=== PATIENT | female | born 1995 | race Caucasian/White ===

== ENCOUNTER 2021-12-19 15:47 | Emergency (ER) | payer OTHER, SELFPAY ==
[2021-12-19 15:59] VITALS: BP 140/85; PULSE 65; RESP 16; TEMP 36.9; O2SAT 99; BMI 21.0
--- NOTE | 2021-12-19 18:51 | ED.WOUNDLAC ---
HPI - Wound/Laceration General Chief Complaint: Laceration/Wound Stated Complaint: Lac right index finger Time Seen by Provider: 12/19/21 16:10 History of Present Illness HPI narrative: 26-year-old young woman sustained laceration from a glass of leave at work to her right index finger. Presents here around 8 hours later as she does has been able to get it stop bleeding. 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 Is not complaining of significant pain. It is not noting lightheadedness. Was bleeding through Band-Aids. She notes how it seems to stop bleeding finally as she has been sitting here in the exam room applying significant pressure for a period of time. No bleeding problems otherwise noted. Related Data Allergies Allergy/AdvReac Type Severity Reaction Status Date / Time No Known Drug Allergies Allergy Verified 12/19/21 15:58 Review of Systems Status of ROS: Reports: 6 or more systems reviewed and unremarkable except as noted in History and below PFSH PFS Social History Smoking Status: Smoker, status unknown Do you use any of these nicotine containing products: Vaping Products Second hand tobacco smoke exposure: No How often do you have a drink containing alcohol: monthly or less How many standard drinks containing alcohol do you have on a typical day: 1 or 2 How often do you have six or more drinks on one occasion: Never AUDIT-C Alcohol total score: 1 Non-prescribed substance use: denies use and marijuana (any form) service: No Exam Narrative: Exam Narrative: Pleasant. NAD. Otherwise mildly anxious. Dressed in work attire. Breathing easily. Favoring the right hand. Has a 2 x 2 gauze has some some dried blood on it. Examination of right index finger in question shows approximately 1 cm partial dermal laceration semi horizontally on the radial side of the distal phalanx. There is dried blood in the area. It is not bleeding though with manipulation. Sensation intact. Well-perfused. Const: Vital Signs, click to edit/add: Vital Signs - 24 hr 12/19/21 15:59 Temperature 98.4 F Pulse Rate [Pulse Oximeter] 65 Respiratory Rate 16 Blood Pressure [Ri ght Upper Arm] 140/85 H Pulse Oximetry 99 Oxygen Delivery Me thod Room Air Documenting provider has reviewed patient's vital signs: yes Course Course Hospital Course: Discussed options for care. She would like her finger back to his close as possible weight was and is frustrated with how long it has been bleeding. Would like definitive care and least trouble going forward. And again worried about potential infection Vital Signs Vital signs: Initial Vital Signs Temperature 98.4 F 12/19/21 15:59 Temperature Source Temporal Artery Scan 12/19/21 15:59 Pulse Rate 65 12/19/21 15:59 Pulse Rhythm 12/19/21 15:59 Respiratory Rate 16 12/19/21 15:59 Blood Pressure 140/85 H 12/19/21 15:59 Blood Pressure Mean 103 12/19/21 15:59 Blood Pressure Position Supine 12/19/21 15:59 Pulse Oximetry 99 12/19/21 15:59 Oxygen Delivery Method 12/19/21 15:59 Vital Signs Temperature 98.4 F 12/19/21 15:59 Pulse Rate 65 12/19/21 15:59 Respiratory Rate 16 12/19/21 15:59 Blood Pressure 140/85 H 12/19/21 15:59 Pulse Oximetry 99 12/19/21 15:59 Oxygen Delivery Method 12/19/21 15:59 Temperature 98.4 F 12/19/21 15:59 Pulse Rate 65 12/19/21 15:59 Respiratory Rate 16 12/19/21 15:59 Blood Pressure 140/85 H 12/19/21 15:59 Pulse Oximetry 99 12/19/21 15:59 Oxygen Delivery Method 12/19/21 15:59 MDM - Wound/Laceration MDM Narrative Medical decision making narrative: Therefore proceed with suturing. Injected the radial side a digital block. This did achieve anesthesia to the more palmar surface suture that was placed. Cleansed with Shur-Clens type liquid. Sutured with total of 2 6-0 Ethilon interrupted sutures. good wound approximation is achieved. Control of bleeding. Antibiotic ointment and Band-Aid placed. Discharge Plan Discharge Clinical Impression: Finger laceration Patient Disposition: Home, Self-Care Condition: Improved Additional Instructions: Can clean up initially as needed. Sutures out in?6 days. Okay to get wet but avoid soaking while sutures are in. Antibiotic ointment for 3 days and then to a dry bandage. Report redness passing the first knuckle, marked increase in pain, purulent drainage. Elevation and ibuprofen for discomfort. Stand Alone Forms: [facility] Info Instructions
== END 2021-12-19 16:57 | disposition home or self-care (01) ==
LOC: ED 16:49
PROVIDERS: Emergency Provider Family Medicine; PCP Physician Assistant Medical
DX: S61.210A Laceration without foreign body of right index finger without damage to nail, initial encounter (principal); W25.XXXA Contact with sharp glass, initial encounter; Y93.89 Activity, other specified; Y92.89 Other specified places as the place of occurrence of the external cause; Y99.0 Civilian activity done for income or pay
CPT/HCPCS: 12001; 99282; 99283

== ENCOUNTER 2023-03-03 10:40 | Emergency (ER) | payer OTHER, SELFPAY ==
[2023-03-03 10:47] VITALS: BP 117/81; PULSE 96; RESP 16; TEMP 36.8; O2SAT 100; BMI 23.8
[2023-03-03 11:02] LABS: Appearance Urine Clear (Clear); Bilirubin Urine Negative (Negative); Blood Urine Trace-intact (Negative); Color Urine Yellow (Yellow); Glucose Urine Negative (Negative); Ketones Urine Negative (Negative); Leukocyte Esterase Urine Negative (Negative); Nitrite Urine Negative (Negative); Protein Urine Negative (Negative); Urobilinogen Urine 0.2 (0.2-1.0)
[2023-03-03 11:10] LABS: RBC Urine 0-2 (0-2); WBC Urine 0-2 (0-5)
[2023-03-03 11:11] LABS: Bacteria Urine Few; Squamous Epithelial Cell Urine Few (None-Few)
--- NOTE | 2023-03-03 11:46 | ED_ITS ---
HPI - General Adult General Time Seen by Provider: 11:46 Date Seen: 03/03/23 Chief complaint: Abdominal Pain Stated complaint: Abdominal/lower back pain, fever Time Seen by Provider: 03/03/23 11:46 Source: patient and RN notes reviewed Mode of arrival: ambulatory Limitations: no limitations History of Present Illness HPI narrative: Patient is a very pleasant 27-year-old female who comes to the emergency room with concerns regarding fever as well as abdominal and flank pain. Patient states that she woke yesterday with fever up to 102.1 with associated burning wi th urination. She notes that today the she still feels very cold and has been experiencing pain she shows me the epigastric area radiating to the pelvis along both lower quadrants and in the left flank of the kidney. She states that this is unusual for her and she know she sick because she should not feel this bad. She considered being seen last night for the kidney pain but decided to wait unt il today. She has had nausea with this but she has not had any diarrhea. She denies any respiratory symptoms. She does note unprotected sexual activity within the last 2 weeks. She usually has Partners use a condom but she did not this time. Jayde also asked me to look at an area on her right upper chest where she remove some jewelry. She notes that she had moved this she thought it was in fected and it still remains somewhat red. She is not having significant pain in this area. Related Data Home Medications Medication Instructions Recorded Confirmed gabapentin 300 mg capsule 300 mg PO 3XD 03/03/23 03/03/23 meloxicam 15 mg tablet 15 mg PO DAILY 03/03/23 03/03/23 Previous Rx's Medication Instructions Recorded tramadol 50 mg tablet 50 mg PO Q6H PRN pain #12 tabs 07/19/22 amoxicillin 875 mg-potassium 1 tab PO BID #7 tabs 03/03/23 clavulanate 125 mg tablet doxycycline monohydrate 100 mg 100 mg PO BID #14 tabs 03/03/23 tablet Allergies Allergy/AdvReac Type Severity Reaction Status Date / Time No Known Drug Allergies Allergy Verified 12/19/21 15:58 Review of Systems Status of ROS: Reports: 10 or more systems reviewed and unremarkable except as noted in History and below Const: Reports: fever, chills and fatigue Eyes: Denies: change in vision ENMT: Denies: throat pain, neck pain, throat swelling, ear pain, nasal discharge or nasal congestion Cardio: Denies: chest pain, swelling of feet/ankles, lightheadedness or shortness of breath with exertion Resp: Denies: shortness of breath or cough GI: Reports: abdominal pain and nausea; Denies: vomiting, diarrhea, constipation or blood in stool : Reports: painful urination Musculo: Reports: back pain; Denies: neck pain or extremity pain Integ/Breast: Reports: skin tenderness Neuro: Denies: headache Endo: Reports: fatigue Allergy/Immuno: Denies: throat swelling PFSH [facility] Social History Smoking Status: Smoker, status unknown Do you use any of these nicotine containing products: Vaping Products Second hand tobacco smoke exposure: No How often do you have a drink containing alcohol: monthly or less How many standard drinks containing alcohol do you have on a typical day: 1 or 2 How often do you have six or more drinks on one occasion: Never AUDIT-C Alcohol total score: 1 Non-prescribed substance use: marijuana (any form) service: No Exam Narrative: Exam Narrative: Alert and oriented. Talkative and nontoxic in appearance with a GCS of 15 External ears eyes nose clear. Heart with regular rate and rhythm and lungs are clear bilaterally. Abdomen is soft. She has tenderness of throughout especially epigastrium left upper quadrant left lower quadrant. No CVA tenderness with percussion. However palpation over the left flank does increase her discomfort. She does have pain in her abdomen when I hit the bottom of her heels. She is moving all extremities. There is no guarding with abdominal exam at this time. Normal external female genitalia. No evidence of discharge or odor. Const: Vital Signs, click to edit/add: Vital Signs - 24 hr 03/03/23 10:47 03/03/23 14:50 Temperature 98.3 F Pulse Rate [Pulse Oximeter] 96 77 Respiratory Rate 16 18 Blood Pressure [Le ft Upper Arm] 117/81 123/86 Pulse Oximetry 100 100 Oxygen Delivery Me thod Room Air Room Air Documenting provider has reviewed patient's vital signs: yes Course Course ED Course: Alert and oriented. Talkative and nontoxic in appearance with a GCS of 15 External ears eyes nose clear. Heart with regular rate and rhythm and lungs are clear bilaterally. Abdomen is soft. She has tenderness of throughout especially epigastrium left upper quadrant left lower quadrant. No CVA tenderness with percussion. However palpation over the left flank does increase her discomfort. She does have pain in her abdomen when I hit the bottom of her heels. She is moving all extremities. There is no guarding with abdominal exam at this time. Pelvic exam shows normal external genitalia. No obvious discharge and there is no foul odor. Wet prep accomplished. Cervical X without normality visually. Cervical swab done. No cervical motion tenderness on bimanual exam. Patient does note some discomfort with lower pelvic palpation during bimanual exam. No masses are palpated. Reevaluation(s) Reevaluation #1: Patient notes feeling improved after saline and Toradol. Reevaluation #2: Patient notes that she is feeling much better after antibiotics fluids and Toradol. Consultations Consultation #1: I had the pleasure of speaking to Dr. Jesus Alberto JOHNSTON. At this time Jayde presents with symptoms consistent with pyelonephritis but a reassuring urinalysis. Given recent unprotected sexual activity we do discuss use of antibiotics for potential PID treatment. PRESTON suggests initiation of Rocephin with outpatient doxycycline plus or minus Flagyl. Vital Signs Vital signs: Initial Vital Signs Temperature 98.3 F 03/03/23 10:47 Temperature Source Temporal Artery Scan 03/03/23 10:47 Pulse Rate 96 03/03/23 10:47 Respiratory Rate 16 03/03/23 10:47 Blood Pressure 117/81 03/03/23 10:47 Blood Pressure Mean 93 03/03/23 10:47 Blood Pressure Position Sitting 03/03/23 10:47 Pulse Oximetry 100 03/03/23 10:47 Oxygen Delivery Method Room Air 03/03/23 10:47 Vital Signs Temperature 98.3 F 03/03/23 10:47 Pulse Rate 96 03/03/23 10:47 Respiratory Rate 16 03/03/23 10:47 Blood Pressure 117/81 03/03/23 10:47 Pulse Oximetry 100 03/03/23 10:47 Oxygen Delivery Method Room Air 03/03/23 10:47 Temperature 98.3 F 03/03/23 10:47 Pulse Rate 77 03/03/23 14:50 Respiratory Rate 18 03/03/23 14:50 Blood Pressure 123/86 03/03/23 14:50 Pulse Oximetry 100 03/03/23 14:50 Oxygen Delivery Method Room Air 03/03/23 14:50 Medications Administered Medications: Discontinued Medications Generic Name Dose Route Start Last Admin Trade Name Symone PRN Reason Stop Dose Admin Sodium Chloride 1,000 mls @ 1,000 mls/hr 03/03/23 11:58 03/03/23 13:35 0.9 % Sodium Chloride 1000 Ml IV 03/03/23 12:57 Infused .Q1H [facility] Infusion Ceftriaxone Sodium 1 gm/ 100 mls @ 200 mls/hr 03/03/23 15:36 03/03/23 15:51 Sodium Chloride IVPB 03/03/23 15:37 200 mls/hr ONCE ONE Administration Ketorolac Tromethamine 15 mg 03/03/23 11:55 03/03/23 12:32 Ketorolac 15 Mg/Ml Inj IVP 03/03/23 11:56 15 mg ONCE ONE Administration Medical Decision Making MDM Narrative Medical decision making narrative: 1. Abdominal pain-patient has symptoms consistent with pyelonephritis but a reassuring urinalysis and CT. In combination with recent unprotected sexual activity will treat patient with antibiotics that would cover pyelonephritis and PID. Patient is given 1 g Rocephin IV in the ED. She will continue on Augmentin 875 mg p.o. b.i.d. x7 days as well as doxycycline 100 mg p.o. b.i.d. x7 days. She has a follow-up with her OBGYN at [facility] and less than a week for a right sided complex cyst. If this is not noted on today's CT. Patient is to push fluids and return to the emergency room for fever, worsening symptoms. 2. Unprotected sexual activity-. Hepatitis RPR, chlamydia, gonorrhea checked today. Gonorrhea is negative as is HIV. RPR and hepatitis panel as well as chlamydia currently pending. A wet prep is negative for yeast Trichomonas and clue cells. HCG is negative. 3. Healing Jewel re wound-no evidence of infection noted on right upper chest were patient had removed a Juul. 4. Disposition-home at this time. Sleep. Return for worsening symptoms and as needed. Follow-up as scheduled with OBGYN next week March 10. Medical Records Medical records reviewed: Yes I reviewed the patient's medical records Lab Data Lab results reviewed: Yes I reviewed the patient's lab results Labs: Lab Results 03/03/23 03/03/23 03/03/23 Range/Units 10:55 12:25 13:26 WBC 3.96 L (4.50-11.00) K/uL RBC 4.09 (4.00-5.20) m/uL Hgb 12.6 (12.0-16.0) gm/dL Hct 37.5 (33.0-51.0) % MCV 92 (80-100) fL MCH 31 (26-34) pg MCHC 34 (32-36) gm/dL RDW Coeff of Kasey 11.8 (11.5-15.5) % Plt Count 144 (140-440) K/uL Neut % (Auto) 73.1 H (42.0-72.0) % Lymph % (Auto) 17.9 L (20-44) % [place] % (Auto) 8.1 (0.0-11.0) % Eos % (Auto) 0.3 (0.0-7.0) % Baso % (Auto) 0.3 (0.0-3.0) % Neut # (Auto) 2.90 (1.7-7.0) K/uL Lymph # (Auto) 0.70 L (0.90-2.90) K/uL [place] # (Auto) 0.30 (0.00-0.90) K/UL Eos # (Auto) 0.00 (0.00-0.50) K/uL Baso # (Auto) 0.00 (0.00-0.30) K/uL Abs Immat Gran (auto) 0.00 (0.00-0.30) K/uL Imm/Tot Granulo (auto) 0.3 % Sodium 135 (135-149) mmol/L Potassium 3.7 (3.6-5.1) mmol/L Chloride 104 (96-114) mmol/L Carbon Dioxide 26 (20-32) mmol/L Anion Gap 5 L (7-15) mEq/L BUN 11 (5-24) mg/dL Creatinine 0.7 (0.5-1.5) mg/dL Estimated Creat Clear 93.79 Estimated GFR 120 ml/min Glucose 82 (60-115) mg/dL Calcium 8.6 (8.4-10.6) mg/dL Total Bilirubin 1.9 H (0.1-1.5) mg/dL Direct Bilirubin 0.3 (0.0-0.5) mg/dL AST 19 (12-35) U/L ALT 13 (4-35) U/L Alkaline Phosphatase 46 (40-150) U/L C-Reactive Protein 1.7 H (0.5-1.0) mg/dL Total Protein 6.6 (6.0-8.3) g/dL Albumin 4.0 (3.3-5.0) g/dL HCG, Qual Negative (Negative) Urine Color Yellow (Yellow) Urine Appearance Clear (Clear) Urine pH 6.0 (5.0-8.5) Ur Specific [place] 1.010 (1.000-1.030) Urine Protein Negative (Negative) Urine Glucose (UA) Negative (Negative) Urine Ketones Negative (Negative) Urine Blood Trace-intact A (Negative) Urine Nitrite Negative (Negative) Urine Bilirubin Negative (Negative) Urine Urobilinogen 0.2 (0.2-1.0) Ur Leukocyte Esterase Negative (Negative) Urine RBC 0-2 (0-2) Urine WBC 0-2 (0-5) Ur Squamous Epith Cells Few (None-Few) Urine Bacteria Few A (None) Vaginal Trichomonas (None Seen) Vaginal Yeast (None Seen) Vaginal Clue Cells (None Seen) C.trachomatis Ampl DNA (No Detected) SARS-CoV-2 (PCR) Negative SARS-CoV-2 (Negative) HIV 1&2 Ab/P24 Ag 4thGn Negative (Negative) Influenza Type A (PCR) Negative PCR FLU A (Negative) Influenza Type B (PCR) Negative PCR FLU B (Negative) N.gonorrhoeae Ampl DNA (No Detected) RSV (PCR) Negative PCR RSV (Negative) Lab Acknowledgement 03/03/23 03/03/23 Range/Units 14:18 14:25 WBC (4.50-11.00) K/uL RBC (4.00-5.20) m/uL Hgb (12.0-16.0) gm/dL Hct (33.0-51.0) % MCV (80-100) fL MCH (26-34) pg MCHC (32-36) gm/dL RDW Coeff of Kasey (11.5-15.5) % Plt Count (140-440) K/uL Neut % (Auto) (42.0-72.0) % Lymph % (Auto) (20-44) % [place] % (Auto) (0.0-11.0) % Eos % (Auto) (0.0-7.0) % Baso % (Auto) (0.0-3.0) % Neut # (Auto) (1.7-7.0) K/uL Lymph # (Auto) (0.90-2.90) K/uL [place] # (Auto) (0.00-0.90) K/UL Eos # (Auto) (0.00-0.50) K/uL Baso # (Auto) (0.00-0.30) K/uL Abs Immat Gran (auto) (0.00-0.30) K/uL Imm/Tot Granulo (auto) % Sodium (135-149) mmol/L Potassium (3.6-5.1) mmol/L Chloride (96-114) mmol/L Carbon Dioxide (20-32) mmol/L Anion Gap (7-15) mEq/L BUN (5-24) mg/dL Creatinine (0.5-1.5) mg/dL Estimated Creat Clear Estimated GFR ml/min Glucose (60-115) mg/dL Calcium (8.4-10.6) mg/dL Total Bilirubin (0.1-1.5) mg/dL Direct Bilirubin (0.0-0.5) mg/dL AST (12-35) U/L ALT (4-35) U/L Alkaline Phosphatase (40-150) U/L C-Reactive Protein (0.5-1.0) mg/dL Total Protein (6.0-8.3) g/dL Albumin (3.3-5.0) g/dL HCG, Qual (Negative) Urine Color (Yellow) Urine Appearance (Clear) Urine pH (5.0-8.5) Ur Specific [place] (1.000-1.030) Urine Protein (Negative) Urine Glucose (UA) (Negative) Urine Ketones (Negative) Urine Blood (Negative) Urine Nitrite (Negative) Urine Bilirubin (Negative) Urine Urobilinogen (0.2-1.0) Ur Leukocyte Esterase (Negative) Urine RBC (0-2) Urine WBC (0-5) Ur Squamous Epith Cells (None-Few) Urine Bacteria (None) Vaginal Trichomonas No Trichomonas Seen (None Seen) Vaginal Yeast No Yeast Seen (None Seen) Vaginal Clue Cells No Clue Cells Seen (None Seen) C.trachomatis Ampl DNA NOT DETECTED (No Detected) SARS-CoV-2 (PCR) (Negative) HIV 1&2 Ab/P24 Ag 4thGn (Negative) Influenza Type A (PCR) (Negative) Influenza Type B (PCR) (Negative) N.gonorrhoeae Ampl DNA NOT DETECTED (No Detected) RSV (PCR) (Negative) Lab Acknowledgement Test Added Imaging Data CT scan - abdomen: Attestation: I have reviewed the pertinent imaging results. Radiologist's impression: The lung bases are clear. The liver is normal in attenuation without intrahepatic biliary ductal dilatation. The portal vein is patent. The gallbladder is unremarkable without evidence of radiopaque calculus. There is no significant common biliary ductal dilatation or abrupt cut off. The spleen is normal in enhancement and size. The stomach and duodenum are grossly unremarkable. The pancreas is normal in enhancement without significant atrophy. The adrenal glands are unremarkable. The kidneys demonstrate preserved corticomedullary differentiation without evidence of obstructive uropathy. There is moderate stool seen throughout the colon with minimal distal colonic diverticulosis without evidence of diverticulitis. The appendix is unremarkable. There is no significant mesenteric, retroperitoneal, or pelvic sidewall lymph nodes. The aorta is nonaneurysmal. There is no significant atherosclerotic disease appreciated. There is an involuting left ovarian follicle. There is no free fluid or free air. The anterior abdominal wall is intact without significant hernias. The lumbar vertebral body heights are grossly maintained in satisfactory alignment without evidence of displaced fracture, lytic or blastic lesion. Impression: No acute intraabdominal abnormality is appreciated. The kidneys demonstrate preserved corticomedullary differentiation without obvious hydronephrosis or pyelonephritis. Incidental note made of an involuting left-sided ovarian follicle. Discharge Plan Discharge Clinical Impression: Acute flank pain Abdominal pain Qualifiers: Abdominal location: unspecified location Qualified Code(s): R10.9 - Unspecified abdominal pain Patient Disposition: Home, Self-Care Condition: Improved Additional Instructions: Start doxycycline and Augmentin before bedtime tonight. These medications will be twice a day or morning and night. Stay well hydrated and push fluids. If needed you may alternate ibuprofen and Tylenol every 4 hours. Return to the emergency room if you experience high fever, vomiting, increasing pain and as needed. Prescriptions: New doxycycline monohydrate 100 mg tablet 100 mg PO BID Qty: 14 0RF amoxicillin-pot clavulanate 875-125 mg tablet 1 tab PO BID Qty: 7 0RF No Action tramadol 50 mg tablet 50 mg PO Q6H PRN (Reason: pain) Qty: 12 0RF meloxicam 15 mg tablet 15 mg PO DAILY gabapentin 300 mg capsule 300 mg PO 3XD Follow Up/Referrals: Mahsa Abbott PA-C [Primary Care Provider] - Stand Alone Forms: [facility] Info Instructions
[2023-03-03] MEDS: KETOROLAC 15 MG/ML inj IVP (12:32)
[2023-03-03] MEDS: 0.9 % SODIUM CHLORIDE 1000 ml 1,000 ML IV (12:32)
[2023-03-03 12:37] LABS: Basophils Percent Auto 0.3 % (0.0-3.0); Eosinophils Percent Auto 0.3 % (0.0-7.0); Hematocrit 37.5 % (33.0-51.0); Hemoglobin* 12.6 gm/dL (12.0-16.0); Immature Granulocytes Pct Auto 0.3 %; Lymphocytes Percent Auto 17.9 % (20-44); Mean Corpuscular HGB Conc 34 gm/dL (32-36); Mean Corpuscular Hemoglobin 31 pg (26-34); Mean Corpuscular Volume 92 fL (80-100); Monocytes Percent Auto 8.1 % (0.0-11.0); Neutrophils Percent Auto 73.1 % (42.0-72.0); Platelet Count* 144 K/uL (140-440); RDW Coefficient of Variation % 11.8 % (11.5-15.5); Red Blood Count 4.09 m/uL (4.00-5.20); White Blood Count* 3.96 K/uL (4.50-11.00)
[2023-03-03 12:48] LABS: Slide Review Reflex No
[2023-03-03 12:57] LABS: Chloride* 104 mmol/L (96-114)
[2023-03-03 12:58] LABS: Potassium* 3.7 mmol/L (3.6-5.1); Sodium* 135 mmol/L (135-149)
[2023-03-03 13:00] LABS: Creatinine* 0.7 mg/dL (0.5-1.5); Est. Creatinine Clearance* 93.79; Estimated Glomerular Filt Rate 120 ml/min
[2023-03-03 13:01] LABS: Alanine Aminotransferase* 13 U/L (4-35); Alkaline Phosphatase* 46 U/L (40-150); Anion Gap 5 mEq/L (7-15); Aspartate Amino Transferase* 19 U/L (12-35); Blood Urea Nitrogen* 11 mg/dL (5-24); Calcium* 8.6 mg/dL (8.4-10.6); Carbon Dioxide* 26 mmol/L (20-32); Glucose* 82 mg/dL (60-115); Total Protein* 6.6 g/dL (6.0-8.3)
[2023-03-03 13:04] LABS: C Reactive Protein* 1.7 mg/dL (0.5-1.0)
[2023-03-03 13:06] LABS: HCG Qualitative Serum* Negative (Negative)
--- NOTE | 2023-03-03 13:17 | CRLHL7_ITS ---
For Patients: As a result of the Century Cures Act, medical imaging exams and procedure reports are released immediately into your electronic medical record. You may view this report before your referring provider. If you have questions, please contact your health care provider. Indication: Fever with abdominal and left flank pain Technique: Volumetric multidetector CT images of the abdomen and pelvis were obtained after the administration of intravenous contrast. 60 cc Isovue 370 low osmolar intravenous contrast Comparison: None available. Findings: The lung bases are clear. The liver is normal in attenuation without intrahepatic biliary ductal dilatation. The portal vein is patent. The gallbladder is unremarkable without evidence of radiopaque calculus. There is no significant common biliary ductal dilatation or abrupt cut off. The spleen is normal in enhancement and size. The stomach and duodenum are grossly unremarkable. The pancreas is normal in enhancement without significant atrophy. The adrenal glands are unremarkable. The kidneys demonstrate preserved corticomedullary differentiation without evidence of obstructive uropathy. There is moderate stool seen throughout the colon with minimal distal colonic diverticulosis without evidence of diverticulitis. The appendix is unremarkable. There is no significant mesenteric, retroperitoneal, or pelvic sidewall lymph nodes. The aorta is nonaneurysmal. There is no significant atherosclerotic disease appreciated. There is an involuting left ovarian follicle. There is no free fluid or free air. The anterior abdominal wall is intact without significant hernias. The lumbar vertebral body heights are grossly maintained in satisfactory alignment without evidence of displaced fracture, lytic or blastic lesion. Impression: No acute intraabdominal abnormality is appreciated. The kidneys demonstrate preserved corticomedullary differentiation without obvious hydronephrosis or pyelonephritis. Incidental note made of an involuting left-sided ovarian follicle. Please note that all CT scans at this facility use dose modulation, iterative reconstruction, and/or weight-based dosing when appropriate to reduce radiation dose to as low as reasonably achievable. Dictated by Kavin Hylton MD @ 03/03/2023 2:34:37 PM (Electronically Signed)
[2023-03-03 13:41] LABS: HIV 1/2/P24 Combo Screen* Negative (Negative)
[2023-03-03 14:10] LABS: PCR FLU A Negative PCR FLU A (Negative); PCR FLU B Negative PCR FLU B (Negative); PCR RSV Negative PCR RSV (Negative)
[2023-03-03 14:42] LABS: Bilirubin Direct* 0.3 mg/dL (0.0-0.5)
[2023-03-03 14:44] LABS: Bilirubin Total* 1.9 mg/dL (0.1-1.5)
[2023-03-03 14:47] LABS: SARS PCR* Negative SARS-CoV-2 (Negative)
[2023-03-03 14:50] VITALS: BP 123/86; PULSE 77; RESP 18; O2SAT 100
[2023-03-03 14:53] LABS: Clue Cells No Clue Cells Seen (None Seen); Trichomonas No Trichomonas Seen (None Seen); Yeast No Yeast Seen (None Seen)
[2023-03-03] MEDS: cefTRIAXone 1 GM in 0.9 % SODIUM CHLORIDE Mini-bag 100 ML IVPB (15:51)
[2023-03-03 16:06] LABS: Chlamydia DNA Amplified* NOT DETECTED (No Detected); GC DNA Amplified* NOT DETECTED (No Detected)
[2023-03-04 19:36] LABS: Hep A Ab, IgM Negative (Negative); Hep B Core Ab, IgM Negative (Negative); Hep B Surface Antigen Negative (Negative); Hep C Ab by CIA Index 0.06 IV; Hep C Ab by CIA Interp Negative (Negative)
[2023-03-04 19:57] LABS: Rapid Plasma Reagin (RPR) Non Reactive (Non Reactive)
== END 2023-03-03 16:49 | disposition home or self-care (01) ==
PROVIDERS: Emergency Provider Family Medicine; PCP Physician Assistant Medical
DX: R10.9 Unspecified abdominal pain (principal); Z72.51 High risk heterosexual behavior
CPT/HCPCS: 36415; 74177; 80053; 80074; 81001; 82248; 84703; 85025; 86140; 86592; 86703; 87086; 87210; 87491; 87591; 87631; 96365; 96375; 99284; 99285; J0696; J1885; J7030; Q9967

== ENCOUNTER 2024-02-01 14:44 | Emergency (ER) | payer OTHER, SELFPAY ==
[2024-02-01 15:02] VITALS: BP 113/64; PULSE 85; RESP 16; TEMP 36.7; O2SAT 98; BMI 21.6
--- NOTE | 2024-02-01 15:49 | ED.GENADULT ---
HPI - General Adult General Date Seen: 02/01/24 Chief complaint: Ear/Nose/Throat Problem Stated complaint: Eyes/ears burning post bug bite 5 days ago Time Seen by Provider: 02/01/24 15:48 History of Present Illness HPI narrative: This is a pleasant 28-year-old female presenting to the ER today for evaluation a painful burning rash affecting her left cheek and both of her eyes. She says she had a bug bite that occurred about fiber 6 days ago (she thinks it was an Beetle) that bit her on the left cheek. She took the Beetle off. The following morning she had had a swollen erythematous slightly purple hued area on her left cheek from the left cheek over the zygoma over the bug bite occurred up to her left eye. She also had a whitish pustule. She does have acne but does not think that this was an acne lesion. She she felt some fluid underneath a pustule on was able to express pus out. Ever since then she has had ongoing irritation of the skin on her left cheek as well as she has now developed redness and irritation of her upper and lower eyelids of both her left eye and right eye. The bus stop draining that day, last . A day or 2 later she also started to feel an indurated firm area of tissue just medial to where the pus had been draining on her left cheek. That is still there. She has had ongoing itchiness and burning affecting both her eyes and her left cheek since then. No other rashes. Today at work she was noting some blurriness of her vision. She has had some subjective feelings of warmth and possible feet either but has not measured a fever. No nasal congestion. No earache. Perhaps mild cough. No shortness of breath. No known sick exposures. She does not wear glasses or contacts. No known injury to her eyes or any chemical exposures. Related Data Home Medications ?Medication ?Instructions ?Recorded ?Confirmed gabapentin 300 mg capsule 300 mg PO 3XD 03/03/23 03/03/23 meloxicam 15 mg tablet 15 mg PO DAILY 03/03/23 03/03/23 Previous Rx's ?Medication ?Instructions ?Recorded tramadol 50 mg tablet 50 mg PO Q6H PRN pain #12 tabs 07/19/22 amoxicillin 875 mg-potassium 1 tab PO BID #7 tabs 03/03/23 clavulanate 125 mg tablet doxycycline monohydrate 100 mg 100 mg PO BID #14 tabs 03/03/23 tablet cephalexin 500 mg capsule 500 mg PO TID #21 caps 02/01/24 hydroxyzine HCl 25 mg tablet 25 mg PO TID PRN #14 tabs 02/01/24 prednisone 20 mg tablet 60 mg (3 x 20 mg) PO DAILY #15 tabs 02/01/24 Allergies Allergy/AdvReac Type Severity Reaction Status Date / Time No Known Drug Allergies Allergy Verified 12/19/21 15:58 PFSH [facility] Social History Smoking Status: Smoker, status unknown Do you use any of these nicotine containing products: Vaping Products Second hand tobacco smoke exposure: No How often do you have a drink containing alcohol: monthly or less How many standard drinks containing alcohol do you have on a typical day: 1 or 2 How often do you have six or more drinks on one occasion: Never AUDIT-C Alcohol total score: 1 Non-prescribed substance use: marijuana (any form) service: No Exam Narrative: Exam Narrative: Constitutional: Appears well-developed and well-nourished. Alert. Conversant. Non toxic. HENT: Head: Atraumatic. No depressed skull fracture, Raccoon Eyes, Perez's sign, or hemotympanum. Face normal. TMs normal Nose: Nose normal. Mucosa normal Mouth/Throat: Oral mucosa is clear and moist. no trismus. Pharynx normal. Tonsils symmetric. No tonsillar enlargement, erythema, or exudate. Eyes: Vulvar Conjunctivae normal. EOM normal. No exophthalmos or enophthalmos. Pupils equal, round, and reactive to light. No scleral icterus. She does have mild erythema affecting the skin her upper and lower eyelids bilaterally. No purulent drainage. Visual acuity 20/40 in the right eye, 20/70 left eye. No fluorescein uptake in either eye. No visual corneal foreign bodies. Neck: Normal range of motion. Neck supple. No tracheal deviation present. Cardiovascular: Normal rate, regular rhythm. No gallop. No friction rub. No murmur heard. Symmetric radial artery pulses Pulmonary/Chest: Effort normal. No stridor. No respiratory distress. No wheezes. No rales. No rhonchi Musculoskeletal: RUE: Normal range of motion. No tenderness. No deformity LUE: Normal range of motion. No tenderness. No deformity RLE: Normal range of motion. No edema. No tenderness. No deformity LLE: Normal range of motion. No edema. No tenderness. No deformity Lymph: No cervical adenopathy. Neurological: Alert and oriented to person, place, and time. Normal strength. CN II-VII intact. No sensory deficit. GCS eye subscore is 4. GCS verbal subscore is 5. GCS motor subscore is 6. Normal coordination Skin: No definite erythema of the skin of her cheek. There is roughly a 1 cm palpable area of firm indurated tissue on the left cheek over the zygoma without any palpable fluctuance. Possible small area of facial cellulitis. I do not think it represents a persistent abscess. Skin is otherwise warm and dry. No rash noted. No pallor. Normal capillary refill. Psychiatric: Normal mood. Normal affect. Const: Vital Signs, click to edit/add: Vital Signs - 24 hr 02/01/24 15:02 Temperature 98.1 F Pulse Rate [Pulse Oximeter] 85 Respiratory Rate 16 Blood Pressure [Ri ght Upper Arm] 113/64 Pulse Oximetry 98 Oxygen Delivery Me thod Room Air Course Vital Signs Vital signs: Initial Vital Signs Temperature 98.1 F 02/01/24 15:02 Temperature Source Temporal Artery Scan 02/01/24 15:02 Pulse Rate 85 02/01/24 15:02 Respiratory Rate 16 02/01/24 15:02 Blood Pressure 113/64 02/01/24 15:02 Blood Pressure Mean 80 02/01/24 15:02 Pulse Oximetry 98 02/01/24 15:02 Oxygen Delivery Method Room Air 02/01/24 15:02 Vital Signs Temperature 98.1 F 02/01/24 15:02 Pulse Rate 85 02/01/24 15:02 Respiratory Rate 16 02/01/24 15:02 Blood Pressure 113/64 02/01/24 15:02 Pulse Oximetry 98 02/01/24 15:02 Oxygen Delivery Method Room Air 02/01/24 15:02 Temperature 98.1 F 02/01/24 15:02 Pulse Rate 85 02/01/24 15:02 Respiratory Rate 16 02/01/24 15:02 Blood Pressure 113/64 02/01/24 15:02 Pulse Oximetry 98 02/01/24 15:02 Oxygen Delivery Method Room Air 02/01/24 15:02 Medical Decision Making MDM Narrative Medical decision making narrative: This patient presents for evaluation of skin redness upper left cheek and itchy red skin of both of her eyes affecting the upper and lower lids. She had a bug bite on her left cheek several days ago prior to onset of these other symptoms. The history, physical exam is consistent could be consistent with a mild left cheek cellulitis. She had a small area that was draining some purulent fluid several days ago but is no longer draining. I think there may be a small residual abscess capsule there but no residual abscess fluid require incision and drainage. There do not appear at this time to be any complication of cellulitis including abscess, necrotizing fascitis, lymphangitis, lymphadenitis, osteomyelitis, sepsis, or shock. The patient is not immunosuppressed or diabetic. Supportive outpatient management is indicated with antibiotics. Will start her on cephalexin 500 t.i.d.. The patient is instructed to follow-up with primary care physician to ensure no progression and rapid resolution and given precautions to return if high fever, spread greater than 2 cm outside the current area of induration, worsening pain, vomiting or any other worsening. Questions answered and return precautions reviewed. With the itchy eyes consider possible allergic phenomena. She does not have any conjunctivitis affecting the bulbar conjunctiva. She may have some blepharitis of her upper and lower lids. She is reporting some blurry vision for the past couple of days but I think that is probably related to tear film. Fluorescein exam is normal. No evidence for foreign bodies in the cornea or under the lids. Consider possible allergic phenomena or viral itching. Will try her on a course of prednisone. Hydroxyzine for itching. Discharge Plan Discharge Clinical Impression: Bug bite, Blepharitis, Cellulitis, face Instructions: Cellulitis (ED), Blepharitis (ED) Additional Instructions: As we discussed, please return to the ER if you have worsening symptoms as especially worsening swelling of her eyelids, worsening vision, high fever, or increasing swelling of her cheek. If you are not substantially improved within 48 hours, please return to the ER or recheck with your doctor. Prescriptions: New cephalexin 500 mg capsule 500 mg PO TID Qty: 21 0RF hydroxyzine HCl 25 mg tablet 25 mg PO TID PRNQty: 14 0RF prednisone 20 mg tablet 60 mg PO DAILY Qty: 15 0RF No Action tramadol 50 mg tablet 50 mg PO Q6H PRN (Reason: pain) Qty: 12 0RF meloxicam 15 mg tablet 15 mg PO DAILY gabapentin 300 mg capsule 300 mg PO 3XD doxycycline monohydrate 100 mg tablet 100 mg PO BID Qty: 14 0RF amoxicillin-pot clavulanate 875-125 mg tablet 1 tab PO BID Qty: 7 0RF Follow Up/Referrals: Mahsa Abbott PA-C [Primary Care Provider] - Stand Alone Forms: MyHealth Info Instructions
[2024-02-01] MEDS: FLUORESCEIN SODIUM TOPICAL STRIP 1 STRIP EYE-BOTH (17:10)
== END 2024-02-01 17:20 | disposition home or self-care (01) ==
LOC: ED 16:31
PROVIDERS: Emergency Provider Emergency Medicine; PCP Physician Assistant Medical
DX: L03.211 Cellulitis of face (principal); H01.00B Unspecified blepharitis left eye, upper and lower eyelids; H01.00A Unspecified blepharitis right eye, upper and lower eyelids; W57.XXXA Bitten or stung by nonvenomous insect and other nonvenomous arthropods, initial encounter
CPT/HCPCS: 99283; 99284; A9270

== ENCOUNTER 2024-04-16 14:50 | Emergency (ER) | payer OTHER, SELFPAY ==
--- OUTSIDE RECORDS SUMMARY | 2024-04-16 14:53 | XMS_ITS | Clinical Summary ---
Author Organization [facility] Address [place], [place] [address] Care Team Providers Care Staffing Rn Name Role Phone Mahsa Abbott Primary Care Provider Allergies Active Allergy Reactions Criticality Noted Date Comments Blood-Group Specific Substance *Unknown 09/24/2013 Patient has a probable passive anti-D antibody. Orders for blood products may be delayed. Medications albuterol HFA (Ventolin HFA) 90 mcg/actuation inhalerIndications :Cough Inhale 1-2 Puffs by mouth every 6 hours if needed for Shortness Of Breath. 1 Each 2 Active naloxone (NARCAN) 4 mg/actuation nasal sprayIndications:A ccidental overdose, initial encounter,Opioid abuse (HC) Inhale 1 [place] into affected nostril(s) each time if needed for Patient Diff To Arouse or Resp Rate < 8 / min. Additional doses may be given every 2 to 3 minutes until emergency medical assistance arrives. 2 Each 01/21/2022 3:41 PM BOAT DRIVER 2 Active LORazepam (ATIVAN) 0.5 mg tabIndications:Anx iety Take 1 Tablet (0.5 mg) by mouth 2 times daily if needed for Anxiety. 60 Tablet 3 Active triamcinolone 0.5% (ARISTOCORT) 0.5 % creamIndications:B ug bite, initial encounter Apply topically to affected area(s) three times daily. Apply to wrist 30 g 3 Active ipratropium (ATROVENT NASAL) 21 mcg (0.03 %) nasal sprayIndications:E ustachian tube dysfunction, right Inhale 2 Sprays into affected nostril(s) three times daily. [place] dose in each nostril. 30 mL 3 Active gabapentin (NEURONTIN) 300 mg capsuleIndications :Tension headache,Pelvic pain Take 1 Capsule (300 mg) by mouth three times daily. 90 Capsule 3 3 Active ondansetron (ZOFRAN ODT) 4 mg disintegrating tabletIndications: Nausea Place 1 Tablet (4 mg) on the tongue every 8 hours if needed for Nausea/Vomitin g. 30 Tablet 3 Active meloxicam 15 mg tabletIndications: Tension headache TAKE 1 TABLET(15 MG) BY MOUTH EVERY DAY 90 Tablet 4 Active SUMAtriptan (IMITREX) 100 mg tabletIndications: Headache syndrome GIVE AT MINIMUM OF 2 HOURS APART. MAX DOSE 200MG PER 24 HOURS. TAKE 1 TABLET BY MOUTH ONE TIME NEEDED FOR MIGRAINE 10 Tablet 4 Active Active Problems Problem Noted Date Diagnosed Date Pap smear for cervical cancer screening 04/13/19 23 Overview (04/13/2022): 03/2022: NIL/HPV neg. Plan: Pap and HPV in 5 years. Posttraumatic stress disorder 10/18/2018 Severe episode of recurrent major depressive disorder, without psychotic features 10/18/2018 Asthma 07/17/2009 Resolved Problems Problem Noted Date Diagnosed Date Resolved Date Encounter for insertion of i ntrauterine contraceptive device (IUD) 07/08/2016 01/16/2021 Overview (07/08/2016): gurmeet 07/07/2016 Post depression 12/27/201305/25 Threatened labor 09/24/2013 08/18/2014 Vaginal delivery 09/24/2013 08/18/2014 Thrush 09/20/2013 07/08/2016 History of substance abuse 09/20/2013 0 05/25/2022 History of suicide attempt 09/20/2013 0 05/25/2022 High-risk supervision 09/20/2013 08/18/2014 Very young maternal age 0709/20/201308/06 UTI in 09/20/2013 08/18/2014 SGA (small for gestational age) 09/20/2013 08/18/2014 Rh negative status during 09/13/2013 08/18/2014 UTI (urinary tract infection ) in in second trimester 09/13/2013 09/20/2013 Premature rupture of membran es in , antepartum 09/11/2013 08/18/2014 Supervision of normal first 05/11/2013 09/20/2013 Overview (08/03/2013): Technique: Transabdominal scanning is obtained through a gravid uterus. Findings: There is a single gestational sac seen within the uterus. Yolk sac is identified. [place]-rump length measures 1.35 cm consistent with a gestational age of 7 weeks 4 days. heart rate is 154 beats per minute. The left ovary measured 2.4 x 1.4 x 1.7 cm. The right ovary measured 2.5 x 1.8 x 1.4 cm. Impression: 1. Single living intrauterine of 7 weeks 4 days with estimated date of confinement of 12/08/2013. FOB Jose C O Negative 2. heart rate 154 beats per minute Indication: survey. Technique: Sonographic images were obtained through a gravid uterus. Findings: There is a single fetus in a cephalic presentation with a heart rate of 146 beats per minute. Placenta is located anteriorly. MARC is normal at 12.9 cm. Cervix measures 3.5 cm. No anomalies are seen on the survey. Gestational age by composite measurements is 20 weeks 4 days for an estimated date of confinement of 12/10/2013. Estimated weight is 386 g which is in the 46th percentile. Impressions.: 1. Single fetus in a cephalic presentation with a heart rate of 146 beats per minute. 2. No anomalies seen on the survey. 3. Gestational age by composite measurements 20 weeks 4 days for an estimated date of confinement of 12/10/2013. Suicide attempt by inadequate means 12/13/2012 09/20/2013 Heroin withdrawal 12/13/2012 09/20/2013 Attention deficit disorder w ith hyperactivity(314.01) 01/25/2008 05/25/2022 Anxiety state, unspecified 01/25/2008 0 10/18/2018 Major depressive disorder, s deepika episode, unspecified 11/22/2007 10/18/2018 Encounters Date Type Department Care Team Description 02/22/2024 7:00 AM BOAT DRIVER Orders Only [facility] [address] [place] [address] Lab, [place] Lab 02/21/2024 1:40 PM BOAT DRIVER Office Visit [facility] [address] [place] [address] Mahsa Abbott PA Gi Problem (Stomach burning, a lot nausea, not eating or drinking much, anal itching, on and off L sided back pain. Treated her self for parasites and wants to discuss. Eye issues, feels like something is moving inside her eyes.) 02/21/2024 Travel 02/01/2024 Nurse Triage [facility] [address] [place] [address] Mahsa Abbott PA face swelling 01/24/2024 Travel from Last 3 Months Immunizations Name Administration Dates Next Due DTP 09/24/1999, 6,06/17/1994,05/05,02/17/1994 HIB PRP-T (ActHIB,Hiberix) 12/28/1994,06/18/1994 ,02/17/1994 Hepatitis A (Peds) 11/26/2010,12/05/2008 Hepatitis B (Adult) 08/31/2018 Hepatitis B (Peds) 05/30/2012 Human Papilloma Virus Vaccine 03/26/2010, 010,12/05/2008 Influenza Virus, Unspecified 10/27/2018,12/21/19 17,12/21/2015 Influenza, IIV3 (Age 6-35 mos) 01/21/2011 Influenza, IIV3 (Age >=3 years) 01/21/2011,03/26 Influenza, IIV4 03/04/2020,01/17/2015 MENINGOCOCCAL VACCINE 2 VIAL 2MO-55YO (MENVEO) 05/30/2012 MMR 09/24/1999,03/19/1995 Meningococcal Vaccine (Menactra) 12/05/2008 Oral Polio Vaccine 03/19/1995, 5,05/05/1994,02/17 Td (Age >=7 Years) 04/15/2016 Tdap 11/04/2020,12/24/2005 Varicella Vaccine 11/26/2010,12/05/2008 Family History Medical History Relation Name Comments Unknown Father Cancer-colon Maternal Grandfather d, Heart Disease Maternal Grandmother open h eart surgery Good Health Mother ? cervical canc er Cancer-breast Other 1 aunt Cancer Other 2 aunt Cancer Paternal Grandfather d, lung and bladder cancer Other Paternal Grandmother d, alcoholism, fell and hit head Other Sister 2 tumor on arm Relation Name Status Comments Father Alive no contact Maternal Grandfather Maternal Grandmother Alive Mother Alive Other 1 Other 2 Paternal Grandfather Paternal Grandmother Sister 1 Alive Sister 2 Social History Tobacco Use Types Packs/Day Years Used Date Smoking Tobacco: Former Cigarettes 0.5 17.8 S tarted: 06/17/2006 Smokeless Tobacco: Never Tobacco Cessation:Counseling Given: No Alcohol Use Standard Drinks/Week Comments Yes 0 (1 standard drink = 0.6 oz pur e alcohol) rare PHQ-2 Answer Date Recorded PHQ-2 TOTAL SCORE 2 06/17/2020 Social Connections Answer Date Recorded Do you often feel lonely or isolated from those around you? 0 02/21/2024 Financial Resource Strain Answer Date R ecorded Difficulty of Paying Living Expenses Not on file 02/21/2024 Difficulty of Paying Living Expenses 3 02/21/2024 Food Insecurity Answer Date Recorded Do you worry your food will run out before you are able to buy more? 2 02/21/2024 Transportation Needs Answer Date Record ed Does lack of transportation keep you from medica l appointments? 1 02/21/2024 Does lack of transportation keep you from work, meetings or getting things that you need? 1 02/21/2024 Housing Stability Answer Date Recorded What is your housing situation today? 1 02/21/2024 Utilities Answer Date Recorded Do you have trouble paying f or utilities (for example, heat, electricity, water, phone)? 2 02/21/2024 Comments No Sex and Gender Information Value Date Recorded Sex Assigned at Not on file Legal Sex Female 5:21 AM BOAT DRIVER Gender Identity Not on file Sexual Orientation Not on file Occupation Industry Job Start Date Job End Date student Not on file Not on file Not on file Obstetrics History Para Term AB IAB SAB Ectopic Multiple Livin g Live Births 1 1 0 1 0 0 0 0 0 0 Date Outcome GA Total Labor Labor/2nd/3rd Weight Sex Type Anes PTL Joanne A1 A5 Name Clin 4 29w 2d 1.27 kg (2 lb 12.8 oz) F 9 9 BLAED E,BG Delivery Location:[facility] Last Filed Vital Signs Vital Sign Reading Time Taken Comments Blood Pressure 121/84 02/21/2024 1:50 PM BOAT DRIVER Pulse 80 02/21/2024 1:50 PM BOAT DRIVER Temperature 36.8 C (98.2 F) 12/03/2022 1:23 PM CDT Respiratory Rate 20 12/03/2022 1:23 PM CDT Oxygen Saturation 98% 12/03/2022 1:23 PM CDT Inhaled Oxygen Concentration - - Weight 54.4 kg (120 lb) 02/21/2024 1:50 PM BOAT DRIVER Height 157.5 cm (5' 2) 03/23/2022 11:14 AM BOAT DRIVER Body Mass Index 21.95 03/23/2022 11:14 AM BOAT DRIVER Plan of Treatment Upcoming Encounters Date Type Department Care Team (Late st Contact Info) Description 04/19/2024 2:20 PM BOAT DRIVER Office Visit [facility] [address] [place] [address] Mahsa Abbott PA [address] [place] [address] Health Maintenance Due Date Last Done Comments Depression screening for age 12+ 06/18/2021 06/18/2020, 06/17/2020, 02/14/2020, Additional history exists BMI (ht and wt on same day) for age 18+ 03/23/2023 03/23/2022, 02/14/2021, 02/13/2019, Additional history exists COVID-19 vaccine series ( season) 2023 Influenza for age 9-49 11/07/2023 0, 10/27/2018, 12/20/2016, Additional history exists Pap test for age 21-65 03/23/2027 3, 03/23/2022, 07/12/2018, Additional history exists Tetanus booster 11/04/2030 11/04/2020, 02/0 10/2016, 12/24/2005 Tdap Completed 11/04/2020, 12/24/2005 Hepatitis C screening for age 18-79 Completed 03/23/2022, 05/13/2021, 03/04/2020, Additional history exists HIV for age 15-65 Completed 02/21/2024, , 05/13/2021, Additional history exists Pneumococcal series for age 6-49 Aged Out No longer eligible based on patient's age to complete this topic Procedures Procedure Name Priority Date/Time Associated Diagnosis Comments RESULT (REFLEX ONLY) Routine 02/22/2024 6:45 AM BOAT DRIVER Abdominal pain, generalized Arthralgia, unspecified joint Morning joint stiffness Weight loss Fatigue, unspecified type STOOL PATHOGEN MULTIPLEX PCR PANEL Routine 02/22/2024 6:45 AM BOAT DRIVER Abdominal pain, generalized Arthralgia, unspecified joint Morning joint stiffness Weight loss Fatigue, unspecified type OVA + PARASITE EXAM Routine 02/22/2024 6 :45 AM BOAT DRIVER Abdominal pain, generalized Arthralgia, unspecified joint Morning joint stiffness Weight loss Fatigue, unspecified type CBC WITH AUTO DIFFERENTIAL Routine 02/21/2024 2:40 PM BOAT DRIVER Abdominal pain, generalized Arthralgia, unspecified joint Morning joint stiffness Weight loss Fatigue, unspecified type COMP METABOLIC PANEL Routine 02/21/2024 2:40 PM BOAT DRIVER Abdominal pain, generalized Arthralgia, unspecified joint Morning joint stiffness Weight loss Fatigue, unspecified type ANTINUCLEAR ANTIBODY BY IFA Routine 02/21/2024 2:40 PM BOAT DRIVER Abdominal pain, generalized Arthralgia, unspecified joint Morning joint stiffness Weight loss Fatigue, unspecified type CYCLIC CITRULLINE PEPTIDE Routine 02/21/2024 2:40 PM BOAT DRIVER Abdominal pain, generalized Arthralgia, unspecified joint Morning joint stiffness Weight loss Fatigue, unspecified type LYME SCREEN W/REFLEX Routine 02/21/2024 2:40 PM BOAT DRIVER Abdominal pain, generalized Arthralgia, unspecified joint Morning joint stiffness Weight loss Fatigue, unspecified type RA QUANTITATIVE Routine 02/21/2024 2:40 PM BOAT DRIVER Abdominal pain, generalized Arthralgia, unspecified joint Morning joint stiffness Weight loss Fatigue, unspecified type SEDIMENTATION RATE Routine 02/21/2024 2: 40 PM BOAT DRIVER Abdominal pain, generalized Arthralgia, unspecified joint Morning joint stiffness Weight loss Fatigue, unspecified type C-REACTIVE PROTEIN Routine 02/21/2024 2: 40 PM BOAT DRIVER Abdominal pain, generalized Arthralgia, unspecified joint Morning joint stiffness Weight loss Fatigue, unspecified type TSH Routine 02/21/2024 2:40 PM BOAT DRIVER Abdominal pain, generalized Arthralgia, unspecified joint Morning joint stiffness Weight loss Fatigue, unspecified type FERRITIN Routine 02/21/2024 2:40 PM BOAT DRIVER Abdominal pain, generalized Arthralgia, unspecified joint Morning joint stiffness Weight loss Fatigue, unspecified type IRON PLUS IRON BINDING CAP Routine 02/21/2024 2:40 PM BOAT DRIVER Abdominal pain, generalized Arthralgia, unspecified joint Morning joint stiffness Weight loss Fatigue, unspecified type T4,FREE Routine 02/21/2024 2:40 PM BOAT DRIVER Abdominal pain, generalized Arthralgia, unspecified joint Morning joint stiffness Weight loss Fatigue, unspecified type ANTI HIV 1/2 Routine 02/21/2024 2:40 PM BOAT DRIVER Abdominal pain, generalized Arthralgia, unspecified joint Morning joint stiffness Weight loss Fatigue, unspecified type TREPONEMA PALLIDUM Routine 02/21/2024 2: 36 PM BOAT DRIVER Abdominal pain, generalized Arthralgia, unspecified joint Morning joint stiffness Weight loss Fatigue, unspecified type LC HCV ANTIBODY RFX TO QUANT PCR Routine 03/23/2022 12:03 PM BOAT DRIVER Screen for STD (sexually transmitted disease) HPV HIGH RISK Routine 03/23/2022 11:36 AM BOAT DRIVER Cervical cancer screening Screening for cervical cancer from Last 3 Months or Most Recently Relevant to Health Maintenance Results * RESULT (REFLEX ONLY) (02/22/2024 6:45 AM BOAT DRIVER) Result 1 Comment 03/03/2024 2:07 PM BOAT DRIVER [facility] (CET) Comment: No ova, cysts, or parasites seen. One negative specimen does not rule out the possibility of a parasitic infection. Stool STOOL SPECIMEN / Unknown Non-Blood / Unknown 02/22/2024 6:45 AM BOAT DRIVER 02/22/2024 9:[address] [facility] ESOTERIC TESTING (CET) - 03/03/2024 2:07 PM BOAT DRIVER Performed at: [address] [place] [address] [address], [place] [id number] Aircraft Motor Mechanic: GEETHA Rocha MD, Phone: [phone] us Mahsa MENON LABORATORY Final R esult [facility] ([facility]) [address] [place] [address] * OVA + PARASITE EXAM (02/22/2024 6:45 AM BOAT DRIVER) Ova + Parasite Exam Final report 03/03/2024 2:[address] [facility]ERIC TESTING (CET) Comment: These results were obtained using wet preparation(s) and trichrome stained smear. This test does not include testing for Cryptosporidium parvum, Cyclospora, or Microsporidia. Stool STOOL SPECIMEN / Unknown Non-Blood / Unknown 02/22/2024 6:45 AM BOAT DRIVER 02/22/2024 9:[address] [facility] ESOTERIC TESTING (CET) - 03/03/2024 2:07 PM BOAT DRIVER Performed at: [address] [place] [address] [address], [place], [place] [id number] Aircraft Motor Mechanic: GEETHA Rocha MD, Phone: [phone] Mahsa MENON SEND OUTS Final R esult [facility] ([facility]) [facility] [place] [address], [place] * STOOL PATHOGEN MULTIPLEX PCR PANEL (02/22/2024 6:45 AM BOAT DRIVER) Campylobacter NOT Detected NOT Detected 02/22/2024 10:44 PM BOAT DRIVER [facility] Salmonella NOT Detected NOT Detected 02/22/2024 10:44 PM BOAT DRIVER [facility] Shigella NOT Detected NOT Detected 02/22/2024 10:44 PM BOAT DRIVER [facility] Vibrio NOT Detected NOT Detected 02/22/2024 10:44 PM BOAT DRIVER [facility] Yersinia Enterocolitica NOT Detected NOT Detected 02/22/2024 10:44 PM BOAT DRIVER [facility] Shiga Toxin 1 NOT Detected NOT Detected 02/22/2024 10:44 PM BOAT DRIVER [facility] Shiga Toxin 2 NOT Detected NOT Detected 02/22/2024 10:44 PM BOAT DRIVER [facility] Norovirus NOT Detected NOT Detected 02/22/2024 10:44 PM BOAT DRIVER [facility] Rotavirus NOT Detected NOT Detected 02/22/2024 10:44 PM BOAT DRIVER [facility] Stool STOOL SPECIMEN / Unknown Non-Blood / Unknown 02/22/2024 6:45 AM BOAT DRIVER 02/22/2024 9:35 AM BOAT DRIVER [facility]OR[facility] - 02/22/2024 10:44 PM BOAT DRIVER This test is a Culture Independent Diagnostic Test (CIDT) therefore isolates are not available for susceptibility testing. Antibiotic treatment is often contraindicated and may be detrimental in cases of enteric infections, thus routine susceptibility testing is not recommended. Mahsa MENON MICROBIOLOGY Final R esult [facility] [address] [place] [address], [place] * SEDIMENTATION RATE (02/21/2024 2:40 PM BOAT DRIVER) Pathologist [facility] SED RATE BY MODIFIED WESTERGREN 6 < OR = 20 mm/h [facility] [place] Blood BLOOD SPECIMEN / Unknown 02/21/2024 2:40 PM BOAT DRIVER 02/21/2024 2:41 PM BOAT DRIVER Mahsa MENON HEMATOLOGY Final R esult Performing Organization Address [facility]/ZIP Co de Phone Number [facility] [address] [place] [address], [place] [phone] [employer] [place] [address] [place] [address] * ANTINUCLEAR ANTIBODY BY IFA (02/21/2024 2:40 PM BOAT DRIVER) Pathologist [facility] CHANCE SCREEN, IFA NEGATIVE NEGATIVE [facility] [place] Comment: CHANCE IFA is a first line screen for detecting the presence of up to approximately 150 autoantibodies in various autoimmune diseases. A negative CHANCE IFA result suggests an CHANCE-associated autoimmune disease is not present at this time, but is not definitive. If there is high clinical suspicion for Sjogren's syndrome, testing for anti-SS-A/Ro antibody should be considered. Anti-Yani-1 antibody should be considered for clinically suspected inflammatory myopathies. AC-0: Negative International Consensus on CHANCE Patterns (https://doi.org/10.1515/qmqm-1777-6614) For additional information, please refer to http://education.Polyplus-transfection/faq/HPK791 (This link is being provided for informational/ educational purposes only.) Blood BLOOD SPECIMEN / Unknown 02/21/2024 2:40 PM BOAT DRIVER 02/21/2024 2:41 PM BOAT DRIVER Mahsa MENON CHEMISTRY Final R esult [facility] [address] [facility] [place] [address], [place] [phone] [facility] [address] [facility] [place] [address] * CYCLIC CITRULLINE PEPTIDE (02/21/2024 2:40 PM BOAT DRIVER) [facility] CYCLIC CITRULLINATED PEPTIDE (CCP) AB (IGG) <16 UNITS [facility] Comment: Reference Range Negative: <20 Weak Positive: 20-39 Moderate Positive: 40-59 Strong Positive: >59 Blood BLOOD SPECIMEN / Unknown 02/21/2024 2:40 PM BOAT DRIVER 02/21/2024 2:41 PM BOAT DRIVER us Mahsa MENON SEND OUTS Final R esult Performing Organization Address City/[facility]/ZIP Co de Phone Number [facility] [address] [place] [address], [facility] [address] [place] [address] * TSH (02/21/2024 2:40 PM BOAT DRIVER) [facility] TSH 0.41 mIU/L [facility] Comment: Reference Range > or = 20 Years 0.40-4.50 Ranges First trimester 0.26-2.66 Second trimester 0.55-2.73 Third trimester 0.43-2.91 Blood BLOOD SPECIMEN / Unknown 02/21/2024 2:40 PM BOAT DRIVER 02/21/2024 2:41 PM BOAT DRIVER us Mahsa MENON CHEMISTRY Final R esult [facility] [address] [place] [address], [place] [phone] [facility] [address] [facility] [place] [address] * IRON PLUS IRON BINDING CAP (02/21/2024 2:40 PM BOAT DRIVER) [facility] IRON, TOTAL 77 40 - 190 mcg/dL [facility] IRON BINDING CAPACITY 295 250 - 450 mcg/dL (calc) [facility] % SATURATION 26 16 - 45 % (calc) [facility] Blood BLOOD SPECIMEN / Unknown 02/21/2024 2:40 PM BOAT DRIVER 02/21/2024 2:41 PM BOAT DRIVER Mahsa MENON CHEMISTRY Final R esult Performing Organization Address City/State/[facility] Co de Phone Number [facility] [address] [place] [address], [facility] [address] [place] [address] * LYME SCREEN W/REFLEX (02/21/2024 2:40 PM BOAT DRIVER) [facility] LYME AB, SCREEN < or = 0.90 index [facility], Comment: REFERENCE RANGE: < OR = 0.90 Index Index Interpretation < OR = 0.90 NEGATIVE 0.91 - 1.09 EQUIVOCAL > OR = 1.10 POSITIVE This assay measures Lyme Disease (Borrelia burgdorferi) IgG plus IgM antibodies; it does not distinguish results that are both IgG and IgM positive from results that are either IgG or IgM positive. As recommended by the Centers for Disease Control and Prevention (CDC), all samples with positive or equivocal results in this screening assay will be tested using separate supplemental Lyme IgG and IgM immunoassays. Positive or equivocal screening assay results should not be interpreted as truly positive until verified as such using the supplemental assays. Screening and/or supplemental tests for Lyme disease antibodies may be falsely negative in early stages of Lyme disease, including the period when erythema migrans is apparent. These assays may be falsely positive in patients with other spirochetal diseases (e.g., syphilis) or infectious mononucleosis. Blood BLOOD SPECIMEN / Unknown 02/21/2024 2:40 PM BOAT DRIVER 02/21/2024 2:41 PM BOAT DRIVER Mahsa MENON SEND OUTS Final R esult [facility] [address] [place] [address], [facility], [address] [place] [address] * RA QUANTITATIVE (02/21/2024 2:40 PM BOAT DRIVER) Pathologist [facility] RHEUMATOID FACTOR <10 <14 IU/mL [facility] [place] Blood BLOOD SPECIMEN / Unknown 02/21/2024 2:40 PM BOAT DRIVER 02/21/2024 2:41 PM BOAT DRIVER Mahsa MENON SEND OUTS Final R esult [facility] [address] [place] [address], [facility] [address] [place] [address] * ANTI HIV 1/2 (02/21/2024 2:40 PM BOAT DRIVER) Pathologist [facility] HIV AG/AB, 4TH GEN NON-REACT YA NON-REACT YA [facility] Comment: HIV-1 antigen and HIV-1/HIV-2 antibodies were not detected. There is no laboratory evidence of HIV infection. PLEASE NOTE: This information has been disclosed to you from records whose confidentiality may be protected by state law. If your state requires such protection, then the state law prohibits you from making any further disclosure of the information without the specific written consent of the person to whom it pertains, or as otherwise permitted by law. A general authorization for the release of medical or other information is NOT sufficient for this purpose. For additional information please refer to http://education.PerfectSearch.NativeEnergy/faq/TKK670 (This link is being provided for informational/ educational purposes only.) The performance of this assay has not been clinically validated in patients less than 2 years old. Blood BLOOD SPECIMEN / Unknown 02/21/2024 2:40 PM BOAT DRIVER 02/21/2024 2:41 PM BOAT DRIVER Mahsa MENON SEND OUTS Final R esult Performing Organization Address City/[facility]/ZIP Co de Phone Number Abine [id number] [place] [address], [place] [phone] [employer] [address] [place] [address] * C-REACTIVE PROTEIN (02/21/2024 2:40 PM BOAT DRIVER) [facility] C-REACTIVE PROTEIN <3.0 <8.0 mg/L [employer] Blood BLOOD SPECIMEN / Unknown 02/21/2024 2:40 PM BOAT DRIVER 02/21/2024 2:41 PM BOAT DRIVER Mahsa MENON CHEMISTRY Final R esult Performing Organization Address City/[facility] Co de Phone Number Abine [address] [phone], [employer] [address] [place] [address] * CBC AND DIFFERENTIAL (02/21/2024 2:40 PM BOAT DRIVER) [facility] WHITE BLOOD CELL COUNT 7.0 3.8 - 10.8 Thousand/u L [facility] RED BLOOD CELL COUNT 4.20 3.80 - 5.10 Million/uL [facility] HEMOGLOBIN 13.1 11.7 - 15.5 g/dL [facility] HEMATOCRIT 39.5 35.0 - 45.0 % [facility] MCV 94.0 80.0 - 100.0 fL [facility] MCH 31.2 27.0 - 33.0 pg [facility] MCHC 33.2 32.0 - 36.0 g/dL [facility] Comment: For adults, a slight decrease in the calculated MCHC value (in the range of 30 to 32 g/dL) is most likely not clinically significant; however, it should be interpreted with caution in correlation with other red cell parameters and the patient's clinical condition. RDW 11.8 11.0 - 15.0 % [facility] PLATELET COUNT 245 140 - 400 Thousand/u L [facility] MPV 11.0 7.5 - 12.5 fL [facility] ABSOLUTE NEUTROPHILS 4,109 1,500 - 7,800 cells/uL [facility] ABSOLUTE LYMPHOCYTES 2,373 850 - 3,900 cells/uL [facility] ABSOLUTE MONOCYTES 469 200 - 950 cells/uL [facility] ABSOLUTE EOSINOPHILS 21 15 - 500 cells/uL [facility] ABSOLUTE BASOPHILS 28 0 - 200 cells/uL [facility] NEUTROPHILS 58.7 % [facility] LYMPHOCYTES 33.9 % [facility] MONOCYTES 6.7 % [facility] EOSINOPHILS 0.3 % [facility] BASOPHILS 0.4 % [facility] Blood BLOOD SPECIMEN / Unknown 02/21/2024 2:40 PM BOAT DRIVER 02/21/2024 2:41 PM BOAT DRIVER Mahsa MENON HEMATOLOGY Final R esult Performing Organization Address City/[facility] Co de Phone Number [facility] [employer] [facility] [address] [place] [address], [facility] [address] [place] [address] * T4,FREE (02/21/2024 2:40 PM BOAT DRIVER) [facility] T4, FREE 1.3 0.8 - 1.8 ng/dL [facility] Blood BLOOD SPECIMEN / Unknown 02/21/2024 2:40 PM BOAT DRIVER 02/21/2024 2:41 PM BOAT DRIVER Mahsa MENON CHEMISTRY Final R esult [facility] [address] [place] [address], [facility] [address] [place] [address] * FERRITIN (02/21/2024 2:40 PM BOAT DRIVER) Pathologist [facility] FERRITIN 62 16 - 154 ng/mL [employer] [place] Blood BLOOD SPECIMEN / Unknown 02/21/2024 2:40 PM BOAT DRIVER 02/21/2024 2:41 PM BOAT DRIVER Mahsa MENON CHEMISTRY Final R esult Performing Organization Address [facility] Co de Phone Number Abine [facility] [address] [place] [address], [facility] [address] [place] [address] * COMP METABOLIC PANEL (02/21/2024 2:40 PM BOAT DRIVER) Pathologist [facility] GLUCOSE 79 65 - 99 mg/dL [facility] Comment: Fasting reference interval UREA NITROGEN (BUN) 8 7 - 25 mg/dL [facility] CREATININE 0.76 0.50 - 0.97 mg/dL [facility] EGFR 108 > OR = 60 mL/min/1. 73m2 [facility] BUN/CREATININE RATIO SEE NOTE: 6 - 22 (calc) [facility] Comment: Not Reported: BUN and Creatinine are within reference range. SODIUM 141 135 - 146 mmol/L [facility] POTASSIUM 4.4 3.5 - 5.3 mmol/L [facility] CHLORIDE 108 98 - 110 mmol/L [facility] CARBON DIOXIDE 27 20 - 32 mmol/L [facility] CALCIUM 9.6 8.6 - 10.2 mg/dL [facility] PROTEIN, TOTAL 6.9 6.1 - 8.1 g/dL [facility] ALBUMIN 4.4 3.6 - 5.1 g/dL [facility] GLOBULIN 2.5 1.9 - 3.7 g/dL (calc) [facility] ALBUMIN/GLOBULIN RATIO 1.8 1.0 - 2.5 (calc) [facility] BILIRUBIN, TOTAL 0.9 0.2 - 1.2 mg/dL [facility] ALKALINE PHOSPHATASE 58 31 - 125 U/L [facility] AST 15 10 - 30 U/L [facility] ALT 11 6 - 29 U/L [facility] Blood BLOOD SPECIMEN / Unknown 02/21/2024 2:40 PM BOAT DRIVER 02/21/2024 2:41 PM BOAT DRIVER Mahsa MENON CHEMISTRY Final R esult Performing Organization Address [facility]/ZIP Co de Phone Number [facility] [id number] [place] [address], [facility] [address] * TREPONEMA PALLIDUM (02/21/2024 2:36 PM BOAT DRIVER) Pathologist [facility] TREPONEMA PALLIDUM Non-Reacti ve Non-Reacti ve 02/21/2024 11:07 PM BOAT DRIVER [facility] Blood BLOOD SPECIMEN / Unknown [facility] / Unknown 02/21/2024 2:36 PM BOAT DRIVER 02/21/2024 2:36 PM BOAT DRIVER Mahsa MENON SEND OUTS Final R esult [facility] [address] [place] [address], [place] * LC HCV ANTIBODY RFX TO QUANT PCR (03/23/2022 12:03 PM BOAT DRIVER) Pathologist [facility] HCV Ab <0.1 0.0 - 0.9 s/co ratio 03/25/2022 9:06 PM BOAT DRIVER [facility] ([facility]) Blood BLOOD SPECIMEN / Unknown Venipuncture / Unknown 03/23/2022 12:03 PM BOAT DRIVER 03/23/2022 12:05 PM BOAT DRIVER Narrative [facility] ([facility]) - 03/25/2022 9:06 PM BOAT DRIVER Performed at: [address] [place] [id number] Aircraft Motor Mechanic: Pedro Fields MD, Phone: [phone] Mahsa MENON LABORATORY Final R esult Performing Organization Address City/[facility]/ZIP Co de Phone Number [facility] ([facility]) [address] [place] [address], * HPV HIGH RISK (03/23/2022 11:36 AM BOAT DRIVER) [facility] TYPE 16 Negative Negative 03/26/2022 2:05 PM BOAT DRIVER [facility] TYPE 18 Negative Negative 03/26/2022 2:05 PM BOAT DRIVER [facility] OTHER HIGH RISK TYPES Negative Negative 03/26/2022 2:05 PM BOAT DRIVER [facility] Other (Cervical) Non-Blood / Unknown 03/23/2022 11:36 AM BOAT DRIVER 03/24/2022 9:57 AM BOAT DRIVER Narrative [facility] - 03/26/2022 2:05 PM BOAT DRIVER HPV types 16, 18, 31, 33, 35, 39, 45, 51, 52, 56, 58, 59, 66 and 68 DNA were undetectable or below the pre-set threshold. Methodology: Jackie Porsha 4800 HPV Test Mahsa MENON MICROBIOLOGY Final R esult [facility] [address] [place] [address], [place] from Last 3 Months or Most Recently Relevant to Health Maintenance Insurance [facility] [employer] [facility] Member Subscriber Plan / Payer (Ef fective 2017-Present) Name:Jayde Bee Relation to Subscriber:Employee Name:[employer] Date of :2002 (Home) Address: [address] [place] [address] Payer ID:Not on file Group ID:Not on file Type:Not on file Address: [address] [facility] [address] [place] [address] [employer] Member Subscriber Plan / Payer (Ef fective 2017-Present) Name:Jayde Bee Relation to Subscriber:Employee Name:[employer] Date of :2002 (Home) Address: [address] [place] [address] Payer ID:Not on file Group ID:Not on file Type:Not on file Address: [address] [facility] [address] [place] [phone] [place] [id number] [facility] [employer] [address] [place] [id number] * Guarantor: [facility] [employer] Account Type Relation to Patient Date of Phone Billing Address [facility] Health/[facility] Other FAMILY [employer] - [place] [address] [place] [address] [address] [place] [id number] Advance Directives * Full Code (Latest Code Status on File) Date Activated Date Inactivated Comments 09/24/2013 3:47 PM 09/25/2013 12:39 AM * Full Code Date Activated Date Inactivated Comments 09/11/2013 6:31 PM 09/24/2013 3:47 PM * Full Code Date Activated Date Inactivated Comments 12/13/2012 2:17 AM 12/15/2012 9:12 PM Care Teams Staffing Rn Relationship Specialty Start Date End Date Mah[place] [address] [address] PCP - General Family Practice 03/23/12
[2024-04-16 14:58] VITALS: BP 125/77; PULSE 83; RESP 16; TEMP 36.9; O2SAT 100
--- NOTE | 2024-04-16 15:24 | ED.GENADULT ---
HPI - General Adult General Date Seen: 04/16/24 Chief complaint: Unspecified Complaint, Adult Stated complaint: possible STI Time Seen by Provider: 04/16/24 14:52 History of Present Illness HPI narrative: 28 yo F presenting to the ER today with concern for rectal discharge and rectal odor, associated with abdominal discomfort and burning. The symptoms have been ongoing for the past 18 months or 2 years or so. She says that they 1st started after she had receptive anal intercourse with a man. She does not know if that person had an STI or not. Since then she has had multiple checkups with her doctor without any clear explanation for her abdominal pain. However, she notes, that she has never been checked with a rectal swab for STDs. She says that sometimes the or odor from rectum smells like bad feces and sometimes it smells like fish. She has had some whitish rectal discharge. She also notes that from time to time she feels like her ? rectum is falling out?. She describes feeling a sensation of a foreign body there. She says she thinks she has hemorrhoids. She has never been formally diagnosed with hemorrhoids or had any surgery, . Urination has been normal. she is not having any vaginal problems. She says she has had checkup through her doctor and had blood work that showed normal blood counts, normal workup for autoimmune diseases , negative Lyme test. She has never been seen by GI. Her never had a colonoscopy. No for previous diagnosis of Crohn's or ulcerative colitis. Seen in the ER for abdominal pain 03/03/2023 . Presentation for possible pyelonephritis. Also had recent unprotected sexual activity so labs were sent for hepatitis, chlamydia, gonorrhea and, HIV. White count was 3.9, hemoglobin 12.6, platelet count 144. Sodium 135, potassium 3.7, chloride 104, bicarb 26, BUN 11, cotton and 0.9, glucose 82, bilirubin 1.9, AST 19, ALT 13, alk phos 46. negative. This is UA negative CRP 1.7. Wet prep was negative for yeast, trich and clue cells. RPR was nonreactive. Chlamydia negative. COVID negative. Hepatitis a, B, her see labs were negative. HIV 1 and 2 and P 24 were negative. Influenza negative. RSV negative. Gonorrhea negative. In review of her records through [facility] looks like she was seen in the primary care office on 02/21/2024. At that point she had abdominal concerns, anal itching, other concerns. Related Data Home Medications ?Medication ?Instructions ?Recorded ?Confirmed gabapentin 300 mg capsule 300 mg PO 3XD 03/03/23 03/03/23 meloxicam 15 mg tablet 15 mg PO DAILY 03/03/23 03/03/23 ibuprofen 04/16/24 Previous Rx's ?Medication ?Instructions ?Recorded tramadol 50 mg tablet 50 mg PO Q6H PRN pain #12 tabs 07/19/22 amoxicillin 875 mg-potassium 1 tab PO BID #7 tabs 03/03/23 clavulanate 125 mg tablet doxycycline monohydrate 100 mg 100 mg PO BID #14 tabs 03/03/23 tablet cephalexin 500 mg capsule 500 mg PO TID #21 caps 02/01/24 hydroxyzine HCl 25 mg tablet 25 mg PO TID PRN #14 tabs 02/01/24 prednisone 20 mg tablet 60 mg (3 x 20 mg) PO DAILY #15 tabs 02/01/24 Allergies Allergy/AdvReac Type Severity Reaction Status Date / Time No Known Drug Allergies Allergy Verified 04/16/24 15:05 [facility] Social History Smoking Status: Current every day smoker Do you use any of these nicotine containing products: E-Cigarettes and Vaping Products Second hand tobacco smoke exposure: No How often do you have a drink containing alcohol: never AUDIT-C Alcohol total score: 0 Non-prescribed substance use: marijuana (any form) service: No Exam Narrative: Exam Narrative: Constitutional: Appears well-developed and well-nourished. Alert. Conversant. Non toxic. HENT: Head: Atraumatic. Nose: Nose normal. Mouth/Throat: Oral mucosa is clear and moist. no trismus. Pharynx normal. Tonsils symmetric. No tonsillar enlargement, erythema, or exudate. Eyes: Conjunctivae normal. EOM normal. Pupils equal, round, and reactive to light. No scleral icterus. Neck: Normal range of motion. Neck supple. No tracheal deviation present. Cardiovascular: Normal rate, regular rhythm. No gallop. No friction rub. No murmur heard. Symmetric radial artery pulses Pulmonary/Chest: Effort normal. No stridor. No respiratory distress. No wheezes. No rales. No rhonchi . No tenderness. Abdominal: Soft. Bowel sounds normal. No distension. No mass. No tenderness. No rebound. No guarding. Rectal: Performed with female hospice art therapist. Normal perineum and gluteal cleft. She does have 1 small external skin tag but no other signs of thrombosed hemorrhoids. There was no bleeding. No evidence for any perirectal inflammation to suggest perirectal abscess, pilonidal cyst, fistula. Because of anticipated discomfort we were not able to perform digital rectal exam. Patient did self rectal swab for STIs. Musculoskeletal: RUE: Normal range of motion. No tenderness. No deformity LUE: Normal range of motion. No tenderness. No deformity RLE: Normal range of motion. No edema. No tenderness. No deformity LLE: Normal range of motion. No edema. No tenderness. No deformity Neurological: Alert and oriented to person, place, and time. Normal strength. CN II-VII intact. No sensory deficit. GCS eye subscore is 4. GCS verbal subscore is 5. GCS motor subscore is 6. Normal coordination Skin: Skin is warm and dry. No rash noted. No pallor. Normal capillary refill. Psychiatric: Normal mood. Normal affect. Const: Vital Signs, click to edit/add: Vital Signs - 24 hr 04/16/24 14:58 04/16/24 16:33 Temperature 98.4 F Pulse Rate [Left P ulse Oximeter] 83 Respiratory Rate 16 Respiratory Rate [ Rectum] 18 Blood Pressure [Ri ght Upper Arm] 125/77 Pulse Oximetry 100 Oxygen Delivery Me thod Room Air Course Vital Signs Vital signs: Initial Vital Signs Temperature 98.4 F 04/16/24 14:58 Temperature Source Temporal Artery Scan 04/16/24 14:58 Pulse Rate 83 04/16/24 14:58 Respiratory Rate 16 04/16/24 14:58 Blood Pressure 125/77 04/16/24 14:58 Blood Pressure Mean 93 04/16/24 14:58 Blood Pressure Position Sitting 04/16/24 14:58 Pulse Oximetry 100 04/16/24 14:58 Oxygen Delivery Method Room Air 04/16/24 14:58 Vital Signs Temperature 98.4 F 04/16/24 14:58 Pulse Rate 83 04/16/24 14:58 Respiratory Rate 16 04/16/24 14:58 Blood Pressure 125/77 04/16/24 14:58 Pulse Oximetry 100 04/16/24 14:58 Oxygen Delivery Method Room Air 04/16/24 14:58 Temperature 98.4 F 04/16/24 14:58 Pulse Rate 83 04/16/24 14:58 Respiratory Rate 18 04/16/24 16:33 Blood Pressure 125/77 04/16/24 14:58 Pulse Oximetry 100 04/16/24 14:58 Oxygen Delivery Method Room Air 04/16/24 14:58 Medical Decision Making MDM Narrative Medical decision making narrative: 28-year-old female presenting to the ER today with concern for abdominal pain, rectal discharge, rectal irritation, ongoing for the past year or 2 but more bothersome lately. She is concerned that she may have a sexually transmitted infection and says she has never been checked with rectal swabs. PCR based swabs for gonorrhea and chlamydia are negative. Also swab is negative for Trichomonas. At this point no clear evidence for STI causing her chronic rectal pain. Exam does not show any evidence for perirectal abscess, pilonidal abscess, anal fistula, or thrombosed external hemorrhoid. Laboratory workup was otherwise reassuring. Abdominal exam is nontender. This point I do not think she needs CT imaging link to look for surgical emergency. However I do think she needs further workup. Would recommend outpatient follow-up PCP to arrange outpatient colonoscopy. She also reports that she has intermittent sensation of a foreign body at the rectum. Consider possible internal hemorrhoid or possible intermittent rectal prolapse. Encouraged to return to the ER if she has recurrence of that foreign body sensation for repeat evaluation. Patient updated by phone the results of her swabs. She verbalizes understanding and her intention to follow up for further testing Lab Data Labs: Lab Results 04/16/24 04/16/24 Range/Units 16:10 16:21 WBC 6.83 (4.50-11.00) K/uL RBC 4.01 (4.00-5.20) m/uL Hgb 12.4 (12.0-16.0) gm/dL Hct 37.4 (33.0-51.0) % MCV 93 (80-100) fL MCH 31 (26-34) pg MCHC 33 (32-36) gm/dL RDW Coeff of Kasey 12.4 (11.5-15.5) % Plt Count 195 (140-440) K/uL Neut % (Auto) 68.0 (42.0-72.0) % Lymph % (Auto) 26.4 (20-44) % [place] % (Auto) 5.1 (0.0-11.0) % Eos % (Auto) 0.1 (0.0-7.0) % Baso % (Auto) 0.3 (0.0-3.0) % Neut # (Auto) 4.64 (1.7-7.0) K/uL Lymph # (Auto) 1.80 (0.90-2.90) K/uL [place] # (Auto) 0.30 (0.00-0.90) K/UL Eos # (Auto) 0.01 (0.00-0.50) K/uL Baso # (Auto) 0.02 (0.00-0.30) K/uL Abs Immat Gran (auto) 0.01 (0.00-0.30) K/uL Imm/Tot Granulo (auto) 0.1 % Urine Color Yellow (Yellow) Urine Appearance Clear (Clear) Urine pH 6.0 (5.0-8.5) Ur Specific [place] <= 1.005 (1.000-1.030) Urine Protein Negative (Negative) Urine Glucose (UA) Negative (Negative) Urine Ketones Negative (Negative) Urine Blood Trace-intact A (Negative) Urine Nitrite Negative (Negative) Urine Bilirubin Negative (Negative) Urine Urobilinogen 0.2 (0.2-1.0) Ur Leukocyte Esterase Negative (Negative) Urine RBC 0-2 (0-2) Urine WBC 0-2 (0-5) Ur Squamous Epith Cells None (None-Few) Urine Bacteria None (None) Urine HCG, Qual Negative (Negative) Vaginal Bacterial Vaginosis Negative (Negative) Vaginal Myrna species NOT DETECTED (No Detected) Vag C. glabrata/krusei NOT DETECTED (No Detected) Vag T. vaginalis NOT DETECTED (No Detected) C.trachomatis Ampl DNA NOT DETECTED (No Detected) N.gonorrhoeae Ampl DNA NOT DETECTED (No Detected) Discharge Plan Discharge Clinical Impression: Anal or rectal pain Patient Disposition: Home, Self-Care Condition: Stable Instructions: Rectal Pain (ED) Additional Instructions: As we discussed, the swabs have not resulted yet. We will contact you by phone if they come back positive Please follow-up with your regular doctor for recheck within the next 1-3 days. Talk to your doctor about your ongoing symptoms. Ask your doctor to help arrange an outpatient colonoscopy for further workup. If you have worsening symptoms, please come back to the ER right away to be rechecked. Prescriptions: No Action tramadol 50 mg tablet 50 mg PO Q6H PRN (Reason: pain) Qty: 12 0RF meloxicam 15 mg tablet 15 mg PO DAILY gabapentin 300 mg capsule 300 mg PO 3XD doxycycline monohydrate 100 mg tablet 100 mg PO BID Qty: 14 0RF amoxicillin-pot clavulanate 875-125 mg tablet 1 tab PO BID Qty: 7 0RF cephalexin 500 mg capsule 500 mg PO TID Qty: 21 0RF hydroxyzine HCl 25 mg tablet 25 mg PO TID PRNQty: 14 0RF prednisone 20 mg tablet 60 mg PO DAILY Qty: 15 0RF ibuprofen Follow Up/Referrals: Mahsa Abbott PA-C [Primary Care Provider] - Stand Alone Forms: [facility] Info Instructions
--- OUTSIDE RECORDS SUMMARY | 2024-04-16 16:03 | XMS_ITS | Clinical Summary ---
Author Organization [facility] Address [place], [place] [address] Care Team Providers Care Supervisor Wool Shearing Name Role Phone Mahsa Abbott Primary Care [...] overdose, initial encounter,Opioid abuse (HC) Inhale 1 Sycamore into affected nostril(s) each time if needed for Patient Diff To Arouse or Resp Rate < 8 / min. Additional doses may be given every 2 to 3 minutes until emergency medical assistance arrives. 2 Each 01/21/2022 3:41 PM UNIVERSAL WINDING MACHINE OPERATOR 2 Active LORazepam (ATIVAN) 0.5 mg tabIndications:Anx [...] Sprays into affected nostril(s) three times daily. Sycamore dose in each nostril. 30 mL 3 [...] within the uterus. Yolk sac is identified. [place]-rump length measures 1.35 cm consistent with a [...] Department Care Team Description 02/22/2024 7:00 AM UNIVERSAL WINDING MACHINE OPERATOR Orders Only [facility] [address] [place] [address] Lab, [place] Lab 02/21/2024 1:40 PM UNIVERSAL WINDING MACHINE OPERATOR Office Visit [facility] [address] [place] [address] Mahsa Abbott PA Gi Problem (Stomach burning, a lot nausea, not eating or drinking much, anal itching, on and off L sided back pain. Treated her self for parasites and wants to discuss. Eye issues, feels like something is moving inside her eyes.) 02/21/2024 Travel 02/01/2024 Nurse Triage [facility] [address] [place] [address] Mahsa Abbott PA face swelling 01/24/2024 Travel [...] on file Legal Sex Female 5:21 AM UNIVERSAL WINDING MACHINE OPERATOR Gender Identity Not on file Sexual Orientation [...] oz) F 9 9 BLAED E,BG Delivery Location:[facility] Last Filed Vital Signs Vital Sign Reading Time Taken Comments Blood Pressure 121/84 02/21/2024 1:50 PM UNIVERSAL WINDING MACHINE OPERATOR Pulse 80 02/21/2024 1:50 PM UNIVERSAL WINDING MACHINE OPERATOR Temperature 36.8 C (98.2 F) 12/03/2022 1:23 PM CDT Respiratory Rate 20 12/03/2022 1:23 PM CDT Oxygen Saturation 98% 12/03/2022 1:23 PM CDT Inhaled Oxygen Concentration - - Weight 54.4 kg (120 lb) 02/21/2024 1:50 PM UNIVERSAL WINDING MACHINE OPERATOR Height 157.5 cm (5' 2) 03/23/2022 11:14 AM UNIVERSAL WINDING MACHINE OPERATOR Body Mass Index 21.95 03/23/2022 11:14 AM UNIVERSAL WINDING MACHINE OPERATOR Plan of Treatment Upcoming Encounters Date Type Department Care Team (Late st Contact Info) Description 04/19/2024 2:20 PM UNIVERSAL WINDING MACHINE OPERATOR Office Visit [facility] [address] [place] [address] Mahsa Abbott PA [address] [place] [address] Health Maintenance Due Date Last Done Comments [...] RESULT (REFLEX ONLY) Routine 02/22/2024 6:45 AM UNIVERSAL WINDING MACHINE OPERATOR Abdominal pain, generalized Arthralgia, unspecified joint Morning joint stiffness Weight loss Fatigue, unspecified type STOOL PATHOGEN MULTIPLEX PCR PANEL Routine 02/22/2024 6:45 AM UNIVERSAL WINDING MACHINE OPERATOR Abdominal pain, generalized Arthralgia, unspecified joint Morning joint stiffness Weight loss Fatigue, unspecified type OVA + PARASITE EXAM Routine 02/22/2024 6 :45 AM UNIVERSAL WINDING MACHINE OPERATOR Abdominal pain, generalized Arthralgia, unspecified joint Morning joint stiffness Weight loss Fatigue, unspecified type CBC WITH AUTO DIFFERENTIAL Routine 02/21/2024 2:40 PM UNIVERSAL WINDING MACHINE OPERATOR Abdominal pain, generalized Arthralgia, unspecified joint Morning joint stiffness Weight loss Fatigue, unspecified type COMP METABOLIC PANEL Routine 02/21/2024 2:40 PM UNIVERSAL WINDING MACHINE OPERATOR Abdominal pain, generalized Arthralgia, unspecified joint Morning joint stiffness Weight loss Fatigue, unspecified type ANTINUCLEAR ANTIBODY BY IFA Routine 02/21/2024 2:40 PM UNIVERSAL WINDING MACHINE OPERATOR Abdominal pain, generalized Arthralgia, unspecified joint Morning joint stiffness Weight loss Fatigue, unspecified type CYCLIC CITRULLINE PEPTIDE Routine 02/21/2024 2:40 PM UNIVERSAL WINDING MACHINE OPERATOR Abdominal pain, generalized Arthralgia, unspecified joint Morning joint stiffness Weight loss Fatigue, unspecified type LYME SCREEN W/REFLEX Routine 02/21/2024 2:40 PM UNIVERSAL WINDING MACHINE OPERATOR Abdominal pain, generalized Arthralgia, unspecified joint Morning joint stiffness Weight loss Fatigue, unspecified type RA QUANTITATIVE Routine 02/21/2024 2:40 PM UNIVERSAL WINDING MACHINE OPERATOR Abdominal pain, generalized Arthralgia, unspecified joint Morning joint stiffness Weight loss Fatigue, unspecified type SEDIMENTATION RATE Routine 02/21/2024 2: 40 PM UNIVERSAL WINDING MACHINE OPERATOR Abdominal pain, generalized Arthralgia, unspecified joint Morning joint stiffness Weight loss Fatigue, unspecified type C-REACTIVE PROTEIN Routine 02/21/2024 2: 40 PM UNIVERSAL WINDING MACHINE OPERATOR Abdominal pain, generalized Arthralgia, unspecified joint Morning joint stiffness Weight loss Fatigue, unspecified type TSH Routine 02/21/2024 2:40 PM UNIVERSAL WINDING MACHINE OPERATOR Abdominal pain, generalized Arthralgia, unspecified joint Morning joint stiffness Weight loss Fatigue, unspecified type FERRITIN Routine 02/21/2024 2:40 PM UNIVERSAL WINDING MACHINE OPERATOR Abdominal pain, generalized Arthralgia, unspecified joint Morning joint stiffness Weight loss Fatigue, unspecified type IRON PLUS IRON BINDING CAP Routine 02/21/2024 2:40 PM UNIVERSAL WINDING MACHINE OPERATOR Abdominal pain, generalized Arthralgia, unspecified joint Morning joint stiffness Weight loss Fatigue, unspecified type T4,FREE Routine 02/21/2024 2:40 PM UNIVERSAL WINDING MACHINE OPERATOR Abdominal pain, generalized Arthralgia, unspecified joint Morning joint stiffness Weight loss Fatigue, unspecified type ANTI HIV 1/2 Routine 02/21/2024 2:40 PM UNIVERSAL WINDING MACHINE OPERATOR Abdominal pain, generalized Arthralgia, unspecified joint Morning joint stiffness Weight loss Fatigue, unspecified type TREPONEMA PALLIDUM Routine 02/21/2024 2: 36 PM UNIVERSAL WINDING MACHINE OPERATOR Abdominal pain, generalized Arthralgia, unspecified joint Morning joint stiffness Weight loss Fatigue, unspecified type LC HCV ANTIBODY RFX TO QUANT PCR Routine 03/23/2022 12:03 PM UNIVERSAL WINDING MACHINE OPERATOR Screen for STD (sexually transmitted disease) HPV HIGH RISK Routine 03/23/2022 11:36 AM UNIVERSAL WINDING MACHINE OPERATOR Cervical cancer screening Screening for cervical cancer from Last 3 Months or Most Recently Relevant to Health Maintenance Results * RESULT (REFLEX ONLY) (02/22/2024 6:45 AM UNIVERSAL WINDING MACHINE OPERATOR) Result 1 Comment 03/03/2024 2:07 PM UNIVERSAL WINDING MACHINE OPERATOR [facility] ESOTERIC TESTING (CET) Comment: No ova, cysts, or parasites seen. One negative specimen does not rule out the possibility of a parasitic infection. Stool STOOL SPECIMEN / Unknown Non-Blood / Unknown 02/22/2024 6:45 AM UNIVERSAL WINDING MACHINE OPERATOR 02/22/2024 9:34 AM UNIVERSAL WINDING MACHINE OPERATOR [facility] ESOTERIC TESTING (CET) - 03/03/2024 2:07 PM UNIVERSAL WINDING MACHINE OPERATOR Performed at: [address] [place] [address] [address], [place] [id number] Certified Ophthalmic Technician: GEETHA Rocha MD, Phone: [phone] us Mahsa MENON LABORATORY Final R esult [facility] ESOTERIC TESTING ([facility]) [address] [place] [address] * OVA + PARASITE EXAM (02/22/2024 6:45 AM UNIVERSAL WINDING MACHINE OPERATOR) Ova + Parasite Exam Final report 03/03/2024 2:[address] [facility] ESOTERIC TESTING (CET) Comment: These results were obtained using wet preparation(s) and trichrome stained smear. This test does not include testing for Cryptosporidium parvum, Cyclospora, or Microsporidia. Stool STOOL SPECIMEN / Unknown Non-Blood / Unknown 02/22/2024 6:45 AM UNIVERSAL WINDING MACHINE OPERATOR 02/22/2024 9:34 AM UNIVERSAL WINDING MACHINE OPERATOR [facility] ESOTERIC TESTING (CET) - 03/03/2024 2:07 PM UNIVERSAL WINDING MACHINE OPERATOR Performed at: [address] [place] [address] [address], [place], [place] [id number] Certified Ophthalmic Technician: GEETHA Rocha MD, Phone: [phone] Mahsa MENON SEND OUTS Final R esult [facility] ([facility]) [facility] [place] [address], [place] * STOOL PATHOGEN MULTIPLEX PCR PANEL (02/22/2024 6:45 AM UNIVERSAL WINDING MACHINE OPERATOR) Campylobacter NOT Detected NOT Detected 02/22/2024 10:44 PM UNIVERSAL WINDING MACHINE OPERATOR [facility] Salmonella NOT Detected NOT Detected 02/22/2024 10:44 PM UNIVERSAL WINDING MACHINE OPERATOR [facility] Shigella NOT Detected NOT Detected 02/22/2024 10:44 PM UNIVERSAL WINDING MACHINE OPERATOR [facility] Vibrio NOT Detected NOT Detected 02/22/2024 10:44 PM UNIVERSAL WINDING MACHINE OPERATOR [facility] Yersinia Enterocolitica NOT Detected NOT Detected 02/22/2024 10:44 PM UNIVERSAL WINDING MACHINE OPERATOR [facility] Shiga Toxin 1 NOT Detected NOT Detected 02/22/2024 10:44 PM UNIVERSAL WINDING MACHINE OPERATOR [facility] Shiga Toxin 2 NOT Detected NOT Detected 02/22/2024 10:44 PM UNIVERSAL WINDING MACHINE OPERATOR [facility] Norovirus NOT Detected NOT Detected 02/22/2024 10:44 PM UNIVERSAL WINDING MACHINE OPERATOR [facility] Rotavirus NOT Detected NOT Detected 02/22/2024 10:44 PM UNIVERSAL WINDING MACHINE OPERATOR [facility] Stool STOOL SPECIMEN / Unknown Non-Blood / Unknown 02/22/2024 6:45 AM UNIVERSAL WINDING MACHINE OPERATOR 02/22/2024 9:35 AM UNIVERSAL WINDING MACHINE OPERATOR [facility] LABORATORY - 02/22/2024 10:44 PM UNIVERSAL WINDING MACHINE OPERATOR This test is a Culture Independent Diagnostic Test (CIDT) therefore isolates are not available for susceptibility testing. Antibiotic treatment is often contraindicated and may be detrimental in cases of enteric infections, thus routine susceptibility testing is not recommended. Mahsa MENON MICROBIOLOGY Final R esult [facility] [address] [place] [address], [place] * SEDIMENTATION RATE (02/21/2024 2:40 PM UNIVERSAL WINDING MACHINE OPERATOR) Pathologist [facility] SED RATE BY MODIFIED WESTERGREN 6 < OR = 20 mm/h [facility] gil [place] Blood BLOOD SPECIMEN / Unknown 02/21/2024 2:40 PM UNIVERSAL WINDING MACHINE OPERATOR 02/21/2024 2:41 PM UNIVERSAL WINDING MACHINE OPERATOR Mahsa MENON HEMATOLOGY Final R esult Performing Organization Address [facility]/ZIP Co de Phone Number [employer] [facility] [address] [place] [address], [place] [phone] [employer] SoftwareArnol [place] [address] [place] [address] * ANTINUCLEAR ANTIBODY BY IFA (02/21/2024 2:40 PM UNIVERSAL WINDING MACHINE OPERATOR) Pathologist [facility] CHANCE SCREEN, IFA NEGATIVE NEGATIVE Ques [employer] Arnol [place] Comment: CHANCE IFA is a [...] AC-0: Negative International Consensus on CHANCE Patterns (https://doi.org/10.1515/pzic-4620-5700) For additional information, please refer to http://education.[employer]/faq/WXW483 (This link is being provided for informational/ educational purposes only.) Blood BLOOD SPECIMEN / Unknown 02/21/2024 2:40 PM UNIVERSAL WINDING MACHINE OPERATOR 02/21/2024 2:41 PM UNIVERSAL WINDING MACHINE OPERATOR Mahsa MENON CHEMISTRY Final R esult [employer] [facility] [address] [facility] [address], [place] [phone] [facility] [address] [facility] [address] * CYCLIC CITRULLINE PEPTIDE (02/21/2024 2:40 PM UNIVERSAL WINDING MACHINE OPERATOR) [facility] CYCLIC CITRULLINATED PEPTIDE (CCP) AB (IGG) <16 UNITS [facility] [place] Comment: Reference Range Negative: <20 Weak Positive: 20-39 Moderate Positive: 40-59 Strong Positive: >59 Blood BLOOD SPECIMEN / Unknown 02/21/2024 2:40 PM UNIVERSAL WINDING MACHINE OPERATOR 02/21/2024 2:41 PM UNIVERSAL WINDING MACHINE OPERATOR us Mahsa MENON SEND OUTS Final R esult Performing Organization Address City/[facility]/ZIP Co de Phone Number [employer] [facility] [address] [place] [address], [facility] [address] [place] [address] * TSH (02/21/2024 2:40 PM UNIVERSAL WINDING MACHINE OPERATOR) [facility] TSH 0.41 mIU/L [facility] Comment: Reference Range > or = 20 Years 0.40-4.50 Ranges First trimester 0.26-2.66 Second trimester 0.55-2.73 Third trimester 0.43-2.91 Blood BLOOD SPECIMEN / Unknown 02/21/2024 2:40 PM UNIVERSAL WINDING MACHINE OPERATOR 02/21/2024 2:41 PM UNIVERSAL WINDING MACHINE OPERATOR us Mahsa MENON CHEMISTRY Final R esult [employer] [facility] [address] [facility] [address], [place] [phone] [facility] [address] [facility] [place] [address] * IRON PLUS IRON BINDING CAP (02/21/2024 2:40 PM UNIVERSAL WINDING MACHINE OPERATOR) [facility] IRON, TOTAL 77 40 - 190 mcg/dL [facility] IRON BINDING CAPACITY 295 250 - 450 mcg/dL (calc) [facility] % SATURATION 26 16 - 45 % (calc) [facility] [place] Blood BLOOD SPECIMEN / Unknown 02/21/2024 2:40 PM UNIVERSAL WINDING MACHINE OPERATOR 02/21/2024 2:41 PM UNIVERSAL WINDING MACHINE OPERATOR Mahsa MENON CHEMISTRY Final R esult Performing Organization Address City/State/[facility] Co de Phone Number [employer] [facility] [address] [place] [address], [facility] [address] [place] [address] * LYME SCREEN W/REFLEX (02/21/2024 2:40 PM UNIVERSAL WINDING MACHINE OPERATOR) [facility] LYME AB, SCREEN < or = 0.90 index [facility] bibi [facility], Comment: REFERENCE RANGE: < OR = 0.90 [...] BLOOD SPECIMEN / Unknown 02/21/2024 2:40 PM UNIVERSAL WINDING MACHINE OPERATOR 02/21/2024 2:41 PM UNIVERSAL WINDING MACHINE OPERATOR Mahsa MENON SEND OUTS Final R esult [facility] [address] [place] [address], [facility], [address] [place] [address] * RA QUANTITATIVE (02/21/2024 2:40 PM UNIVERSAL WINDING MACHINE OPERATOR) Pathologist [facility] RHEUMATOID FACTOR <10 <14 IU/mL [facility] gil [place] Blood BLOOD SPECIMEN / Unknown 02/21/2024 2:40 PM UNIVERSAL WINDING MACHINE OPERATOR 02/21/2024 2:41 PM UNIVERSAL WINDING MACHINE OPERATOR Mahsa MENON SEND OUTS Final R esult [employer] [facility] [address] [place] [address], [facility] [address] [place] [address] * ANTI HIV 1/2 (02/21/2024 2:40 PM UNIVERSAL WINDING MACHINE OPERATOR) Pathologist [facility] HIV AG/AB, 4TH GEN NON-REACT YA NON-REACT YA [facility] Comment: HIV-1 antigen and HIV-1/HIV-2 antibodies were [...] purpose. For additional information please refer to http://education.[employer]ET Technologies.51credit.com/faq/HQD590 (This link is being provided for informational/ educational purposes only.) The performance of this assay has not been clinically validated in patients less than 2 years old. Blood BLOOD SPECIMEN / Unknown 02/21/2024 2:40 PM UNIVERSAL WINDING MACHINE OPERATOR 02/21/2024 2:41 PM UNIVERSAL WINDING MACHINE OPERATOR Mahsa MENON SEND OUTS Final R esult Performing Organization Address City/[facility]/ZIP Co de Phone Number [employer] [place] [address] [place] [address], [place] [phone] [facility] [address] [place] [address] * C-REACTIVE PROTEIN (02/21/2024 2:40 PM UNIVERSAL WINDING MACHINE OPERATOR) [facility] C-REACTIVE PROTEIN <3.0 <8.0 mg/L [facility]il [place] Blood BLOOD SPECIMEN / Unknown 02/21/2024 2:40 PM UNIVERSAL WINDING MACHINE OPERATOR 02/21/2024 2:41 PM UNIVERSAL WINDING MACHINE OPERATOR Mahsa MENON CHEMISTRY Final R esult Performing Organization Address City/[facility] Co de Phone Number [employer] [address] [address], [facility] [address] [place] [address] * CBC AND DIFFERENTIAL (02/21/2024 2:40 PM UNIVERSAL WINDING MACHINE OPERATOR) [facility] WHITE BLOOD CELL COUNT 7.0 3.8 - [...] BLOOD SPECIMEN / Unknown 02/21/2024 2:40 PM UNIVERSAL WINDING MACHINE OPERATOR 02/21/2024 2:41 PM UNIVERSAL WINDING MACHINE OPERATOR Mahsa MENON HEMATOLOGY Final R esult Performing Organization Address City/[facility] Co de Phone Number [facility] [place] [facility] [address] [place] [address], [facility] [address] [place] [address] * T4,FREE (02/21/2024 2:40 PM UNIVERSAL WINDING MACHINE OPERATOR) [facility] T4, FREE 1.3 0.8 - 1.8 ng/dL [facility] [place] Blood BLOOD SPECIMEN / Unknown 02/21/2024 2:40 PM UNIVERSAL WINDING MACHINE OPERATOR 02/21/2024 2:41 PM UNIVERSAL WINDING MACHINE OPERATOR Mahsa MENON CHEMISTRY Final R esult [employer] [facility] [address] [place] [address], [facility] [address] [place] [address] * FERRITIN (02/21/2024 2:40 PM UNIVERSAL WINDING MACHINE OPERATOR) Pathologist [facility] FERRITIN 62 16 - 154 ng/mL [employer] SoftwareRichard [place] Blood BLOOD SPECIMEN / Unknown 02/21/2024 2:40 PM UNIVERSAL WINDING MACHINE OPERATOR 02/21/2024 2:41 PM UNIVERSAL WINDING MACHINE OPERATOR Mahsa MENON CHEMISTRY Final R esult Performing Organization Address [facility] Co de Phone Number [employer] [facility] [address] [place] [address], [facility] [address] [place] [address] * COMP METABOLIC PANEL (02/21/2024 2:40 PM UNIVERSAL WINDING MACHINE OPERATOR) Pathologist [facility] GLUCOSE 79 65 - 99 mg/dL [facility] [...] BLOOD SPECIMEN / Unknown 02/21/2024 2:40 PM UNIVERSAL WINDING MACHINE OPERATOR 02/21/2024 2:41 PM UNIVERSAL WINDING MACHINE OPERATOR Mahsa MENON CHEMISTRY Final R esult Performing Organization Address [facility]/ZIP Co de Phone Number [facility] [place] [address] [place] [address], [facility] [address] * TREPONEMA PALLIDUM (02/21/2024 2:36 PM UNIVERSAL WINDING MACHINE OPERATOR) Pathologist [facility] TREPONEMA PALLIDUM Non-Reacti ve Non-Reacti ve 02/21/2024 11:07 PM UNIVERSAL WINDING MACHINE OPERATOR [facility] TRAL LABORATORY Blood BLOOD SPECIMEN / Unknown [facility] / Unknown 02/21/2024 2:36 PM UNIVERSAL WINDING MACHINE OPERATOR 02/21/2024 2:36 PM UNIVERSAL WINDING MACHINE OPERATOR Mahsa MENON SEND OUTS Final R esult [facility] [address] [place] [address], [place] * LC HCV ANTIBODY RFX TO QUANT PCR (03/23/2022 12:03 PM UNIVERSAL WINDING MACHINE OPERATOR) Pathologist [facility] HCV Ab <0.1 0.0 - 0.9 s/co ratio 03/25/2022 9:06 PM UNIVERSAL WINDING MACHINE OPERATOR [facility] ESOTERIC TESTING ([facility]) Blood BLOOD SPECIMEN / Unknown Venipuncture / Unknown 03/23/2022 12:03 PM UNIVERSAL WINDING MACHINE OPERATOR 03/23/2022 12:05 PM UNIVERSAL WINDING MACHINE OPERATOR Narrative [facility] ESOTERIC TESTING (CET) - 03/25/2022 9:06 PM UNIVERSAL WINDING MACHINE OPERATOR Performed at: [address] [place] [id number] Certified Ophthalmic Technician: Pedro Fields MD, Phone: [phone] Mahsa MENON LABORATORY Final R esult Performing Organization Address City/[facility]/ZIP Co de Phone Number [facility] ESOTERIC TESTING ([facility]) [address] [place] [address], * HPV HIGH RISK (03/23/2022 11:36 AM UNIVERSAL WINDING MACHINE OPERATOR) [facility] TYPE 16 Negative Negative 03/26/2022 2:05 PM UNIVERSAL WINDING MACHINE OPERATOR [facility] TRAL LABORATORY TYPE 18 Negative Negative 03/26/2022 2:05 PM UNIVERSAL WINDING MACHINE OPERATOR [facility] TRAL LABORATORY OTHER HIGH RISK TYPES Negative Negative 03/26/2022 2:05 PM UNIVERSAL WINDING MACHINE OPERATOR [facility] TRAL LABORATORY Other (Cervical) Non-Blood / Unknown 03/23/2022 11:36 AM UNIVERSAL WINDING MACHINE OPERATOR 03/24/2022 9:57 AM UNIVERSAL WINDING MACHINE OPERATOR Narrative [facility] LABORATORY-CENTRAL LABORATORY - 03/26/2022 2:05 PM UNIVERSAL WINDING MACHINE OPERATOR HPV types 16, 18, 31, 33, 35, 39, 45, 51, 52, 56, 58, 59, 66 and 68 DNA were undetectable or below the pre-set threshold. Methodology: Jackie Porsha 4800 HPV Test Mahsa MENON MICROBIOLOGY Final R esult [facility] LABORATORY-CENTRAL LABORATORY [address] [place] [address], [place] from Last 3 Months or Most Recently Relevant to Health Maintenance Insurance [employer] Member Subscriber Plan / Payer (Ef fective 2017-Present) Name:Jayde Bee Relation to Subscriber:Employee Name:[employer] Date of :2002 (Home) Address: [address] [place] [address] Payer ID:Not on file Group ID:Not on file Type:Not on file Address: [address] [facility] [address] [place] [address] [employer] Member Subscriber Plan / Payer (Ef fective 2017-Present) Name:Jayde Bee Relation to Subscriber:Employee Name:[employer] Date of :2002 (Home) Address: [address] [place] [address] Payer ID:Not on file Group ID:Not on file Type:Not on file Address: [address] [facility] [address] [place] [address] [place] [id number] [facility] [employer] [address] [place] [id number] * Guarantor: [facility] [employer] Account Type Relation to Patient Date of Phone Billing Address [facility] Other FAMILY PLAN - [place] [address] [place] [address] [address] [place] [id number] Advance Directives * Full Code (Latest Code Status on File) Date Activated Date Inactivated Comments 09/24/2013 3:47 PM 09/25/2013 12:39 AM * Full Code Date Activated Date Inactivated Comments 09/11/2013 6:31 PM 09/24/2013 3:47 PM * Full Code Date Activated Date Inactivated Comments 12/13/2012 2:17 AM 12/15/2012 9:12 PM Care Teams Supervisor Wool Shearing Relationship Specialty Start Date End Date [place] [address] PCP - General Family Practice 03/23/12
[2024-04-16 16:28] LABS: Appearance Urine Clear (Clear); Bilirubin Urine Negative (Negative); Blood Urine Trace-intact (Negative); Color Urine Yellow (Yellow); Glucose Urine Negative (Negative); Ketones Urine Negative (Negative); Leukocyte Esterase Urine Negative (Negative); Nitrite Urine Negative (Negative); Protein Urine Negative (Negative); Specific Gravity Urine <= 1.005 (1.000-1.030); Urobilinogen Urine 0.2 (0.2-1.0)
[2024-04-16 16:29] LABS: Ur HCG Qualitative* Negative (Negative)
[2024-04-16 16:33] VITALS: RESP 18
[2024-04-16 16:34] LABS: Basophils Absolute Auto 0.02 K/uL (0.00-0.30); Basophils Percent Auto 0.3 % (0.0-3.0); Eosinophils Absolute Auto 0.01 K/uL (0.00-0.50); Eosinophils Percent Auto 0.1 % (0.0-7.0); Hematocrit 37.4 % (33.0-51.0); Hemoglobin* 12.4 gm/dL (12.0-16.0); Immature Granulocytes Abs Auto 0.01 K/uL (0.00-0.30); Immature Granulocytes Pct Auto 0.1 %; Lymphocytes Percent Auto 26.4 % (20-44); Mean Corpuscular HGB Conc 33 gm/dL (32-36); Mean Corpuscular Hemoglobin 31 pg (26-34); Mean Corpuscular Volume 93 fL (80-100); Monocytes Percent Auto 5.1 % (0.0-11.0); Neutrophils Absolute Auto 4.64 K/uL (1.7-7.0); Platelet Count* 195 K/uL (140-440); RDW Coefficient of Variation % 12.4 % (11.5-15.5); Red Blood Count 4.01 m/uL (4.00-5.20); White Blood Count* 6.83 K/uL (4.50-11.00)
[2024-04-16 16:37] LABS: Slide Review Reflex No
[2024-04-16 16:51] LABS: RBC Urine 0-2 (0-2); WBC Urine 0-2 (0-5)
[2024-04-16 17:40] LABS: Bacterial Vaginosis* Negative (Negative); Candida glab/krus NOT DETECTED (No Detected); Candida species NOT DETECTED (No Detected); Trichomonas vaginalis NOT DETECTED (No Detected)
[2024-04-16 18:11] LABS: Chlamydia DNA Amplified* NOT DETECTED (No Detected); GC DNA Amplified* NOT DETECTED (No Detected)
== END 2024-04-16 17:20 | disposition home or self-care (01) ==
PROVIDERS: Emergency Provider Emergency Medicine; PCP Physician Assistant Medical
DX: K62.89 Other specified diseases of anus and rectum (principal)
CPT/HCPCS: 36415; 81001; 81025; 81513; 85025; 87481; 87491; 87591; 87661; 99283

== ENCOUNTER 2024-05-19 14:42 | Emergency (ER) | payer OTHER, SELFPAY ==
--- OUTSIDE RECORDS SUMMARY | 2024-05-19 14:45 | XMS_ITS | Clinical Summary ---
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 Orders for blood products may be delayed. Medications albuterol HFA (Ventolin HFA) 90 mcg/actuation inhalerIndications :Cough Inhale 1-2 Puffs by mouth every 6 hours if needed for Shortness Of Breath. 1 Each 09/16/19 22 Active naloxone (NARCAN) 4 mg/actuation nasal sprayIndications:A ccidental overdose, initial encounter,Opioid abuse (HC) Inhale 1 Sandstone into affected nostril(s) each time if needed for Patient Diff To Arouse or Resp Rate < 8 / min. Additional doses may be given every 2 to 3 minutes until emergency medical assistance arrives. 2 Each 2 3:41 PM MANAGER HOUSE 01/22/20 22 Active LORazepam (ATIVAN) 0.5 mg tabIndications:Anx iety Take 1 Tablet (0.5 mg) by mouth 2 times daily if needed for Anxiety. 60 Tablet 10/13/19 23 Active triamcinolone 0.5% (ARISTOCORT) 0.5 % creamIndications:B ug bite, initial encounter Apply topically to affected area(s) three times daily. Apply to wrist 30 g 10/13/19 23 Active ondansetron (ZOFRAN ODT) 4 mg disintegrating tabletIndications: Nausea Place 1 Tablet (4 mg) on the tongue every 8 hours if needed for Nausea/Vomitin g. 30 Tablet 12/31/19 23 Active SUMAtriptan (IMITREX) 100 mg tabletIndications: Headache syndrome GIVE AT MINIMUM OF 2 HOURS APART. MAX DOSE 200MG PER 24 HOURS. TAKE 1 TABLET BY MOUTH ONE TIME NEEDED FOR MIGRAINE 10 Tablet 08/28/19 24 Active valACYclovir (VALTREX) 1 gram tabletIndications: Herpes simplex Take 1 Tablet (1 g) by mouth two times daily. 60 Tablet 1 04/19/19 25 Active cephalexin 500 mg capsuleIndications :Cellulitis of skin Take 1 Capsule (500 mg) by mouth three times daily for 7 days. 21 Capsule 05/18/19 25 025 Active fluconazole (DIFLUCAN) 150 mg tabletIndications: Yeast vaginitis Take 1 Tablet (150 mg) by mouth one time for 1 dose. 1 Tablet 05/20/19 25 025 Active ipratropium (ATROVENT NASAL) 21 mcg (0.03 %) nasal sprayIndications:E ustachian tube dysfunction, right Inhale 2 Sprays into affected nostril(s) three times daily. Sandstone dose in each nostril. 30 mL 12/04/19 23 025 Discontinu ed(*Patien t states no longer taking) gabapentin (NEURONTIN) 300 mg capsuleIndications :Tension headache,Pelvic pain Take 1 Capsule (300 mg) by mouth three times daily. 90 Capsule 3 12/31/19 23 025 Discontinu ed(*Patien t states no longer taking) meloxicam 15 mg tabletIndications: Tension headache TAKE 1 TABLET(15 MG) BY MOUTH EVERY DAY 90 Tablet 07/12/19 24 025 Discontinu ed(*Patien t states no longer taking) fluconazole (DIFLUCAN) 150 mg tabletIndications: Yeast vaginitis Take 1 Tablet (150 mg) by mouth one time for 1 dose. Repeat 2nd dose after course of antibiotics. 1 Tablet 05/18/19 25 025 Active Problems Problem Noted Date Diagnosed Date [...] contraceptive device (IUD) 07/08/2016 01/16/2021 Overview (07/08/2016): kyleena 07/07/2016 Post depression 12/27/201305/25 Threatened labor 09/24/2013 [...] within the uterus. Yolk sac is identified. Lindy-rump length measures 1.35 cm consistent with a [...] Encounters Date Type Department Care Team Description 05/19/[address] [address] Mahsa Abbott PA Refill Request (Diflucan) 05/19/2024 Nurse Triage [address] [address] Mahsa Abbott PA Questions (Right leg. ) 05/17/2024 4:00 PM CDT Ancillary Procedure [address] [address] Arrived 05/17/2024 3:45 PM CDT Ancillary Procedure [address] [address] Arrived 05/17/2024 2:40 PM CDT Office Visit [address] [address] Mahsa Abbott PA Concerns ([place] a lump on R side of face, opened jaw and felt a pop and a gush, hasn't felt good since / face swelling ); Derm Problem (Blister on R hip that popped / redness on back of legs and around anus / weird rashes all over her bosy); Vaginal Problem (Took a Plan B 9 days ago and is still bleeding and not feeling well. (Condom felt off)); Abdominal Pain (Feels like their is yeast in her stomach from the antibiotics) 05/17/2024 Travel 04/26/2024 2:10 PM MANAGER HOUSE Office Visit [facility] [address] [place] [address] Nallely Swartz PA Rectal Problem (foul smelling odor from rectum, has had gi issues since oral sex, fatigue, jaw issues feels like it is infected, states she smells like fish from her rectum, now having stomach pain, vaginal discharge, and odor and burning/ongoing for 2 years ) 04/26/2024 Travel 04/19/2024 2:20 PM MANAGER HOUSE Office Visit [facility] [address] [place] [address] Mahsa Abbott PA Derm Problem (herpes) 04/19/2024 Travel 02/22/2024 7:00 AM MANAGER HOUSE Orders Only [facility] [address] [facility] [place] [address] Lab, [place] [facility] 02/21/2024 1:40 PM MANAGER HOUSE Office Visit [facility] [address] [facility] [place] [address] Mahsa Abbott PA Gi Problem (Stomach burning, a lot nausea, not eating or drinking much, anal itching, on and off L sided back pain. Treated her self for parasites and wants to discuss. Eye issues, feels like something is moving inside her eyes.) 02/21/2024 Travel from Last 3 Months Immunizations Immunization Administration Dates Next Due DTP 09/24/1999, 6,06/17/1994,05/05,02/17/1994 [...] Used Date Smoking Tobacco: Former Cigarettes 0.5 17.9 S tarted: 06/17/2006 Smokeless Tobacco: Never Tobacco [...] on file Legal Sex Female 5:21 AM MANAGER HOUSE Gender Identity Not on file Sexual Orientation [...] oz) F 9 9 BLAED E,BG Delivery Location:[facility] Last Filed Vital Signs Vital Sign Reading Time Taken Comments Blood Pressure 125/85 05/17/2024 2:57 PM CDT Pulse 94 05/17/2024 2:57 PM CDT Temperature 36.9 C (98.4 F) 05/17/2024 2:57 PM CDT Respiratory Rate 18 04/26/2024 2:30 PM MANAGER HOUSE Oxygen Saturation 100% 04/26/2024 2:30 PM MANAGER HOUSE Inhaled Oxygen Concentration - - Weight 51.7 kg (114 lb) 05/17/2024 2:57 PM CDT Height 157.5 cm (5' 2) 03/23/2022 11:14 AM MANAGER HOUSE Body Mass Index 20.85 03/23/2022 11:14 AM MANAGER HOUSE Plan of Treatment Upcoming Encounters Date Type Department Care Team (Late st Contact Info) Description 06/19/2024 9:00 AM CDT Office Visit [facility] [address] [place] [place] [address] Bill Lion MD [address] [place] [address] 06/30/2024 3:20 PM CDT Office Visit [facility] [address] [place] [address] Mahsa Abbott PA [address] [facility] [address] 07/13/2024 9:30 AM CDT Office Visit [facility] [address] [place] [address] Mitul Solitario MD [address] [place] [address] Health Maintenance Due Date Last Done Comments Depression screening for age 12+ 06/18/2021 06/18/2020, 06/17/2020, 02/14/2020, Additional history exists BMI (ht and wt on same day) for age 18+ 03/23/2023 03/23/2022, 02/14/2021, 02/13/2019, Additional history exists COVID-19 vaccine series ( season) 2023 Influenza Vaccine (#1) 2023 0, 10/27/2018, 12/20/2016, Additional history exists Pap test for age 21-65 03/23/2027 3, 03/23/2022, 07/12/2018, Additional history exists Tetanus booster 11/04/2030 11/04/2020, 02/0 10/2016, 12/24/2005 Tdap Completed 11/04/2020, 12/24/2005 Hepatitis C screening for age 18-79 Completed 03/23/2022, 05/13/2021, 03/04/2020, Additional history exists HIV for age 15-65 Completed 04/19/2024, , 03/23/2022, Additional history exists Pneumococcal series for age 6-49 Aged Out No longer eligible based on patient's age to complete this topic Procedures Procedure Name Priority Date/Time Associated Diagnosis Comments CT SINUS WO STAT 05/17/2024 3:53 PM CDT Sinus pain XR CHEST 2 VIEWS PA AND LATERAL Routine 05/17/2024 3:43 PM CDT SOB (shortness of breath) TRICHOMONAS, FRANKLIN, AND BACTERIAL VAGINOSIS BY JUDI Routine 04/26/2024 3:24 PM MANAGER HOUSE Vaginal odor 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) Routine 04/19/2024 3:46 PM MANAGER HOUSE Skin lesion 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) Routine 04/19/2024 3:46 PM MANAGER HOUSE Skin lesion TREPONEMA PALLIDUM Routine 04/19/2024 3: 30 PM MANAGER HOUSE Screen for STD (sexually transmitted disease) ANTI HIV 1/2 Routine 04/19/2024 3:30 PM MANAGER HOUSE Screen for STD (sexually transmitted disease) HSV TYPE 1/2 DNA QL PCR (BLOOD AND NON BLOOD) (TixAlert) Routine 04/19/2024 3:30 PM MANAGER HOUSE Screen for STD (sexually transmitted disease) RESULT (REFLEX ONLY) Routine 02/22/2024 6:45 AM MANAGER HOUSE Abdominal pain, generalized Arthralgia, unspecified joint Morning joint stiffness Weight loss Fatigue, unspecified type STOOL PATHOGEN MULTIPLEX PCR PANEL Routine 02/22/2024 6:45 AM MANAGER HOUSE Abdominal pain, generalized Arthralgia, unspecified joint Morning joint stiffness Weight loss Fatigue, unspecified type OVA + PARASITE EXAM Routine 02/22/2024 6 :45 AM MANAGER HOUSE Abdominal pain, generalized Arthralgia, unspecified joint Morning joint stiffness Weight loss Fatigue, unspecified type CBC WITH AUTO DIFFERENTIAL Routine 02/21/2024 2:40 PM MANAGER HOUSE Abdominal pain, generalized Arthralgia, unspecified joint Morning joint stiffness Weight loss Fatigue, unspecified type COMP METABOLIC PANEL Routine 02/21/2024 2:40 PM MANAGER HOUSE Abdominal pain, generalized Arthralgia, unspecified joint Morning joint stiffness Weight loss Fatigue, unspecified type ANTINUCLEAR ANTIBODY BY IFA Routine 02/21/2024 2:40 PM MANAGER HOUSE Abdominal pain, generalized Arthralgia, unspecified joint Morning joint stiffness Weight loss Fatigue, unspecified type CYCLIC CITRULLINE PEPTIDE Routine 02/21/2024 2:40 PM MANAGER HOUSE Abdominal pain, generalized Arthralgia, unspecified joint Morning joint stiffness Weight loss Fatigue, unspecified type LYME SCREEN W/REFLEX Routine 02/21/2024 2:40 PM MANAGER HOUSE Abdominal pain, generalized Arthralgia, unspecified joint Morning joint stiffness Weight loss Fatigue, unspecified type RA QUANTITATIVE Routine 02/21/2024 2:40 PM MANAGER HOUSE Abdominal pain, generalized Arthralgia, unspecified joint Morning joint stiffness Weight loss Fatigue, unspecified type SEDIMENTATION RATE Routine 02/21/2024 2: 40 PM MANAGER HOUSE Abdominal pain, generalized Arthralgia, unspecified joint Morning joint stiffness Weight loss Fatigue, unspecified type C-REACTIVE PROTEIN Routine 02/21/2024 2: 40 PM MANAGER HOUSE Abdominal pain, generalized Arthralgia, unspecified joint Morning joint stiffness Weight loss Fatigue, unspecified type TSH Routine 02/21/2024 2:40 PM MANAGER HOUSE Abdominal pain, generalized Arthralgia, unspecified joint Morning joint stiffness Weight loss Fatigue, unspecified type FERRITIN Routine 02/21/2024 2:40 PM MANAGER HOUSE Abdominal pain, generalized Arthralgia, unspecified joint Morning joint stiffness Weight loss Fatigue, unspecified type IRON PLUS IRON BINDING CAP Routine 02/21/2024 2:40 PM MANAGER HOUSE Abdominal pain, generalized Arthralgia, unspecified joint Morning joint stiffness Weight loss Fatigue, unspecified type T4,FREE Routine 02/21/2024 2:40 PM MANAGER HOUSE Abdominal pain, generalized Arthralgia, unspecified joint Morning joint stiffness Weight loss Fatigue, unspecified type ANTI HIV 1/2 Routine 02/21/2024 2:40 PM MANAGER HOUSE Abdominal pain, generalized Arthralgia, unspecified joint Morning joint stiffness Weight loss Fatigue, unspecified type TREPONEMA PALLIDUM Routine 02/21/2024 2: 36 PM MANAGER HOUSE Abdominal pain, generalized Arthralgia, unspecified joint Morning joint stiffness Weight loss Fatigue, unspecified type LC HCV ANTIBODY RFX TO QUANT PCR Routine 03/23/2022 12:03 PM MANAGER HOUSE Screen for STD (sexually transmitted disease) HPV HIGH RISK Routine 03/23/2022 11:36 AM MANAGER HOUSE Cervical cancer screening Screening for cervical cancer from Last 3 Months or Most Recently Relevant to Health Maintenance Results * CT SINUS WO (05/17/2024 3:53 PM CDT) Anatomical Region Laterality Modality SINUS Computed Tomogra phy 05/17/2024 4:03 PM CDT Impressions 05/17/2024 4:03 PM CDT Clear paranasal sinuses with patent drainage pathways. Please note that all CT scans at this facility use dose modulation, iterative reconstruction, and/or weight-based dosing when appropriate to reduce radiation dose to as low as reasonably achievable. Dictated by Lj Jha MD @ 05/17/2024 4:03:53 PM (Electronically Signed) Narrative 05/17/2024 4:03 PM CDT For Patients: As a result of the Century Cures Act, medical imaging exams and procedure reports are released immediately into your electronic medical record. You may view this report before your referring provider. If you have questions, please contact your health care provider. INDICATION: Sinus pain COMPARISON: None. TECHNIQUE: CT of the paranasal sinuses without intravenous contrast. FINDINGS: Clear frontal sinuses with patent drainage pathways. Clear ethmoid air cells. Clear sphenoid sinuses with patent drainage pathways. Clear maxillary sinuses with patent drainage pathways. Minimal rightward deviation of the nasal septum. Clear mastoid air cells. Normal alignment of the temporomandibular joints. Procedure Note Lj Jha MD - 05/17/2024 For Patients: As a result of the Cures Act, medical imagingexams and procedure reports are released immediately into your electronicmedical record. You may view this report before your referring provider.If you have questions, please contact your health care provider. INDICATION: Sinus pain COMPARISON: None. TECHNIQUE: CT of the paranasal sinuses without intravenous contrast. FINDINGS: Clear frontal sinuses with patent drainage pathways. Clear ethmoid aircells. Clear sphenoid sinuses with patent drainage pathways. Clearmaxillary sinuses with patent drainage pathways. Minimal rightwarddeviation of the nasal septum. Clear mastoid air cells. Normal alignmentof the temporomandibular joints. IMPRESSION: Clear paranasal sinuses with patent drainage pathways. Please note that all CT scans at this facility use dose modulation,iterative reconstruction, and/or weight-based dosing when appropriate toreduce radiation dose to as low as reasonably achievable. Dictated by Lj Jha MD @ 05/17/2024 4:03:53 PM (Electronically Signed) Mahsa MENON CT Final R esult * XR CHEST 2 VIEWS PA AND LATERAL (05/17/2024 3:43 PM CDT) Anatomical Region Laterality Modality CHEST, THORAX, Lung, HEART Compu august Radiography 05/17/2024 4:11 PM CDT Narrative 05/17/2024 4:11 PM CDT For Patients: As a result of the Cures Act, medical imaging exams and procedure reports are released immediately into your electronic medical record. You may view this report before your referring provider. If you have questions, please contact your health care provider. Indication: Shortness of breath Technique: Chest 2 views Comparison: Chest x-ray 08/18/2014 Findings/Impression: Cardiovascular and mediastinum: Heart size and vasculature are normal in caliber and appearance. Mediastinum is within normal limits. Lungs and pleural spaces: Lungs are clear. No sign of infiltrate or mass. No sign of pleural effusion. No pneumothorax. Bones and soft tissues: Metal piercing within the anterior subcutaneous tissues. Dictated by Vern Barnes MD @ 05/17/2024 4:11:30 PM (Electronically Signed) Procedure Note Vern Barnes MD - 05/17/2024 For Patients: As a result of the Century Cures Act, medical imagingexams and procedure reports are released immediately into your electronicmedical record. You may view this report before your referring provider.If you have questions, please contact your health care provider. Indication: Shortness of breath Technique: Chest 2 views Comparison: Chest x-ray 08/18/2014 Findings/Impression: Cardiovascular and mediastinum: Heart size and vasculature are normal incaliber and appearance. Mediastinum is within normal limits. Lungs and pleural spaces: Lungs are clear. No sign of infiltrate ormass. No sign of pleural effusion. No pneumothorax. Bones and soft tissues: Metal piercing within the anterior subcutaneoustissues. Dictated by Vern Barnes MD @ 05/17/2024 4:11:30 PM (Electronically Signed) Mahsa MENON GENERAL IMAGING Final R esult * TRICHOMONAS, FRANKLIN, AND BACTERIAL VAGINOSIS BY JUDI (04/26/2024 3:24 PM MANAGER HOUSE) FRANKLIN SPECIES Negative Negative 3:48 AM MANAGER HOUSE [facility] FRANKLIN GLABRATA Negative Negative 04/27/2024 3:48 AM MANAGER HOUSE [facility] TRICHOMONAS VVA Negative Negative 3:48 AM MANAGER HOUSE [facility] BACTERIAL VAGINOSIS Negative Negative 04/27/2024 3:48 AM MANAGER HOUSE [facility] Other VAGINAL SWAB / Unknown Non-Blood / Unknown 04/26/2024 3:24 PM MANAGER HOUSE 04/26/2024 6:46 PM MANAGER HOUSE Nallely MENON MICROBIOLOGY Final R esult [facility] 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 HSV 1 Negative Negative 04/21/2024 11:40 AM MANAGER HOUSE [facility] HSV 2 Negative Negative 04/21/2024 11:40 AM MANAGER HOUSE [facility] Other LESION SPECIMEN / Unknown Non-Blood / Unknown 04/19/2024 3:46 PM MANAGER HOUSE 04/19/2024 3:46 PM MANAGER HOUSE Narrative [facility] - 04/21/2024 11:40 AM MANAGER HOUSE Results from the Aptima HSV 1 & 2 assay should be interpreted in conjunction with other clinical data available to the clinician. A negative Aptima HSV 1 & 2 assay result does not preclude a possible infection because results are dependent on adequate specimen collection. us Mahsa MENON MICROBIOLOGY Final R esult Performing Organization Address City/State/[facility] Co de Phone Number [facility] [address] [place] [address], * HSV TYPE 1/2 DNA QL PCR (BLOOD AND NON BLOOD) (TixAlert) (04/19/2024 3:30 PM MANAGER HOUSE) Pathologist [facility] SOURCE HSVPCR Blood [facility] ion[facility]Me dFusion HSV 1 DNA Not Detected Not Detected [facility] usion-Me dFusion HSV 2 DNA Not Detected Not Detected [facility] usion-Me dFusion Comment: (Note) This test was developed and its analytical performance characteristics have been determined by [employer]. It has not been cleared or approved by the U.S. Food and Drug Administration. This assay has been validated pursuant to the CLIA regulations and is used for clinical purposes. MDF med fusion [address] [address],[address] [facility] [address] Romero Barry MD, PhD BLOOD SPECIMEN / Unknown 04/19/2024 3:30 PM MANAGER HOUSE 04/19/2024 3:33 PM MANAGER HOUSE us Mahsa MENON SEND OUTS Final R esult [facility] [address] [facility] [address] [place] [address], [facility] [address] [facility] [address], [address] [place] [address] * TREPONEMA PALLIDUM (04/19/2024 3:30 PM MANAGER HOUSE) Only the most recent of2 resultswithin the time period is included. TREPONEMA PALLIDUM Non-Reacti ve Non-Reacti ve 04/19/2024 11:48 PM MANAGER HOUSE [facility] Blood BLOOD SPECIMEN / Unknown [facility] / Unknown 04/19/2024 3:30 PM MANAGER HOUSE 04/19/2024 3:30 PM MANAGER HOUSE Mahsa MENON SEND OUTS Final R esult [facility] [address] [place] [address], * ANTI HIV 1/2 (04/19/2024 3:30 PM MANAGER HOUSE) Only the most recent of2 resultswithin the time period is included. HIV AG/AB, 4TH GEN NON-REACT YA NON-REACT YA [facility] Comment: HIV-1 antigen and HIV-1/HIV-2 antibodies [...] purpose. For additional information please refer to http://education.GaBoom.[employer]/faq/UFS869 (This link is being provided for informational/ educational purposes only.) The performance of this assay has not been clinically validated in patients less than 2 years old. Blood BLOOD SPECIMEN / Unknown 04/19/2024 3:30 PM MANAGER HOUSE 04/19/2024 3:33 PM MANAGER HOUSE Mahsa MENON SEND OUTS Final R esult [facility] [address] [place] [address], [place] [phone] [facility] [address] [place] [address] * RESULT (REFLEX ONLY) (02/22/2024 6:45 AM MANAGER HOUSE) Result 1 Comment 03/03/2024 2:07 PM MANAGER HOUSE [facility] ([facility]) Comment: No ova, cysts, or parasites seen. One negative specimen does not rule out the possibility of a parasitic infection. Stool STOOL SPECIMEN / Unknown Non-Blood / Unknown 02/22/2024 6:45 AM MANAGER HOUSE 02/22/2024 9:34 AM MANAGER HOUSE Narrative [facility] ([facility]) - 03/03/2024 2:07 PM MANAGER HOUSE Performed at: [address] [place] [address] [address], [place], [place] [id number] Fur Blower: GEETHA Rocha MD, Phone: [phone] Mahsa MENON LABORATORY Final R esult [facility] ([facility]) [address] [place] [address], * OVA + PARASITE EXAM (02/22/2024 6:45 AM MANAGER HOUSE) Ova + Parasite Exam Final report 03/03/2024 2:07 PM MANAGER HOUSE [facility] ([facility]) Comment: These results were obtained using wet preparation(s) and trichrome stained smear. This test does not include testing for Cryptosporidium parvum, Cyclospora, or Microsporidia. Stool STOOL SPECIMEN / Unknown Non-Blood / Unknown 02/22/2024 6:45 AM MANAGER HOUSE 02/22/2024 9:34 AM MANAGER HOUSE Narrative [facility] ([facility]) - 03/03/2024 2:07 PM MANAGER HOUSE Performed at: 01 - [facility] [address] [facility] [address], [place], [place] [id number] Fur Blower: GEETHA Rocha MD, Phone: [phone] us Mahsa MENON SEND OUTS Final R esult [facility] (CET) [address] [place] [address] * STOOL PATHOGEN MULTIPLEX PCR PANEL (02/22/2024 6:45 AM MANAGER HOUSE) Campylobacter NOT Detected NOT Detected 02/22/2024 10:44 PM MANAGER HOUSE [facility] Salmonella NOT Detected NOT Detected 02/22/2024 10:44 PM MANAGER HOUSE [facility] Shigella NOT Detected NOT Detected 02/22/2024 10:44 PM MANAGER HOUSE [facility] Vibrio NOT Detected NOT Detected 02/22/2024 10:44 PM MANAGER HOUSE [facility] Yersinia Enterocolitica NOT Detected NOT Detected 02/22/2024 10:44 PM MANAGER HOUSE [facility] Shiga Toxin 1 NOT Detected NOT Detected 02/22/2024 10:44 PM MANAGER HOUSE [facility] Shiga Toxin 2 NOT Detected NOT Detected 02/22/2024 10:44 PM MANAGER HOUSE [facility] Norovirus NOT Detected NOT Detected 02/22/2024 10:44 PM MANAGER HOUSE [facility] Rotavirus NOT Detected NOT Detected 02/22/2024 10:44 PM MANAGER HOUSE [facility] Stool STOOL SPECIMEN / Unknown Non-Blood / Unknown 02/22/2024 6:45 AM MANAGER HOUSE 02/22/2024 9:[address] [facility] - 02/22/2024 10:44 PM MANAGER HOUSE This test is a Culture Independent Diagnostic Test (CIDT) therefore isolates are not available for susceptibility testing. Antibiotic treatment is often contraindicated and may be detrimental in cases of enteric infections, thus routine susceptibility testing is not recommended. Mahsa MENON MICROBIOLOGY Final R esult [facility] [address] [place] [address], [place] * SEDIMENTATION RATE (02/21/2024 2:40 PM MANAGER HOUSE) Pathologist [facility] [facility] [place] SED RATE BY MODIFIED WESTERGREN 6 < OR = 20 mm/h [facility] [place] Blood BLOOD SPECIMEN / Unknown 02/21/2024 2:40 PM MANAGER HOUSE 02/21/2024 2:41 PM MANAGER HOUSE Mahsa MENON HEMATOLOGY Final R esult Performing Organization Address City/[facility] Co de Phone Number [employer] [facility] [address] [place] [address], [facility] [address] [place] [address] * ANTINUCLEAR ANTIBODY BY IFA (02/21/2024 2:40 PM MANAGER HOUSE) Pathologist [facility] [place] CHANCE SCREEN, IFA NEGATIVE NEGATIVE Ques [facility] Comment: CHANCE IFA is a first line [...] AC-0: Negative International Consensus on CHANCE Patterns (https://doi.org/10.1515/rtwm-9867-2013) For additional information, please refer to http://education.uma information technology.O2 Secure Wireless/faq/XAS418 (This link is being provided for informational/ educational purposes only.) Blood BLOOD SPECIMEN / Unknown 02/21/2024 2:40 PM MANAGER HOUSE 02/21/2024 2:41 PM MANAGER HOUSE Mahsa MENON CHEMISTRY Final R esult Performing Organization Address City/[facility]/ZIP Co de Phone Number [employer] [facility] [address] [place] [address], [place] [phone] [facility] [address] [place] [address] * CYCLIC CITRULLINE PEPTIDE (02/21/2024 2:40 PM MANAGER HOUSE) Pathologist [facility] [place] CYCLIC CITRULLINATED PEPTIDE (CCP) AB (IGG) <16 UNITS [facility] Comment: Reference Range Negative: <20 Weak Positive: 20-39 Moderate Positive: 40-59 Strong Positive: >59 Blood BLOOD SPECIMEN / Unknown 02/21/2024 2:40 PM MANAGER HOUSE 02/21/2024 2:41 PM MANAGER HOUSE Mahsa MENON SEND OUTS Final R esult Performing Organization Address [facility] Co de Phone Number [employer] [facility] [address] [place] [address], [place] [phone] [facility] [address] [place] [address] * TSH (02/21/2024 2:40 PM MANAGER HOUSE) [facility] TSH 0.41 mIU/L [facility] Comment: Reference Range > or = 20 Years 0.40-4.50 Ranges First trimester 0.26-2.66 Second trimester 0.55-2.73 Third trimester 0.43-2.91 Blood BLOOD SPECIMEN / Unknown 02/21/2024 2:40 PM MANAGER HOUSE 02/21/2024 2:41 PM MANAGER HOUSE Mahsa MENON CHEMISTRY Final R esult Performing Organization Address City/[facility]/ZIP Co de Phone Number [employer] [facility] [address] [place] [address], [facility] [address] [place] [address] * IRON PLUS IRON BINDING CAP (02/21/2024 2:40 PM MANAGER HOUSE) [facility] IRON, TOTAL 77 40 - 190 mcg/dL [facility] IRON BINDING CAPACITY 295 250 - 450 mcg/dL (calc) [facility] % SATURATION 26 16 - 45 % (calc) [facility] Blood BLOOD SPECIMEN / Unknown 02/21/2024 2:40 PM MANAGER HOUSE 02/21/2024 2:41 PM MANAGER HOUSE Mahsa MENON CHEMISTRY Final R esult [employer] [facility] [address] [place] [address], [facility] [address] [place] [address] * LYME SCREEN W/REFLEX (02/21/2024 2:40 PM MANAGER HOUSE) [facility] LYME AB, SCREEN < or = 0.90 index [facility], Comment: REFERENCE RANGE: < OR = [...] BLOOD SPECIMEN / Unknown 02/21/2024 2:40 PM MANAGER HOUSE 02/21/2024 2:41 PM MANAGER HOUSE Mahsa MENON SEND OUTS Final R esult Performing Organization Address [facility]/ZIP Co de Phone Number [facility] [address] [place] [address], [facility]/C[facility], [address] [place] [address] * RA QUANTITATIVE (02/21/2024 2:40 PM MANAGER HOUSE) RHEUMATOID FACTOR <10 <14 IU/mL [facility] Blood BLOOD SPECIMEN / Unknown 02/21/2024 2:40 PM MANAGER HOUSE 02/21/2024 2:41 PM MANAGER HOUSE Mahsa MENON SEND OUTS Final R esult Performing Organization Address [facility] Co de Phone Number [facility] [address] [place] [address], [place] [phone] [facility] [address] [facility] [address] * C-REACTIVE PROTEIN (02/21/2024 2:40 PM MANAGER HOUSE) C-REACTIVE PROTEIN <3.0 <8.0 mg/L [facility] Blood BLOOD SPECIMEN / Unknown 02/21/2024 2:40 PM MANAGER HOUSE 02/21/2024 2:41 PM MANAGER HOUSE Mahsa MENON CHEMISTRY Final R esult Performing Organization Address City/[facility]/ZIP Co de Phone Number [facility] [address] [facility] [place] [address], [place] [phone] [facility] [address] [place] [address] * CBC AND DIFFERENTIAL (02/21/2024 2:40 PM MANAGER HOUSE) [facility] WHITE BLOOD CELL COUNT 7.0 3.8 - 10.8 Thousand/u L [facility] RED BLOOD CELL COUNT 4.20 3.80 - 5.10 Million/uL [facility] HEMOGLOBIN 13.1 11.7 - 15.5 g/dL [facility] [...] COUNT 245 140 - 400 Thousand/u L [facility] MPV 11.0 7.5 - [...] BLOOD SPECIMEN / Unknown 02/21/2024 2:40 PM MANAGER HOUSE 02/21/2024 2:41 PM MANAGER HOUSE Mahsa MENON HEMATOLOGY Final R esult [facility] [address] [place] [address], [place] [phone] [facility] [address] [place] [address] * T4,FREE (02/21/2024 2:40 PM MANAGER HOUSE) T4, FREE 1.3 0.8 - 1.8 ng/dL [facility] Blood BLOOD SPECIMEN / Unknown 02/21/2024 2:40 PM MANAGER HOUSE 02/21/2024 2:41 PM MANAGER HOUSE Mahsa MENON CHEMISTRY Final R esult Performing Organization Address City/[facility]/ZIP Co de Phone Number [facility] [address] [place] [address], [place] [phone] [facility] [address] [place] [address] * FERRITIN (02/21/2024 2:40 PM MANAGER HOUSE) Pathologist [facility] [place] FERRITIN 62 16 - 154 ng/mL [facility] Blood BLOOD SPECIMEN / Unknown 02/21/2024 2:40 PM MANAGER HOUSE 02/21/2024 2:41 PM MANAGER HOUSE Mahsa MENON CHEMISTRY Final R esult [facility] [address] [place] [address], [place] [phone] [facility] [address] [place] [address] * COMP METABOLIC PANEL (02/21/2024 2:40 PM MANAGER HOUSE) GLUCOSE 79 65 - 99 mg/dL [facility] [...] ALKALINE PHOSPHATASE 58 31 - 125 U/L [facility] AST 15 10 - 30 U/L [facility] ALT 11 6 - 29 U/L [facility] Blood BLOOD SPECIMEN / Unknown 02/21/2024 2:40 PM MANAGER HOUSE 02/21/2024 2:41 PM MANAGER HOUSE us Mahsa MENON CHEMISTRY Final R esult [employer] [facility] [address] [place] [address], [facility] [address] [place] [address] * LC HCV ANTIBODY RFX TO QUANT PCR (03/23/2022 12:03 PM MANAGER HOUSE) HCV Ab <0.1 0.0 - 0.9 s/co ratio 03/25/2022 9:06 PM MANAGER HOUSE [facility] ([facility]) Blood BLOOD SPECIMEN / Unknown Venipuncture / Unknown 03/23/2022 12:03 PM MANAGER HOUSE 03/23/2022 12:05 PM MANAGER HOUSE Narrative [facility] ([facility]) - 03/25/2022 9:06 PM MANAGER HOUSE Performed at: [address] [place] [id number] Fur Blower: Pedro Fields MD, Phone: [phone] Mahsa MENON LABORATORY Final R esult Performing Organization Address City/[facility] Co de Phone Number [facility] ([facility]) [address] [place] [address] * HPV HIGH RISK (03/23/2022 11:36 AM MANAGER HOUSE) Pathologist [facility] [place] TYPE 16 Negative Negative 03/26/2022 2:05 PM MANAGER HOUSE [facility] TYPE 18 Negative Negative 03/26/2022 2:05 PM MANAGER HOUSE [facility] OTHER HIGH RISK TYPES Negative Negative 03/26/2022 2:05 PM MANAGER HOUSE [facility] Other (Cervical) Non-Blood / Unknown 03/23/2022 11:36 AM MANAGER HOUSE 03/24/2022 9:57 AM MANAGER HOUSE Narrative [facility] - 03/26/2022 2:05 PM MANAGER HOUSE HPV types 16, 18, 31, 33, 35, 39, 45, 51, 52, 56, 58, 59, 66 and 68 DNA were undetectable or below the pre-set threshold. Methodology: Jackie Porsha 4800 HPV Test Mahsa MENON MICROBIOLOGY Final R esult [facility] [address] [place] [address], [place] from Last 3 Months or Most Recently Relevant to Health Maintenance Insurance [facility] [employer] Member Subscriber Plan / Payer (Ef fective 2017-Present) Name:Jayde Bee Relation to Subscriber:Employee Name:[employer] Date of :2002 (Home) Address: [address] [place] [address] Payer ID:Not on file Group ID:Not on file Type:Not on file Address: [address] [facility] [address] [place] [phone] [facility] Member Subscriber Plan / Payer (Ef fective 2017-Present) Name:Jayde Bee Relation to Subscriber:Employee Name:[employer] Date of :2002 (Home) Address: [address] [place] [address] Payer ID:Not on file Group ID:Not on file Type:Not on file Address: [address] [facility] [address] [place] [phone] [place] [id number] [facility] [employer] [address] [place] [id number] [address] [place] [id number] Advance Directives * Full Code (Latest Code Status on File) Date Activated Date Inactivated Comments 09/24/2013 3:47 PM 09/25/2013 12:39 AM * Full Code Date Activated Date Inactivated Comments 09/11/2013 6:31 PM 09/24/2013 3:47 PM * Full Code Date Activated Date Inactivated Comments 12/13/2012 2:17 AM 12/15/2012 9:12 PM Care Teams [employer] Relationship Specialty Start Date End Date Mahsa Abbott PA [address] [place] [address] PCP - General Family Practice 03/23/12
[2024-05-19 14:52] VITALS: BP 129/91; PULSE 91; RESP 18; TEMP 36.8; O2SAT 100; BMI 20.9
--- NOTE | 2024-05-19 16:01 | ED_ITS ---
HPI - General Adult General Chief complaint: Skin/Abscess/Foreign Body Stated complaint: Open sore on Rt leg Time Seen by Provider: 05/19/24 15:57 Source: patient Mode of arrival: ambulatory Limitations: no limitations History of Present Illness HPI narrative: 28-year-old female presenting today with a rash on the upper lateral right thigh. She noticed a small blister on Wednesday that popped and she went to see [facility] doctor and was put on cephalexin t.i.d. which she has been on for 3 days now. She states that despite antibiotic treatment the area is becoming more uncomfortable in the area of erythema is growing. She denies similar rash anywhere else in she denies any systemic symptoms. Past medical history significant for migraine headaches for which she takes Imitrex. Related Data Home Medications ?Medication ?Instructions ?Recorded ?Confirmed sumatriptan succinate 100 mg tablet 100 mg PO DAILY PRN migraine 05/19/24 05/19/24 Previous Rx's ?Medication ?Instructions ?Recorded cephalexin 500 mg capsule 500 mg PO TID #21 caps 02/01/24 sulfamethoxazole 800 1 tab PO BID 7 days #14 tabs 05/19/24 mg-trimethoprim 160 mg tablet (Bactrim DS) Allergies Allergy/AdvReac Type Severity Reaction Status Date / Time No Known Drug Allergies Allergy Verified 05/19/24 15:00 Review of Systems Status of ROS: Reports: 6 or more systems reviewed and unremarkable except as noted in History and below [facility] Social History Smoking Status: Current every day smoker Do you use any of these nicotine containing products: E-Cigarettes and Vaping Products Second hand tobacco smoke exposure: No How often do you have a drink containing alcohol: never AUDIT-C Alcohol total score: 0 Non-prescribed substance use: marijuana (any form) service: No Exam Narrative: Exam Narrative: On the upper lateral right thigh patient has an area of erythema that is approximately an inch in diameter. In the center there is a small ulceration from a blister that popped. Const: Vital Signs, click to edit/add: Vital Signs - 24 hr 05/19/24 14:52 Temperature 98.3 F Pulse Rate [Right Pulse Oximeter] 91 Respiratory Rate 18 Blood Pressure [Ri ght Upper Arm] 129/91 H Pulse Oximetry 100 Oxygen Delivery Me thod Room Air Course Vital Signs Vital signs: Initial Vital Signs Temperature 98.3 F 05/19/24 14:52 Temperature Source Temporal Artery Scan 05/19/24 14:52 Pulse Rate 91 05/19/24 14:52 Pulse Rhythm Regular 05/19/24 14:52 Pulse Strength 3+ Normal 05/19/24 14:52 Respiratory Rate 18 05/19/24 14:52 Blood Pressure 129/91 H 05/19/24 14:52 Blood Pressure Mean 103 05/19/24 14:52 Blood Pressure Position Sitting 05/19/24 14:52 Pulse Oximetry 100 05/19/24 14:52 Oxygen Delivery Method Room Air 05/19/24 14:52 Vital Signs Temperature 98.3 F 05/19/24 14:52 Pulse Rate 91 05/19/24 14:52 Respiratory Rate 18 05/19/24 14:52 Blood Pressure 129/91 H 05/19/24 14:52 Pulse Oximetry 100 05/19/24 14:52 Oxygen Delivery Method Room Air 05/19/24 14:52 Temperature 98.3 F 05/19/24 14:52 Pulse Rate 91 05/19/24 14:52 Respiratory Rate 18 05/19/24 14:52 Blood Pressure 129/91 H 05/19/24 14:52 Pulse Oximetry 100 05/19/24 14:52 Oxygen Delivery Method Room Air 05/19/24 14:52 Medical Decision Making MDM Narrative Medical decision making narrative: 28-year-old female small area of cellulitis. Will add Bactrim DS. Recheck in 48 hours if area continues to grow. Discharge Plan Discharge Clinical Impression: Cellulitis Patient Disposition: Home, Self-Care Condition: Stable Additional Instructions: Continue taking cephalexin as prescribed. Will add Bactrim DS twice daily. If after 2 doses of Bactrim the area has grown significantly you should return to the ER, or if after 48 hours it continues to grow then you should return to the ER. Prescriptions: New sulfamethoxazole-trimethoprim [Bactrim DS] 800-160 mg tablet 1 tab PO BID 7 Days Qty: 14 0RF No Action sumatriptan succinate 100 mg tablet 100 mg PO DAILY PRN (Reason: migraine) cephalexin 500 mg capsule 500 mg PO TID Qty: 21 0RF Follow Up/Referrals: Mahsa Abbott PA-C [Primary Care Provider] - Stand Alone Forms: [employer] [facility] Info Instructions
--- OUTSIDE RECORDS SUMMARY | 2024-05-19 16:14 | XMS_ITS | Clinical Summary ---
Author Organization [facility] Address [address] [place] [address] Care Team Providers Care Kiln Head House Operator Name Role Phone Mahsa Abbott Primary Care [...] overdose, initial encounter,Opioid abuse (HC) Inhale 1 Buffalo into affected nostril(s) each time if needed for Patient Diff To Arouse or Resp Rate < 8 / min. Additional doses may be given every 2 to 3 minutes until emergency medical assistance arrives. 2 Each 2 3:41 PM VACATION PLANNER 01/22/20 22 Active LORazepam (ATIVAN) 0.5 mg [...] Sprays into affected nostril(s) three times daily. Buffalo dose in each nostril. 30 mL 12/04/19 [...] within the uterus. Yolk sac is identified. [place]-rump length measures 1.35 cm consistent with a [...] Type Department Care Team Description 05/19/[address] [address] Mahsa Abbott PA Refill Request (Diflucan) 05/19/2024 Nurse Triage [address] [address] Mahsa Abbott PA Questions (Right leg. ) 05/17/2024 4:00 PM CDT Ancillary Procedure [address] [address] Arrived 05/17/2024 3:45 PM CDT Ancillary Procedure [address] [address] Arrived 05/17/2024 2:40 PM CDT Office Visit [address] [address] Mahsa Abbott PA Concerns ([place] a lump on R side of face, [...] the antibiotics) 05/17/2024 Travel 04/26/2024 2:10 PM VACATION PLANNER Office Visit [facility] [address] [place] [address] Nallely Swartz PA Rectal Problem (foul smelling odor from rectum, has had gi issues since oral sex, fatigue, jaw issues feels like it is infected, states she smells like fish from her rectum, now having stomach pain, vaginal discharge, and odor and burning/ongoing for 2 years ) 04/26/2024 Travel 04/19/2024 2:20 PM VACATION PLANNER Office Visit [facility] [address] [place] [address] Mahsa Abbott PA Derm Problem (herpes) 04/19/2024 Travel 02/22/2024 7:00 AM VACATION PLANNER Orders Only [facility] [address] [facility] [address] Lab, [place] [facility] 02/21/2024 1:40 PM VACATION PLANNER Office Visit [facility] [address] [facility] [address] Mahsa Abbott PA Gi Problem (Stomach burning, [...] on file Legal Sex Female 5:21 AM VACATION PLANNER Gender Identity Not on file Sexual Orientation [...] oz) F 9 9 BLAED E,BG Delivery Location:[facility] Last Filed Vital Signs Vital Sign Reading Time Taken Comments Blood Pressure 125/85 05/17/2024 2:57 PM CDT Pulse 94 05/17/2024 2:57 PM CDT Temperature 36.9 C (98.4 F) 05/17/2024 2:57 PM CDT Respiratory Rate 18 04/26/2024 2:30 PM VACATION PLANNER Oxygen Saturation 100% 04/26/2024 2:30 PM VACATION PLANNER Inhaled Oxygen Concentration - - Weight 51.7 kg (114 lb) 05/17/2024 2:57 PM CDT Height 157.5 cm (5' 2) 03/23/2022 11:14 AM VACATION PLANNER Body Mass Index 20.85 03/23/2022 11:14 AM VACATION PLANNER Plan of Treatment Upcoming Encounters Date Type Department Care Team (Late st Contact Info) Description 06/19/2024 9:00 AM CDT Office Visit [facility] [address] [place] [address] Bill Lion MD [address] [place] [address] 06/30/2024 3:20 PM CDT Office Visit [facility] [address] [place] [address] Mahsa Abbott PA [address] [facility] [address] 07/13/2024 9:30 AM CDT Office Visit [facility] [address] [place] [address] Mitul Solitario MD [address] [place] [address] Health Maintenance Due Date Last Done Comments [...] VAGINOSIS BY JUDI Routine 04/26/2024 3:24 PM VACATION PLANNER Vaginal odor 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) Routine 04/19/2024 3:46 PM VACATION PLANNER Skin lesion 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) Routine 04/19/2024 3:46 PM VACATION PLANNER Skin lesion TREPONEMA PALLIDUM Routine 04/19/2024 3: 30 PM VACATION PLANNER Screen for STD (sexually transmitted disease) ANTI HIV 1/2 Routine 04/19/2024 3:30 PM VACATION PLANNER Screen for STD (sexually transmitted disease) HSV TYPE 1/2 DNA QL PCR (BLOOD AND NON BLOOD) ([employer]) Routine 04/19/2024 3:30 PM VACATION PLANNER Screen for STD (sexually transmitted disease) RESULT (REFLEX ONLY) Routine 02/22/2024 6:45 AM VACATION PLANNER Abdominal pain, generalized Arthralgia, unspecified joint Morning joint stiffness Weight loss Fatigue, unspecified type STOOL PATHOGEN MULTIPLEX PCR PANEL Routine 02/22/2024 6:45 AM VACATION PLANNER Abdominal pain, generalized Arthralgia, unspecified joint Morning joint stiffness Weight loss Fatigue, unspecified type OVA + PARASITE EXAM Routine 02/22/2024 6 :45 AM VACATION PLANNER Abdominal pain, generalized Arthralgia, unspecified joint Morning joint stiffness Weight loss Fatigue, unspecified type CBC WITH AUTO DIFFERENTIAL Routine 02/21/2024 2:40 PM VACATION PLANNER Abdominal pain, generalized Arthralgia, unspecified joint Morning joint stiffness Weight loss Fatigue, unspecified type COMP METABOLIC PANEL Routine 02/21/2024 2:40 PM VACATION PLANNER Abdominal pain, generalized Arthralgia, unspecified joint Morning joint stiffness Weight loss Fatigue, unspecified type ANTINUCLEAR ANTIBODY BY IFA Routine 02/21/2024 2:40 PM VACATION PLANNER Abdominal pain, generalized Arthralgia, unspecified joint Morning joint stiffness Weight loss Fatigue, unspecified type CYCLIC CITRULLINE PEPTIDE Routine 02/21/2024 2:40 PM VACATION PLANNER Abdominal pain, generalized Arthralgia, unspecified joint Morning joint stiffness Weight loss Fatigue, unspecified type LYME SCREEN W/REFLEX Routine 02/21/2024 2:40 PM VACATION PLANNER Abdominal pain, generalized Arthralgia, unspecified joint Morning joint stiffness Weight loss Fatigue, unspecified type RA QUANTITATIVE Routine 02/21/2024 2:40 PM VACATION PLANNER Abdominal pain, generalized Arthralgia, unspecified joint Morning joint stiffness Weight loss Fatigue, unspecified type SEDIMENTATION RATE Routine 02/21/2024 2: 40 PM VACATION PLANNER Abdominal pain, generalized Arthralgia, unspecified joint Morning joint stiffness Weight loss Fatigue, unspecified type C-REACTIVE PROTEIN Routine 02/21/2024 2: 40 PM VACATION PLANNER Abdominal pain, generalized Arthralgia, unspecified joint Morning joint stiffness Weight loss Fatigue, unspecified type TSH Routine 02/21/2024 2:40 PM VACATION PLANNER Abdominal pain, generalized Arthralgia, unspecified joint Morning joint stiffness Weight loss Fatigue, unspecified type FERRITIN Routine 02/21/2024 2:40 PM VACATION PLANNER Abdominal pain, generalized Arthralgia, unspecified joint Morning joint stiffness Weight loss Fatigue, unspecified type IRON PLUS IRON BINDING CAP Routine 02/21/2024 2:40 PM VACATION PLANNER Abdominal pain, generalized Arthralgia, unspecified joint Morning joint stiffness Weight loss Fatigue, unspecified type T4,FREE Routine 02/21/2024 2:40 PM VACATION PLANNER Abdominal pain, generalized Arthralgia, unspecified joint Morning joint stiffness Weight loss Fatigue, unspecified type ANTI HIV 1/2 Routine 02/21/2024 2:40 PM VACATION PLANNER Abdominal pain, generalized Arthralgia, unspecified joint Morning joint stiffness Weight loss Fatigue, unspecified type TREPONEMA PALLIDUM Routine 02/21/2024 2: 36 PM VACATION PLANNER Abdominal pain, generalized Arthralgia, unspecified joint Morning joint stiffness Weight loss Fatigue, unspecified type LC HCV ANTIBODY RFX TO QUANT PCR Routine 03/23/2022 12:03 PM VACATION PLANNER Screen for STD (sexually transmitted disease) HPV HIGH RISK Routine 03/23/2022 11:36 AM VACATION PLANNER Cervical cancer screening Screening for cervical cancer [...] BACTERIAL VAGINOSIS BY JUDI (04/26/2024 3:24 PM VACATION PLANNER) FRANKLIN SPECIES Negative Negative 3:48 AM VACATION PLANNER [facility] FRANKLIN GLABRATA Negative Negative 04/27/2024 3:48 AM VACATION PLANNER [facility] TRICHOMONAS VVA Negative Negative 3:48 AM VACATION PLANNER [facility] BACTERIAL VAGINOSIS Negative Negative 04/27/2024 3:48 AM VACATION PLANNER [facility] TR[facility] LAB[facility]ORY Other VAGINAL SWAB / Unknown Non-Blood / Unknown 04/26/2024 3:24 PM VACATION PLANNER 04/26/2024 6:46 PM VACATION PLANNER Nallely MENON MICROBIOLOGY Final R esult [facility] 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 HSV 1 Negative Negative 04/21/2024 11:40 AM VACATION PLANNER [facility] HSV 2 Negative Negative 04/21/2024 11:40 AM VACATION PLANNER [facility] Other LESION SPECIMEN / Unknown Non-Blood / Unknown 04/19/2024 3:46 PM VACATION PLANNER 04/19/2024 3:46 PM VACATION PLANNER Narrative [facility] - 04/21/2024 11:40 AM VACATION PLANNER Results from the Aptima HSV 1 & 2 assay should be interpreted in conjunction with other clinical data available to the clinician. A negative Aptima HSV 1 & 2 assay result does not preclude a possible infection because results are dependent on adequate specimen collection. us Mahsa MENON MICROBIOLOGY Final R esult Performing Organization Address City/State/[facility] Co de Phone Number [facility] [address] [place] [address], * HSV TYPE 1/2 DNA QL PCR (BLOOD AND NON BLOOD) ([employer]) (04/19/2024 3:30 PM VACATION PLANNER) Pathologist [facility] SOURCE HSVPCR Blood [facility] ion-Me dFusion HSV 1 DNA Not Detected Not Detected Med[facility] usion-Me dFusion HSV 2 DNA Not Detected Not Detected [facility] usion-Me dFusion Comment: (Note) This test was developed and its analytical performance characteristics have been determined by [employer]. It has not been cleared or approved by the U.S. Food and Drug Administration. This assay has been validated pursuant to the CLIA regulations and is used for clinical purposes. MDF med fusion [address] [address],[address] [facility] [address] Romero Barry MD, PhD BLOOD SPECIMEN / Unknown 04/19/2024 3:30 PM VACATION PLANNER 04/19/2024 3:33 PM VACATION PLANNER us Mahsa MENON SEND OUTS Final R esult [facility] [address] [facility] [address] [place] [address], [facility] [address] [facility] [address], [address] [place] [address] * TREPONEMA PALLIDUM (04/19/2024 3:30 PM VACATION PLANNER) Only the most recent of2 resultswithin the time period is included. TREPONEMA PALLIDUM Non-Reacti ve Non-Reacti ve 04/19/2024 11:48 PM VACATION PLANNER [facility] TR[facility] LAB[facility]ATORY Blood BLOOD SPECIMEN / Unknown [facility] / Unknown 04/19/2024 3:30 PM VACATION PLANNER 04/19/2024 3:30 PM VACATION PLANNER Mahsa MENON SEND OUTS Final R esult [facility] [address] [place] [address], * ANTI HIV 1/2 (04/19/2024 3:30 PM VACATION PLANNER) Only the most recent of2 resultswithin the time period is included. HIV AG/AB, 4TH GEN NON-REACT YA NON-REACT YA [facility] Comment: HIV-1 antigen and HIV-1/HIV-2 antibodies [...] purpose. For additional information please refer to http://education.PadMatcher.Akvo/faq/BQM086 (This link is being provided for informational/ educational purposes only.) The performance of this assay has not been clinically validated in patients less than 2 years old. Blood BLOOD SPECIMEN / Unknown 04/19/2024 3:30 PM VACATION PLANNER 04/19/2024 3:33 PM VACATION PLANNER Mahsa MENON SEND OUTS Final R esult [facility] [address] [place] [address], [place] [phone] [facility] [address] [place] [address] * RESULT (REFLEX ONLY) (02/22/2024 6:45 AM VACATION PLANNER) Result 1 Comment 03/03/2024 2:07 PM VACATION PLANNER ESOTERIC TESTING ([facility]) Comment: No ova, cysts, or parasites seen. One negative specimen does not rule out the possibility of a parasitic infection. Stool STOOL SPECIMEN / Unknown Non-Blood / Unknown 02/22/2024 6:45 AM VACATION PLANNER 02/22/2024 9:34 AM VACATION PLANNER Narrative ESOTERIC TESTING (CET) - 03/03/2024 2:07 PM VACATION PLANNER Performed at: [address] [place] [address] [address], [place], [place] [id number] Hookman: GEETHA Rocha MD, Phone: [phone] Mahsa MENON LABORATORY Final R esult [facility] (CET) [address] [place] [address], * OVA + PARASITE EXAM (02/22/2024 6:45 AM VACATION PLANNER) Ova + Parasite Exam Final report 03/03/2024 2:07 PM VACATION PLANNER ESOTERIC TESTING ([facility]ET) Comment: These results were obtained using wet preparation(s) and trichrome stained smear. This test does not include testing for Cryptosporidium parvum, Cyclospora, or Microsporidia. Stool STOOL SPECIMEN / Unknown Non-Blood / Unknown 02/22/2024 6:45 AM VACATION PLANNER 02/22/2024 9:34 AM VACATION PLANNER Narrative [facility] (CET) - 03/03/2024 2:07 PM VACATION PLANNER Performed at: 01 - [facility] [address], [place], [place] [id number] Hookman: GEETHA Rocha MD, Phone: [phone] us Mahsa MENON SEND OUTS Final R esult [facility] (CET) [address] [place] [address] * STOOL PATHOGEN MULTIPLEX PCR PANEL (02/22/2024 6:45 AM VACATION PLANNER) Campylobacter NOT Detected NOT Detected 02/22/2024 10:44 PM VACATION PLANNER [facility] Salmonella NOT Detected NOT Detected 02/22/2024 10:44 PM VACATION PLANNER [facility] Shigella NOT Detected NOT Detected 02/22/2024 10:44 PM VACATION PLANNER [facility] Vibrio NOT Detected NOT Detected 02/22/2024 10:44 PM VACATION PLANNER [facility] Yersinia Enterocolitica NOT Detected NOT Detected 02/22/2024 10:44 PM VACATION PLANNER [facility] Shiga Toxin 1 NOT Detected NOT Detected 02/22/2024 10:44 PM VACATION PLANNER [facility] Shiga Toxin 2 NOT Detected NOT Detected 02/22/2024 10:44 PM VACATION PLANNER [facility] Norovirus NOT Detected NOT Detected 02/22/2024 10:44 PM VACATION PLANNER [facility] Rotavirus NOT Detected NOT Detected 02/22/2024 10:44 PM VACATION PLANNER [facility] Stool STOOL SPECIMEN / Unknown Non-Blood / Unknown 02/22/2024 6:45 AM VACATION PLANNER 02/22/2024 9:35 AM VACATION PLANNER [facility] - 02/22/2024 10:44 PM VACATION PLANNER This test is a Culture Independent Diagnostic Test (CIDT) therefore isolates are not available for susceptibility testing. Antibiotic treatment is often contraindicated and may be detrimental in cases of enteric infections, thus routine susceptibility testing is not recommended. Mahsa MENON MICROBIOLOGY Final R esult [facility] [address] [place] [address], [place] * SEDIMENTATION RATE (02/21/2024 2:40 PM VACATION PLANNER) Pathologist [facility] SED RATE BY MODIFIED WESTERGREN 6 < OR = 20 mm/h [facility] [place] Blood BLOOD SPECIMEN / Unknown 02/21/2024 2:40 PM VACATION PLANNER 02/21/2024 2:41 PM VACATION PLANNER Mahsa MENON HEMATOLOGY Final R esult Performing Organization Address City/[facility] Co de Phone Number [facility] [address] [place] [address], [facility] [address] [place] [address] * ANTINUCLEAR ANTIBODY BY IFA (02/21/2024 2:40 PM VACATION PLANNER) Pathologist [facility] CHANCE SCREEN, IFA NEGATIVE NEGATIVE [facility] Comment: CHANCE IFA is a first [...] AC-0: Negative International Consensus on CHANCE Patterns (https://doi.org/10.1515/kjye-3555-5875) For additional information, please refer to http://education.TaxiPixi.Akvo/faq/AJE031 (This link is being provided for informational/ educational purposes only.) Blood BLOOD SPECIMEN / Unknown 02/21/2024 2:40 PM VACATION PLANNER 02/21/2024 2:41 PM VACATION PLANNER Mahsa MENON CHEMISTRY Final R esult Performing Organization Address City/[facility]/ZIP Co de Phone Number [facility] [address] [place] [address], [place] [phone] [facility] [address] [place] [address] * CYCLIC CITRULLINE PEPTIDE (02/21/2024 2:40 PM VACATION PLANNER) Pathologist [facility] CYCLIC CITRULLINATED PEPTIDE (CCP) AB (IGG) <16 UNITS [facility] Comment: Reference Range Negative: <20 Weak Positive: 20-39 Moderate Positive: 40-59 Strong Positive: >59 Blood BLOOD SPECIMEN / Unknown 02/21/2024 2:40 PM VACATION PLANNER 02/21/2024 2:41 PM VACATION PLANNER Mahsa MENON SEND OUTS Final R esult Performing Organization Address [facility] Co de Phone Number [facility] [address] [place] [address], [place] [phone] [facility] [address] [place] [address] * TSH (02/21/2024 2:40 PM VACATION PLANNER) [facility] TSH 0.41 mIU/L [facility] Comment: Reference Range > or = 20 Years 0.40-4.50 Ranges First trimester 0.26-2.66 Second trimester 0.55-2.73 Third trimester 0.43-2.91 Blood BLOOD SPECIMEN / Unknown 02/21/2024 2:40 PM VACATION PLANNER 02/21/2024 2:41 PM VACATION PLANNER Mahsa MENON CHEMISTRY Final R esult Performing Organization Address City/[facility]/ZIP Co de Phone Number [facility] [address] [place] [address], [facility] [address] [place] [address] * IRON PLUS IRON BINDING CAP (02/21/2024 2:40 PM VACATION PLANNER) [facility] IRON, TOTAL 77 40 - 190 mcg/dL [facility] IRON BINDING CAPACITY 295 250 - 450 mcg/dL (calc) [facility] % SATURATION 26 16 - 45 % (calc) [facility] Blood BLOOD SPECIMEN / Unknown 02/21/2024 2:40 PM VACATION PLANNER 02/21/2024 2:41 PM VACATION PLANNER Mahsa MENON CHEMISTRY Final R esult [facility] [address] [place] [address], [facility] [address] [place] [address] * LYME SCREEN W/REFLEX (02/21/2024 2:40 PM VACATION PLANNER) [facility] LYME AB, SCREEN < or = 0.90 index [facility], Comment: REFERENCE RANGE: < OR = [...] BLOOD SPECIMEN / Unknown 02/21/2024 2:40 PM VACATION PLANNER 02/21/2024 2:41 PM VACATION PLANNER Mahsa MENON SEND OUTS Final R esult Performing Organization Address [facility]/ZIP Co de Phone Number [facility] [address] [place] [address], [facility]/Clements [facility], [address] [place] [address] * RA QUANTITATIVE (02/21/2024 2:40 PM VACATION PLANNER) RHEUMATOID FACTOR <10 <14 IU/mL [facility] Blood BLOOD SPECIMEN / Unknown 02/21/2024 2:40 PM VACATION PLANNER 02/21/2024 2:41 PM VACATION PLANNER Mahsa MENON SEND OUTS Final R esult Performing Organization Address [facility] Co de Phone Number [facility] [address] [place] [address], [place] [phone] [facility] [address] [place] [address] * C-REACTIVE PROTEIN (02/21/2024 2:40 PM VACATION PLANNER) C-REACTIVE PROTEIN <3.0 <8.0 mg/L [facility] Blood BLOOD SPECIMEN / Unknown 02/21/2024 2:40 PM VACATION PLANNER 02/21/2024 2:41 PM VACATION PLANNER Mahsa MENON CHEMISTRY Final R esult Performing Organization Address City/[facility]/ZIP Co de Phone Number [facility] [address] [facility] [place] [address], [place] [phone] [facility] [address] [place] [address] * CBC AND DIFFERENTIAL (02/21/2024 2:40 PM VACATION PLANNER) [facility] WHITE BLOOD CELL COUNT 7.0 3.8 - [...] COUNT 245 140 - 400 Thousand/u L [facility] MPV 11.0 7.5 - [...] BLOOD SPECIMEN / Unknown 02/21/2024 2:40 PM VACATION PLANNER 02/21/2024 2:41 PM VACATION PLANNER Mahsa MENON HEMATOLOGY Final R esult [facility] [address] [place] [address], [place] [phone] [facility] [address] [place] [address] * T4,FREE (02/21/2024 2:40 PM VACATION PLANNER) T4, FREE 1.3 0.8 - 1.8 ng/dL [facility] Blood BLOOD SPECIMEN / Unknown 02/21/2024 2:40 PM VACATION PLANNER 02/21/2024 2:41 PM VACATION PLANNER Mahsa MENON CHEMISTRY Final R esult Performing Organization Address City/[facility]/ZIP Co de Phone Number [facility] [address] [place] [address], [place] [phone] [facility] [address] [place] [address] * FERRITIN (02/21/2024 2:40 PM VACATION PLANNER) Pathologist [facility] FERRITIN 62 16 - 154 ng/mL [facility] Blood BLOOD SPECIMEN / Unknown 02/21/2024 2:40 PM VACATION PLANNER 02/21/2024 2:41 PM VACATION PLANNER Mahsa MENON CHEMISTRY Final R esult [facility] [address] [place] [address], [place] [phone] [facility] [address] [place] [address] * COMP METABOLIC PANEL (02/21/2024 2:40 PM VACATION PLANNER) GLUCOSE 79 65 - 99 mg/dL [facility] Comment: Fasting reference interval UREA NITROGEN (BUN) [...] ALKALINE PHOSPHATASE 58 31 - 125 U/L [facility] AST 15 10 - 30 U/L [facility] ALT 11 6 - 29 U/L [facility] Blood BLOOD SPECIMEN / Unknown 02/21/2024 2:40 PM VACATION PLANNER 02/21/2024 2:41 PM VACATION PLANNER us Mahsa MENON CHEMISTRY Final R esult [facility] [address] [place] [address], [facility] [address] [place] [address] * LC HCV ANTIBODY RFX TO QUANT PCR (03/23/2022 12:03 PM VACATION PLANNER) HCV Ab <0.1 0.0 - 0.9 s/co ratio 03/25/2022 9:06 PM VACATION PLANNER ESOTERIC TESTING ([facility]) Blood BLOOD SPECIMEN / Unknown Venipuncture / Unknown 03/23/2022 12:03 PM VACATION PLANNER 03/23/2022 12:05 PM VACATION PLANNER Narrative ESOTERIC TESTING ([facility]) - 03/25/2022 9:06 PM VACATION PLANNER Performed at: [address] [place] [id number] Hookman: Pedro Fields MD, Phone: [phone] Mahsa MENON LABORATORY Final R esult Performing Organization Address City/[facility] Co de Phone Number ESOTERIC TESTING ([facility]) [address] [place] [address] * HPV HIGH RISK (03/23/2022 11:36 AM VACATION PLANNER) Pathologist [facility] TYPE 16 Negative Negative 03/26/2022 2:05 PM VACATION PLANNER [facility] LAB[facility] TYPE 18 Negative Negative 03/26/2022 2:05 PM VACATION PLANNER [facility] OTHER HIGH RISK TYPES Negative Negative 03/26/2022 2:05 PM VACATION PLANNER [facility] Other (Cervical) Non-Blood / Unknown 03/23/2022 11:36 AM VACATION PLANNER 03/24/2022 9:57 AM VACATION PLANNER Narrative [facility] - 03/26/2022 2:05 PM VACATION PLANNER HPV types 16, 18, 31, 33, 35, 39, 45, 51, 52, 56, 58, 59, 66 and 68 DNA were undetectable or below the pre-set threshold. Methodology: Jackie Porsha 4800 HPV Test Mahsa MENON MICROBIOLOGY Final R esult [facility] [address] [place] [address], [place] from Last 3 Months or Most Recently Relevant to Health Maintenance Insurance [facility] Member Subscriber Plan / Payer (Ef fective 2017-Present) Name:Jayde Bee Relation to Subscriber:Employee Name:[employer] Date of :2002 (Home) Address: [address] [place] [address] Payer ID:Not on file Group ID:Not on file Type:Not on file Address: [address] [facility] [place] [address] [place] [phone] [facility] Member Subscriber Plan / Payer (Ef fective 2017-Present) Name:Jayde Bee Relation to Subscriber:Employee Name:[employer] [facility] Date of :2002 (Home) Address: [address] [place] [address] Payer ID:Not on file Group ID:Not on file Type:Not on file Address: [address] [facility] [place] [address] [place] [phone] [place] [id number] [facility] [employer] [address] [place] [id number] [address] [place] [id number] Advance Directives * Full Code (Latest Code Status on File) Date Activated Date Inactivated Comments 09/24/2013 3:47 PM 09/25/2013 12:39 AM * Full Code Date Activated Date Inactivated Comments 09/11/2013 6:31 PM 09/24/2013 3:47 PM * Full Code Date Activated Date Inactivated Comments 12/13/2012 2:17 AM 12/15/2012 9:12 PM Care Teams Kiln Head House Operator Relationship Specialty Start Date End Date Mahsa Abbott PA [address] [place] [address] PCP - General Family Practice 03/23/12
== END 2024-05-19 16:45 | disposition home or self-care (01) ==
LOC: ED 16:12
PROVIDERS: Emergency Provider Family Medicine; PCP Physician Assistant Medical
DX: L03.115 Cellulitis of right lower limb (principal)
CPT/HCPCS: 99283

== ENCOUNTER 2024-07-16 14:04 | Emergency (ER) | payer OTHER, SELFPAY ==
--- OUTSIDE RECORDS SUMMARY | 2024-07-16 14:07 | XMS_ITS | Clinical Summary ---
Author Organization [facility] Address [address] [place] [address] Care Team Providers Care Distribution Associate Name Role Phone Mahsa Abbott Primary Care [...] overdose, initial encounter,Opioid abuse (HC) Inhale 1 [place] into affected nostril(s) each time if needed for Patient Diff To Arouse or Resp Rate < 8 / min. Additional doses may be given every 2 to 3 minutes until emergency medical assistance arrives. 2 Each 2 3:41 PM ISOTOPE HYDROLOGIST 01/22/20 22 Active LORazepam (ATIVAN) 0.5 mg [...] tongue every 8 hours if needed for Nausea/Vomiting . 30 Tablet 12/31/19 23 Active Additional Information Patient not taking.Reported on 07/13/2024 SUMAtriptan (IMITREX) 100 mg tabletIndications: Headache syndrome GIVE AT MINIMUM OF 2 HOURS APART. MAX DOSE 200MG PER 24 HOURS. TAKE 1 TABLET BY MOUTH ONE TIME NEEDED FOR MIGRAINE 10 Tablet 08/28/19 24 Active valACYclovir (VALTREX) 1 gram tabletIndications: Herpes simplex Take 1 Tablet (1 g) by mouth two times daily. 60 Tablet 1 04/19/19 25 Active Additional Information Patient not taking.Reported on 07/13/2024 amoxicillin-clavul anate 875-125 mg tabletIndications: Tooth infection Take 1 Tablet by mouth every 12 hours for 10 days. 20 Tablet 07/01/19 25 025 Hospital, Clinic, or Other Facility Administered Medication Ordered Dose Route Frequency Start Date End Date Status medroxyPROGESTERone acetate (contraceptive) (DEPO-PROVERA) injection 150 mgIndications:Encount er for contraceptive management, unspecified type 150 mg IM Q 3 MONTHS (12 WEEKS) 07/01/2024 06/02/2025 Active Active Problems Problem Noted Date Diagnosed [...] within the uterus. Yolk sac is identified. [place]-rump length measures 1.35 cm consistent with a [...] Encounters Date Type Department Care Team Description 07/13/2024 9:30 AM CDT Office Visit [facility] [address] [place] [address] Mitul Solitario MD Consult (Throat & stomach burning started 2 years ago - now whole body quiroz, dental infections, yeast infection (current)) 07/13/2024 Travel 07/11/2024 Telephone [facility] [address] [place] [address] Mahsa Abbott PA Results 07/11/2024 Telephone [facility] [address] [place] [address] Mahsa Abbott PA Other (patient is not feeling the medication is helping) 07/10/2024 11:29 AM CDT - 07/10/2024 11:59 PM CDT Hospital Encounter [facility] [address] [place] [address] Mahsa Abbott PA Enlarged thyroid 07/10/2024 Travel 06/30/2024 3:20 PM CDT Office Visit [facility] [address] [place] [address] Mahsa Abbott PA Contraception (Wants to start depo); Follow Up (Rechecking from issues from last visit, nothing is better) 06/30/2024 Travel 05/19/2024 Refill [facility] [address] [place] [address] Mahsa Abbott PA Refill Request (Diflucan) 05/19/2024 Nurse Triage [facility] [address] [place] [address] Mahsa Abbott PA Questions (Right leg. ) 05/17/2024 4:00 PM CDT Ancillary Procedure [facility] [address] [place] [address] 05/17/2024 3:45 PM CDT Ancillary Procedure [facility] [address] [facility] [address] 05/17/2024 2:40 PM CDT Office Visit [facility] [address] [facility] [place] [address] Mahsa Abbott PA Concerns ([place] a lump on R side of face, [...] the antibiotics) 05/17/2024 Travel 04/26/2024 2:10 PM ISOTOPE HYDROLOGIST Office Visit [facility] [address] [place] [address] Nallely Swartz PA Rectal Problem (foul smelling odor from rectum, has had gi issues since oral sex, fatigue, jaw issues feels like it is infected, states she smells like fish from her rectum, now having stomach pain, vaginal discharge, and odor and burning/ongoing for 2 years ) 04/26/2024 Travel 04/19/2024 2:20 PM ISOTOPE HYDROLOGIST Office Visit [facility] [address] [place] [address] Mahsa Abbott PA Derm Problem (herpes) 04/19/2024 Travel from Last 3 Months Immunizations Immunization [...] Types Packs/Day Years Used Date Smoking Tobacco: Every Day Cigarettes 0.5 18.1 Started: 06/17/2006 Smokeless Tobacco: Never Tobacco Cessation:Ready to Q uit: Not Asked; Counseling Given: Not Answered Alcohol Use Standard Drinks/Week Comments Yes 0 [...] on file Legal Sex Female 5:21 AM ISOTOPE HYDROLOGIST Gender Identity Not on file Sexual Orientation [...] oz) F 9 9 BLAED E,BG Delivery Location:[facility] Last Filed Vital Signs Vital Sign Reading Time Taken Comments Blood Pressure 118/74 07/13/2024 9:44 AM CDT Pulse 81 07/13/2024 9:44 AM CDT Temperature 36.7 C (98.1 F) 06/30/2024 3:23 PM CDT Respiratory Rate 18 04/26/2024 2:30 PM ISOTOPE HYDROLOGIST Oxygen Saturation 100% 07/13/2024 9:44 AM CDT Inhaled Oxygen Concentration - - Weight 52.2 kg (115 lb) 07/13/2024 9:44 AM CDT Height 157.5 cm (5' 2) 03/23/2022 11:14 AM ISOTOPE HYDROLOGIST Body Mass Index 21.03 03/23/2022 11:14 AM ISOTOPE HYDROLOGIST Plan of Treatment Upcoming Encounters Date Type Department Care Team (Late st Contact Info) Description 08/14/2024 3:20 PM CDT Office Visit [facility] [address] [facility] [place] [address] Mahsa Abbott PA [address] [place] [address] Health Maintenance Due Date Last Done Comments Pneumococcal series for age 6-49 (1 of 2 - PCV) 2012 Depression screening for age 12+ 06/18/2021 06/18/2020, 06/17/2020, 02/14/2020, Additional history exists BMI (ht and wt on same day) for age 18+ 03/23/2023 03/23/2022, 02/14/2021, 02/13/2019, Additional history exists COVID-19 vaccine series ( - season) 2023 Influenza Vaccine (Season Ended) 2024 03/04/2020, 10/27/2018, 12/20/2016, Additional history exists Pap test for age 21-65 03/23/2027 , 03/23/2022, 07/12/2018, Additional history exists Tetanus booster 11/04/2030 11/04/2020, 02/10/2016, 12/24/2005 Tdap Completed 11/04/2020, 12/24/2005 Hepatitis C screening for ag e 18-79 Completed 03/23/2022, 05/13/2021, 03/04/2020, Additional history exists HIV for age 15-65 Completed 04/19/2024, , 03/23/2022, Additional history exists Procedures Procedure Name Priority Date/Time Associated Diagnosis Comments CELIAC CASCADE PANEL Routine 07/13/2024 10:30 AM CDT Abdominal pain, epigastric Diarrhea, unspecified type US THYROID/PARATHYROI D Routine 07/10/2024 11:51 AM CDT Enlarged thyroid URINE POCT Routine 06/30/2024 3:52 PM CDT Encounter for contraceptive management, unspecified type CT SINUS WO STAT 05/17/2024 3:53 PM CDT Sinus pain XR CHEST 2 VIEWS PA AND LATERAL Routine 05/17/2024 3:43 PM CDT SOB (shortness of breath) TRICHOMONAS, FRANKLIN, AND BACTERIAL VAGINOSIS BY JUDI Routine 04/26/2024 3:24 PM ISOTOPE HYDROLOGIST Vaginal odor 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) Routine 04/19/2024 3:46 PM ISOTOPE HYDROLOGIST Skin lesion 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) Routine 04/19/2024 3:46 PM ISOTOPE HYDROLOGIST Skin lesion TREPONEMA PALLIDUM Routine 04/19/2024 3: 30 PM ISOTOPE HYDROLOGIST Screen for STD (sexually transmitted disease) ANTI HIV 1/2 Routine 04/19/2024 3:30 PM ISOTOPE HYDROLOGIST Screen for STD (sexually transmitted disease) HSV TYPE 1/2 DNA QL PCR (BLOOD AND NON BLOOD) (QUEST) Routine 04/19/2024 3:30 PM ISOTOPE HYDROLOGIST Screen for STD (sexually transmitted disease) LC HCV ANTIBODY RFX TO QUANT PCR Routine 03/23/2022 12:03 PM ISOTOPE HYDROLOGIST Screen for STD (sexually transmitted disease) HPV HIGH RISK Routine 03/23/2022 11:36 AM ISOTOPE HYDROLOGIST Cervical cancer screening Screening for cervical cancer from Last 3 Months or Most Recently Relevant to Health Maintenance Results * CELIAC CASCADE PANEL (07/13/2024 10:30 AM CDT) CELIAC DISEASE COMPREHENSIVE PANEL INTERPRETATION [facility] [place] Comment: No serological evidence of celiac disease. tTG IgA may normalize in individuals with celiac disease who maintain a gluten-free diet. Consider HLA DQ2 and DQ8 testing to rule out celiac disease. Celiac disease is extremely rare in the absence of DQ2 or DQ8. TISSUE TRANSGLUTAMINASE AB, IGA <1.0 U/mL [facility] [place] Comment: Value Interpretation ----- <15.0 Antibody not detected > or = 15.0 Antibody detected IMMUNOGLOBULIN A 174 47 - 310 mg/dL [facility] [place] Blood BLOOD SPECIMEN / Unknown 07/13/2024 10:30 AM CDT 07/13/2024 10:30 AM CDT Mitul Solitario MD SEND OUTS Final Res ult [employer] [facility] [address] [place] [address], [email or web address] [facility] [address] [place] [address] * US THYROID/PARATHYROID (07/10/2024 11:51 AM CDT) Anatomical Region Laterality Modality THYROID Ultrasound 07/10/2024 11:5 8 AM CDT Impressions 07/10/2024 11:58 AM CDT Normal thyroid ultrasound. Dictated by Vanessa Roy MD @ 07/10/2024 11:58:48 AM (Electronically Signed) Narrative 07/10/2024 11:58 AM CDT For Patients: As a result of the Cures Act, medical imaging exams and procedure reports are released immediately into your electronic medical record. You may view this report before your referring provider. If you have questions, please contact your health care provider. INDICATION: Enlarged thyroid TECHNIQUE: Ultrasound thyroid with langley-scale and color Doppler analysis. COMPARISON: None FINDINGS: The thyroid gland demonstrates normal uniform echogenicity and smooth contour. Right lobe: Measures 5.5 x 1.3 x 1.3 cm. No nodules, masses, or suspicious calcifications. Color Doppler analysis demonstrates normal vascularity. Left lobe: Measures 5.6 x 1.5 x 0.9 cm. No nodules, masses, or suspicious calcifications. Color Doppler analysis demonstrates normal vascularity. The isthmus is normal (0.2 cm). No evidence of lymphadenopathy of parathyroid mass. Procedure Note Silviano Roy MD - 07/10/2024 For Patients: As a result of the Cures Act, medical imagingexams and procedure reports are released immediately into your electronicmedical record. You may view this report before your referring provider.If you have questions, please contact your health care provider. INDICATION: Enlarged thyroid TECHNIQUE: Ultrasound thyroid with langley-scale and color Doppler analysis. COMPARISON: None FINDINGS: The thyroid gland demonstrates normal uniform echogenicity and smoothcontour. Right lobe: Measures 5.5 x 1.3 x 1.3 cm. No nodules, masses, or suspiciouscalcifications. Color Doppler analysis demonstrates normal vascularity. Left lobe: Measures 5.6 x 1.5 x 0.9 cm. No nodules, masses, or suspiciouscalcifications. Color Doppler analysis demonstrates normal vascularity. The isthmus is normal (0.2 cm). No evidence of lymphadenopathy of parathyroid mass. IMPRESSION: Normal thyroid ultrasound. Dictated by Vanessa Roy MD @ 07/10/2024 11:58:48 AM (Electronically Signed) us Mahsa MENON US Final R esult * POCT Urine (06/30/2024 3:52 PM CDT) POC HCG URINE NEGATIVE NEGATIVE [facility] Urine URINE SPECIMEN / Unknown 06/30/2024 3:52 PM CDT 06/30/2024 3:52 PM CDT Mahsa MENON URINE Final R esult [facility] [address] [place] [address], [facility] [address] [place] [address] * CT SINUS WO (05/17/2024 3:53 PM [...] MD @ 05/17/2024 4:03:53 PM (Electronically Signed) us Mahsa Abbott PA CT Final R esult * XR CHEST [...] MD @ 05/17/2024 4:11:30 PM (Electronically Signed) us Mahsa MENON GENERAL IMAGING Final R esult * TRICHOMONAS, FRANKLIN, AND BACTERIAL VAGINOSIS BY JUDI (04/26/2024 3:24 PM ISOTOPE HYDROLOGIST) FRANKLIN SPECIES Negative Negative 5 3:48 AM ISOTOPE HYDROLOGIST [facility] FRANKLIN GLABRATA Negative Negative 04/27/2024 3:48 AM ISOTOPE HYDROLOGIST [facility] TRICHOMONAS VVA Negative Negative 5 3:48 AM ISOTOPE HYDROLOGIST [facility] BACTERIAL VAGINOSIS Negative Negative 04/27/2024 3:48 AM ISOTOPE HYDROLOGIST [facility] Other VAGINAL SWAB / Unknown Non-Blood / Unknown 04/26/2024 3:24 PM ISOTOPE HYDROLOGIST 04/26/2024 6:46 PM ISOTOPE HYDROLOGIST Nallely MENON MICROBIOLOGY Final R esult Performing Organization Address City/[facility]/ZIP Co de Phone Number [facility] [address] [place] [address], [place] * 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) (04/19/2024 3:46 PM ISOTOPE HYDROLOGIST) Only the most recent of2 resultswithin the time period is included. Pathologist [facility] HSV 1 Negative Negative 04/21/2024 11:40 AM ISOTOPE HYDROLOGIST [facility] HSV 2 Negative Negative 04/21/2024 11:40 AM ISOTOPE HYDROLOGIST [facility] Other LESION SPECIMEN / Unknown Non-Blood / Unknown 04/19/2024 3:46 PM ISOTOPE HYDROLOGIST 04/19/2024 3:46 PM ISOTOPE HYDROLOGIST Narrative [facility] - 04/21/2024 11:40 AM ISOTOPE HYDROLOGIST Results from the Aptima HSV 1 & 2 assay should be interpreted in conjunction with other clinical data available to the clinician. A negative Aptima HSV 1 & 2 assay result does not preclude a possible infection because results are dependent on adequate specimen collection. Mahsa MENON MICROBIOLOGY Final R esult Performing Organization Address City/[facility] Co de Phone Number [facility] [address] [place] [address], [place] * HSV TYPE 1/2 DNA QL PCR (BLOOD AND NON BLOOD) (QUEST) (04/19/2024 3:30 PM ISOTOPE HYDROLOGIST) Pathologist [facility] SOURCE HSVPCR Blood [facility] HSV 1 DNA Not Detected Not Detected [facility] HSV 2 DNA Not Detected Not Detected [facility] Comment: (Note) This test was developed and its analytical performance characteristics have been determined by [employer]. It has not been cleared or approved by the U.S. Food and Drug Administration. This assay has been validated pursuant to the CLIA regulations and is used for clinical purposes. MD med fusion [address] [facility] [address] [place] [address] Romero Barry MD, PhD BLOOD SPECIMEN / Unknown 04/19/2024 3:30 PM ISOTOPE HYDROLOGIST 04/19/2024 3:33 PM ISOTOPE HYDROLOGIST Mahsa MENON SEND OUTS Final R esult [facility] [address] [place] [phone], [facility] [address] [place] [address], [address] [place] [address] * TREPONEMA PALLIDUM (04/19/2024 3:30 PM ISOTOPE HYDROLOGIST) TREPONEMA PALLIDUM Non-Reacti ve Non-Reacti ve 04/19/2024 11:48 PM ISOTOPE HYDROLOGIST [facility] TRAL LABORATORY Blood BLOOD SPECIMEN / Unknown [facility] Collect / Unknown 04/19/2024 3:30 PM ISOTOPE HYDROLOGIST 04/19/2024 3:30 PM ISOTOPE HYDROLOGIST Mahsa MENON SEND OUTS Final R esult [facility] [address] [place] [address], * ANTI HIV 1/2 (04/19/2024 3:30 PM ISOTOPE HYDROLOGIST) HIV AG/AB, 4TH GEN NON-REACT YA NON-REACT YA [facility] Comment: HIV-1 antigen and HIV-1/HIV-2 antibodies were [...] purpose. For additional information please refer to http://education.JuMei.com/faq/BSR169 (This link is being provided for informational/ educational purposes only.) The performance of this assay has not been clinically validated in patients less than 2 years old. Blood BLOOD SPECIMEN / Unknown 04/19/2024 3:30 PM ISOTOPE HYDROLOGIST 04/19/2024 3:33 PM ISOTOPE HYDROLOGIST Mahsa MENON SEND OUTS Final R esult Performing Organization Address City/[facility]/ZIP Co de Phone Number [employer] [facility] [address] [place] [address], [facility] [address] [place] [phone] * LC HCV ANTIBODY RFX TO QUANT PCR (03/23/2022 12:03 PM ISOTOPE HYDROLOGIST) HCV Ab <0.1 0.0 - 0.9 s/co ratio 03/25/2022 9:06 PM ISOTOPE HYDROLOGIST [facility] Blood BLOOD SPECIMEN / Unknown Venipuncture / Unknown 03/23/2022 12:03 PM ISOTOPE HYDROLOGIST 03/23/2022 12:05 PM ISOTOPE HYDROLOGIST Narrative [facility] ([facility] - 03/25/2022 9:06 PM ISOTOPE HYDROLOGIST Performed at: [address] [place] [id number] Developer Architect: Pedro Fields MD, Phone: [phone] Mahsa MENON LABORATORY Final R esult [facility] ([facility] [address] [place] [address], * HPV HIGH RISK (03/23/2022 11:36 AM ISOTOPE HYDROLOGIST) TYPE 16 Negative Negative 03/26/2022 2:05 PM ISOTOPE HYDROLOGIST [facility] TRAL LABORATORY TYPE 18 Negative Negative 03/26/2022 2:05 PM ISOTOPE HYDROLOGIST [facility] TR[facility] OTHER HIGH RISK TYPES Negative Negative 03/26/2022 2:05 PM ISOTOPE HYDROLOGIST [facility] TR[facility] LABORATORY Other (Cervical) Non-Blood / Unknown 03/23/2022 11:36 AM ISOTOPE HYDROLOGIST 03/24/2022 9:57 AM ISOTOPE HYDROLOGIST Narrative [facility] - 03/26/2022 2:05 PM ISOTOPE HYDROLOGIST HPV types 16, 18, 31, 33, 35, 39, 45, 51, 52, 56, 58, 59, 66 and 68 DNA were undetectable or below the pre-set threshold. Methodology: Qiandao Porsha 4800 HPV Test us Mahsa MENON MICROBIOLOGY Final R esult [facility] [address] [place] [address], from Last 3 Months or Most Recently Relevant to Health Maintenance [place] [address] [address] [facility] Member Subscriber Plan / Payer (Ef fective 2017-Present) Name:Jayde Bee Relation to Subscriber:Employee Name:[employer] Date of :2002 (Home) Address: [place] [place] [address] Payer ID:Not on file Group ID:Not on file Type:Not on file Address: [address] [facility] [address] [place] [address] [place] [address] [address] [place] [address] [facility] Member Subscriber Plan / Payer (Ef fective 2017-Present) Name:Jayde Bee Relation to Subscriber:Employee Name:[employer] [facility] [employer] Date of :2002 (Home) Address: [address] [place] [address] Payer ID:Not on file Group ID:Not on file Type:Not on file Address: [address] [facility] [address] [place] [address] [address] [address] [facility] [employer] [address] [place] [id number] [address] [place] [id number] Advance Directives * Full Code (Latest Code Status on File) Date Activated Date Inactivated Comments 09/24/2013 3:47 PM 09/25/2013 12:39 AM * Full Code Date Activated Date Inactivated Comments 09/11/2013 6:31 PM 09/24/2013 3:47 PM * Full Code Date Activated Date Inactivated Comments 12/13/2012 2:17 AM 12/15/2012 9:12 PM Care Teams Distribution Associate Relationship Specialty Start Date End Date Mahsa Abbott PA [address] [place] [address] [address] PCP - General Family Practice 03/23/12
[2024-07-16 14:56] VITALS: BP 141/95; PULSE 86; RESP 18; TEMP 37; O2SAT 100; BMI 21.0
--- NOTE | 2024-07-16 16:15 | ED.GENADULT ---
HPI - General Adult General Time Seen by Provider: 16:15 Date Seen: 07/16/24 Chief complaint: Jaw Injury/Pain Stated complaint: Jaw Cyst Pain Time Seen by Provider: 07/16/24 16:15 Source: patient Mode of arrival: ambulatory Limitations: no limitations Related Data Home Medications ?Medication ?Instructions ?Recorded ?Confirmed sumatriptan succinate 100 mg tablet 100 mg PO DAILY PRN migraine 05/19/24 07/16/24 Allergies Allergy/AdvReac Type Severity Reaction Status Date / Time No Known Drug Allergies Allergy Verified 07/16/24 15:06 PFSH PFS Social History Smoking Status: Current every day smoker Do you use any of these nicotine containing products: E-Cigarettes and Vaping Products Second hand tobacco smoke exposure: No How often do you have a drink containing alcohol: never AUDIT-C Alcohol total score: 0 Non-prescribed substance use: marijuana (any form) service: No Exam Const: Vital Signs, click to edit/add: Vital Signs - 24 hr 07/16/24 14:56 Temperature 98.6 F Pulse Rate [Pulse Oximeter] 86 Respiratory Rate 18 Blood Pressure [Ri ght Upper Arm] 141/95 H Pulse Oximetry 100 Oxygen Delivery Me thod Room Air Course Vital Signs Vital signs: Initial Vital Signs Temperature 98.6 F 07/16/24 14:56 Temperature Source Temporal Artery Scan 07/16/24 14:56 Pulse Rate 86 07/16/24 14:56 Respiratory Rate 18 07/16/24 14:56 Blood Pressure 141/95 H 07/16/24 14:56 Blood Pressure Mean 110 H 07/16/24 14:56 Blood Pressure Position Sitting 07/16/24 14:56 Pulse Oximetry 100 07/16/24 14:56 Oxygen Delivery Method Room Air 07/16/24 14:56 Vital Signs Temperature 98.6 F 07/16/24 14:56 Pulse Rate 86 07/16/24 14:56 Respiratory Rate 18 07/16/24 14:56 Blood Pressure 141/95 H 07/16/24 14:56 Pulse Oximetry 100 07/16/24 14:56 Oxygen Delivery Method Room Air 07/16/24 14:56 Temperature 98.6 F 07/16/24 14:56 Pulse Rate 86 07/16/24 14:56 Respiratory Rate 18 07/16/24 14:56 Blood Pressure 141/95 H 07/16/24 14:56 Pulse Oximetry 100 07/16/24 14:56 Oxygen Delivery Method Room Air 07/16/24 14:56 Discharge Plan Discharge Prescriptions: No Action sumatriptan succinate 100 mg tablet 100 mg PO DAILY PRN (Reason: migraine) Follow Up/Referrals: Mahsa Abbott PA-C [Primary Care Provider] -
[2024-07-16 16:55] VITALS: BP 143/95; PULSE 76; RESP 16; O2SAT 100
[2024-07-16 17:16] LABS: Basophils Absolute Auto 0.04 K/uL (0.00-0.30); Basophils Percent Auto 0.5 % (0.0-3.0); Eosinophils Absolute Auto 0.06 K/uL (0.00-0.50); Eosinophils Percent Auto 0.7 % (0.0-7.0); Hematocrit* 40.4 % (33.0-51.0); Hemoglobin* 13.8 gm/dL (12.0-16.0); Immature Granulocytes Abs Auto 0.01 K/uL (0.00-0.30); Immature Granulocytes Pct Auto 0.1 %; Lymphocytes Absolute Auto 2.66 K/uL (0.90-2.90); Lymphocytes Percent Auto 31.3 % (20-44); Mean Corpuscular HGB Conc 34 gm/dL (32-36); Mean Corpuscular Hemoglobin 32 pg (26-34); Mean Corpuscular Volume 94 fL (80-100); Monocytes Percent Auto 5.8 % (0.0-11.0); Neutrophils Absolute Auto 5.25 K/uL (1.7-7.0); Neutrophils Percent Auto 61.6 % (42.0-72.0); Platelet Count* 234 K/uL (140-440); RDW Coefficient of Variation % 12.3 % (11.5-15.5); Red Blood Count* 4.28 m/uL (4.00-5.20); White Blood Count* 8.51 K/uL (4.50-11.00)
--- NOTE | 2024-07-16 17:21 | CRLHL7_ITS ---
For Patients: As a result of the Century Cures Act, medical imaging exams and procedure reports are released immediately into your electronic medical record. You may view this report before your referring provider. If you have questions, please contact your health care provider. Indication: Concern for swelling to right side of face. Technique: CT images of the neck following intravenous contrast. Comparison: None. Findings: The nasopharynx, oropharynx, hypopharynx, and larynx are widely patent and without enhancing lesions. No thickening of the epiglottis or retropharyngeal edema. No peripherally enhancing collection to suggest abscess. No concerning inflammatory stranding. No enhancing lesions in the oral cavity or floor of. The parotid and submandibular glands are unremarkable. The thyroid gland is unremarkable. Borderline enlarged right submental lymph node may be reactive. No pathologically enlarged lymph nodes. Limited images through the brain and without pathologic intracranial enhancement. The visualized paranasal sinuses and mastoid air cells are clear. No aggressive osseous lesions. No concerning opacities in the visualized lungs. Impression: 1. No mass or fluid collection in the neck. No concerning inflammatory stranding. 2. Borderline enlarged right submental lymph node is nonspecific, though may be reactive. Please note that all CT scans at this facility use dose modulation, iterative reconstruction, and/or weight-based dosing when appropriate to reduce radiation dose to as low as reasonably achievable. Dictated by Ben Siegel MD @ 07/16/2024 5:59:18 PM (Electronically Signed)
--- OUTSIDE RECORDS SUMMARY | 2024-07-16 17:23 | XMS_ITS | Clinical Summary ---
Author Organization [facility] Address [address] [place] [address] Care Team Providers Care Cnc Grinder Name Role Phone Mahsa Abbott Primary Care [...] overdose, initial encounter,Opioid abuse (HC) Inhale 1 [place] into affected nostril(s) each time if needed for Patient Diff To Arouse or Resp Rate < 8 / min. Additional doses may be given every 2 to 3 minutes until emergency medical assistance arrives. 2 Each 2 3:41 PM TRACK REPAIR LABORER 01/22/20 22 Active LORazepam (ATIVAN) 0.5 mg [...] within the uterus. Yolk sac is identified. Nimmons-rump length measures 1.35 cm consistent with a [...] Description 07/13/2024 9:30 AM CDT Office Visit [facility] [address] [facility] [place] [address] Mitul Solitario MD Consult (Throat & stomach burning started 2 years ago - now whole body quiroz, dental infections, yeast infection (current)) 07/13/2024 Travel 07/11/2024 Telephone [facility] [address] [facility] [place] [address] Mahsa Abobtt PA Results 07/11/2024 Telephone [facility] [address] [facility] [place] [address] Mahsa Abbott PA Other (patient is not feeling the medication is helping) 07/10/2024 11:29 AM CDT - 07/10/2024 11:59 PM CDT Hospital Encounter [facility] [address] [place] [address] Mahsa Abbott PA Enlarged thyroid 07/10/2024 Travel 06/30/2024 3:20 PM CDT Office Visit [facility] [address] [facility] [place] [address] Mahsa Abbott PA Contraception (Wants to start depo); Follow Up (Rechecking from issues from last visit, nothing is better) 06/30/2024 Travel 05/19/2024 Refill [facility] [address] [place] [address] Mahsa Abbott PA Refill Request (Diflucan) 05/19/2024 Nurse Triage [facility] [address] [place] [address] Mahsa Abbott PA Questions (Right leg. ) 05/17/2024 4:00 PM CDT Ancillary Procedure [facility] [address] [place] [address] 05/17/2024 3:45 PM CDT Ancillary Procedure [facility] [address] [facility] [place] [address] 05/17/2024 2:40 PM CDT Office Visit [facility] [address] [facility] [place] [address] Mahsa Abbott PA Concerns ([place] a lump on R side of face, [...] the antibiotics) 05/17/2024 Travel 04/26/2024 2:10 PM TRACK REPAIR LABORER Office Visit [facility] [address] [place] [address] Nallely Swartz PA Rectal Problem (foul smelling odor from rectum, has had gi issues since oral sex, fatigue, jaw issues feels like it is infected, states she smells like fish from her rectum, now having stomach pain, vaginal discharge, and odor and burning/ongoing for 2 years ) 04/26/2024 Travel 04/19/2024 2:20 PM TRACK REPAIR LABORER Office Visit [facility] [address] [facility] [place] [address] Mahsa Abbott PA Derm Problem (herpes) 04/19/2024 [...] on file Legal Sex Female 5:21 AM TRACK REPAIR LABORER Gender Identity Not on file Sexual Orientation [...] oz) F 9 9 BLAED E,BG Delivery Location:[facility] Last Filed Vital Signs Vital Sign Reading Time Taken Comments Blood Pressure 118/74 07/13/2024 9:44 AM CDT Pulse 81 07/13/2024 9:44 AM CDT Temperature 36.7 C (98.1 F) 06/30/2024 3:23 PM CDT Respiratory Rate 18 04/26/2024 2:30 PM TRACK REPAIR LABORER Oxygen Saturation 100% 07/13/2024 9:44 AM CDT Inhaled Oxygen Concentration - - Weight 52.2 kg (115 lb) 07/13/2024 9:44 AM CDT Height 157.5 cm (5' 2) 03/23/2022 11:14 AM TRACK REPAIR LABORER Body Mass Index 21.03 03/23/2022 11:14 AM TRACK REPAIR LABORER Plan of Treatment Upcoming Encounters Date Type Department Care Team (Late st Contact Info) Description 08/14/2024 3:20 PM CDT Office Visit [facility] [address] [facility] [place] [address] Mahsa Abbott PA [address] [place] [address] Health Maintenance Due Date Last Done Comments [...] VAGINOSIS BY JUDI Routine 04/26/2024 3:24 PM TRACK REPAIR LABORER Vaginal odor 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) Routine 04/19/2024 3:46 PM TRACK REPAIR LABORER Skin lesion 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) Routine 04/19/2024 3:46 PM TRACK REPAIR LABORER Skin lesion TREPONEMA PALLIDUM Routine 04/19/2024 3: 30 PM TRACK REPAIR LABORER Screen for STD (sexually transmitted disease) ANTI HIV 1/2 Routine 04/19/2024 3:30 PM TRACK REPAIR LABORER Screen for STD (sexually transmitted disease) HSV TYPE 1/2 DNA QL PCR (BLOOD AND NON BLOOD) (QUEST) Routine 04/19/2024 3:30 PM TRACK REPAIR LABORER Screen for STD (sexually transmitted disease) LC HCV ANTIBODY RFX TO QUANT PCR Routine 03/23/2022 12:03 PM TRACK REPAIR LABORER Screen for STD (sexually transmitted disease) HPV HIGH RISK Routine 03/23/2022 11:36 AM TRACK REPAIR LABORER Cervical cancer screening Screening for cervical cancer from Last 3 Months or Most Recently Relevant to Health Maintenance Results * CELIAC CASCADE PANEL (07/13/2024 10:30 AM CDT) CELIAC DISEASE COMPREHENSIVE PANEL INTERPRETATION [facility] [place] Comment: No serological evidence of celiac disease. tTG IgA may normalize in individuals with celiac disease who maintain a gluten-free diet. Consider HLA DQ2 and DQ8 testing to rule out celiac disease. Celiac disease is extremely rare in the absence of DQ2 or DQ8. TISSUE TRANSGLUTAMINASE AB, IGA <1.0 U/mL [facility] [place] Comment: Value Interpretation ----- <15.0 Antibody not detected > or = 15.0 Antibody detected IMMUNOGLOBULIN A 174 47 - 310 mg/dL [facility] [place] Blood BLOOD SPECIMEN / Unknown 07/13/2024 10:30 AM CDT 07/13/2024 10:30 AM CDT Mitul Solitario MD SEND OUTS Final Res ult [facility] [address] [place] [address], [facility] [address] [place] [address] * US THYROID/PARATHYROID (07/10/2024 11:51 AM CDT) [...] PM CDT) POC HCG URINE NEGATIVE NEGATIVE [facility] Urine URINE SPECIMEN / Unknown 06/30/2024 3:52 PM CDT 06/30/2024 3:52 PM CDT Mahsa MENON URINE Final R esult [facility] [address] [place] [address], [facility] [address] [place] [address] * CT SINUS WO (05/17/2024 3:53 PM [...] BACTERIAL VAGINOSIS BY JUDI (04/26/2024 3:24 PM TRACK REPAIR LABORER) [place]ANKLIN SPECIES Negative Negative 5 3:48 AM TRACK REPAIR LABORER [facility] FRANKLIN GLABRATA Negative Negative 04/27/2024 3:48 AM TRACK REPAIR LABORER [facility] TRICHOMONAS VVA Negative Negative 5 3:48 AM TRACK REPAIR LABORER [facility] BACTERIAL VAGINOSIS Negative Negative 04/27/2024 3:48 AM TRACK REPAIR LABORER [facility] Other VAGINAL SWAB / Unknown Non-Blood / Unknown 04/26/2024 3:24 PM TRACK REPAIR LABORER 04/26/2024 6:46 PM TRACK REPAIR LABORER Nallely MENON MICROBIOLOGY Final R esult Performing Organization Address City/[facility]/ZIP Co de Phone Number [facility] [address] [place] [address], [place] * 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) (04/19/2024 3:46 PM TRACK REPAIR LABORER) Only the most recent of2 resultswithin the time period is included. Pathologist [facility] HSV 1 Negative Negative 04/21/2024 11:40 AM TRACK REPAIR LABORER [facility] HSV 2 Negative Negative 04/21/2024 11:40 AM TRACK REPAIR LABORER [facility] Other LESION SPECIMEN / Unknown Non-Blood / Unknown 04/19/2024 3:46 PM TRACK REPAIR LABORER 04/19/2024 3:46 PM TRACK REPAIR LABORER Narrative [facility] - 04/21/2024 11:40 AM TRACK REPAIR LABORER Results from the Aptima HSV 1 & 2 assay should be interpreted in conjunction with other clinical data available to the clinician. A negative Aptima HSV 1 & 2 assay result does not preclude a possible infection because results are dependent on adequate specimen collection. Mahsa MENON MICROBIOLOGY Final R esult Performing Organization Address City/[facility] Co de Phone Number [facility] [address] [place] [address], [place] * HSV TYPE 1/2 DNA QL PCR (BLOOD AND NON BLOOD) (QUEST) (04/19/2024 3:30 PM TRACK REPAIR LABORER) Pathologist [facility] SOURCE HSVPCR Blood [facility] HSV 1 DNA Not Detected Not Detected [facility] HSV 2 DNA Not Detected Not Detected [facility] Comment: (Note) This test was developed and its analytical performance characteristics have been determined by [facility]. It has not been cleared or approved by the U.S. Food and Drug Administration. This assay has been validated pursuant to the CLIA regulations and is used for clinical purposes. MD med fusion [address] [facility] [place] [address] Romero Barry MD, PhD BLOOD SPECIMEN / Unknown 04/19/2024 3:30 PM TRACK REPAIR LABORER 04/19/2024 3:33 PM TRACK REPAIR LABORER Mahsa MENON SEND OUTS Final R esult [facility] [address] [place] [phone], [facility] [address] [place] [address], [address] [place] [address] * TREPONEMA PALLIDUM (04/19/2024 3:30 PM TRACK REPAIR LABORER) TREPONEMA PALLIDUM Non-Reacti ve Non-Reacti ve 04/19/2024 11:48 PM TRACK REPAIR LABORER [facility] Blood BLOOD SPECIMEN / Unknown [facility] Collect / Unknown 04/19/2024 3:30 PM TRACK REPAIR LABORER 04/19/2024 3:30 PM TRACK REPAIR LABORER Mahsa MENON SEND OUTS Final R esult [facility] [address] [place] [address], * ANTI HIV 1/2 (04/19/2024 3:30 PM TRACK REPAIR LABORER) HIV AG/AB, 4TH GEN NON-REACT YA NON-REACT YA [facility] Comment: HIV-1 antigen and HIV-1/HIV-2 antibodies were [...] purpose. For additional information please refer to http://education.Smart Destinations/faq/YTH520 (This link is being provided for informational/ educational purposes only.) The performance of this assay has not been clinically validated in patients less than 2 years old. Blood BLOOD SPECIMEN / Unknown 04/19/2024 3:30 PM TRACK REPAIR LABORER 04/19/2024 3:33 PM TRACK REPAIR LABORER Mahsa MENON SEND OUTS Final R esult Performing Organization Address City/[facility]/ZIP Co de Phone Number [facility] [address] [place] [address], [facility] [address] [place] [phone] * LC HCV ANTIBODY RFX TO QUANT PCR (03/23/2022 12:03 PM TRACK REPAIR LABORER) HCV Ab <0.1 0.0 - 0.9 s/co ratio 03/25/2022 9:06 PM TRACK REPAIR LABORER [facility] Blood BLOOD SPECIMEN / Unknown Venipuncture / Unknown 03/23/2022 12:03 PM TRACK REPAIR LABORER 03/23/2022 12:05 PM TRACK REPAIR LABORER Narrative [facility] ([facility]) - 03/25/2022 9:06 PM TRACK REPAIR LABORER Performed at: [address] [place] [id number] Ophthalmic Technician Apprentice: Pedro Fields MD, Phone: [phone] Mahsa MENON LABORATORY Final R esult [facility] ([facility]) [address] [place] [address], * HPV HIGH RISK (03/23/2022 11:36 AM TRACK REPAIR LABORER) TYPE 16 Negative Negative 03/26/2022 2:05 PM TRACK REPAIR LABORER [facility] TYPE 18 Negative Negative 03/26/2022 2:05 PM TRACK REPAIR LABORER [facility] OTHER HIGH RISK TYPES Negative Negative 03/26/2022 2:05 PM TRACK REPAIR LABORER [facility] Other (Cervical) Non-Blood / Unknown 03/23/2022 11:36 AM TRACK REPAIR LABORER 03/24/2022 9:57 AM TRACK REPAIR LABORER Narrative [facility] - 03/26/2022 2:05 PM TRACK REPAIR LABORER HPV types 16, 18, 31, 33, 35, 39, 45, 51, 52, 56, 58, 59, 66 and 68 DNA were undetectable or below the pre-set threshold. Methodology: [employer] 4800 HPV Test us Mahsa MENON MICROBIOLOGY Final R esult [facility] [address] [place] [address], from Last 3 Months or Most Recently Relevant to Health Maintenance [place] [address] [address] [facility] Member Subscriber Plan / Payer (Ef fective 2017-Present) Name:Jayde Bee Relation to Subscriber:Employee Name:[employer] Date of :2002 (Home) Address: [address] [address] [address] Payer ID:Not on file Group ID:Not on file Type:Not on file Address: [address] [facility] [address] [place] [address] [place] [address] [address] [facility] Member Subscriber Plan / Payer (Ef fective 2017-Present) Name:Jayde Bee Relation to Subscriber:Employee Name:[employer] Date of :2002 (Home) Address: [address] [place] [address] Payer ID:Not on file Group ID:Not on file Type:Not on file Address: [address] [facility] [address] [place] [address] [address] [place] [id number] [facility] [employer] [address] [place] [id number] [address] [place] [id number] Advance Directives * Full Code (Latest Code Status on File) Date Activated Date Inactivated Comments 09/24/2013 3:47 PM 09/25/2013 12:39 AM * Full Code Date Activated Date Inactivated Comments 09/11/2013 6:31 PM 09/24/2013 3:47 PM * Full Code Date Activated Date Inactivated Comments 12/13/2012 2:17 AM 12/15/2012 9:12 PM Care Teams Cnc Grinder Relationship Specialty Start Date End Date Mahsa Abbott PA [address] [place] [address] [address] PCP - General Family Practice 03/23/12
[2024-07-16 17:32] LABS: Slide Review Reflex No
[2024-07-16 17:37] LABS: Chloride* 106 mmol/L (96-114); Potassium* 3.7 mmol/L (3.6-5.1); Sodium* 140 mmol/L (135-149)
[2024-07-16 17:41] LABS: Anion Gap 10 mEq/L (7-15); Blood Urea Nitrogen* 10 mg/dL (5-24); Calcium* 9.3 mg/dL (8.4-10.6); Carbon Dioxide* 24 mmol/L (20-32); Creatinine* 0.7 mg/dL (0.5-1.5); Est. Creatinine Clearance* 92.94; Estimated Glomerular Filt Rate 119 ml/min; Glucose* 75 mg/dL (60-115)
[2024-07-16 17:44] LABS: C Reactive Protein* < 0.5 mg/dL (0.5-1.0)
--- NOTE | 2024-07-16 18:34 | ED_ITS ---
HPI - General Adult General Date Seen: 07/16/24 Chief complaint: Jaw Injury/Pain Stated complaint: Jaw Cyst Pain Time Seen by Provider: 07/16/24 16:15 Source: patient Mode of arrival: ambulatory Limitations: no limitations History of Present Illness HPI narrative: Patient is a 28-year-old female presenting to the emergency department for concerned she has a staph infection. She states she has a cyst in her right Buccal region along with a burning sensation to the back of her legs. She states she had take out her earrings due to the believe that she has a staph infection. One month ago she was seen in this ED and was given Bactrim for a cellulitis to her right thigh. That has improved now she feels like everything is coming back. She has spoken to her primary care provider and was told they do not see any signs of infection. She has not believe them so she has come here to for further evaluation. She is concerned she is going to get more sick. She also noticed some white spots in her mouth. She was concerned could be a yeast infection. Does states she has a vaginal yeast infection. Has not had any fevers or chills. States her right eye feels swollen but does not have any pain with movement. Denies chest pain, shortness of breath, fevers. Does have abdominal pain but this is chronic for her and she is seeing GI for it. No changes there. Has recently had a tooth removed which she states relieved a small amount of pressure but she still having symptoms. She states her dentist told her her symptoms are not dental related. Related Data Home Medications ?Medication ?Instructions ?Recorded ?Confirmed sumatriptan succinate 100 mg tablet 100 mg PO DAILY PRN migraine 05/19/24 07/16/24 Allergies Allergy/AdvReac Type Severity Reaction Status Date / Time No Known Drug Allergies Allergy Verified 07/16/24 15:06 Review of Systems Status of ROS: Reports: 10 or more systems reviewed and unremarkable except as noted in History and below [facility] Social History Smoking Status: Current every day smoker What tobacco products do you use: cigarettes Do you use any of these nicotine containing products: E-Cigarettes and Vaping Products Second hand tobacco smoke exposure: No How often do you have a drink containing alcohol: never AUDIT-C Alcohol total score: 0 Non-prescribed substance use: marijuana (any form) service: No Exam Narrative: Exam Narrative: Const: Well-nourished, Well-developed, in mild distress Eyes: PERRL, no conjunctival injection, and symmetrical lids HENT: Atraumatic external nose and ears. Moist mucous membranes. No swelling noted to her face and I do not feel the cyst that she is trying to describe. I do not noticed any white spots on her gums on examination. Uvula midline, no tonsillar exudate or swelling. No swelling noted under the tongue. Good dentition Neck: Symmetric, trachea midline, No thyromegaly. No swelling noted CVS: RRR, No murmurs or gallops. Peripheral pulses 2+ and equal in all extremities RESP: Unlabored respiratory effort. Clear to auscultation bilaterally. GI: Nontender/Nondistended, No rebound or guarding. MSK:Extremities w/o deformity, Normal Active ROM Skin: Warm, Dry. No rashes or lesions. No abnormalities seen on her skin Neuro: Normal Muscle tone, No focal neurological deficits. Psych: Awake, Alert, & Oriented x3. Appropriate mood and affect. Const: Vital Signs, click to edit/add: Vital Signs - 24 hr 07/16/24 14:56 07/16/24 16:55 Temperature 98.6 F Pulse Rate 76 Pulse Rate [Pulse Oximeter] 86 Respiratory Rate 18 16 Blood Pressure 143/95 H Blood Pressure [Ri ght Upper Arm] 141/95 H Pulse Oximetry 100 100 Oxygen Delivery Me thod Room Air Room Air Course Vital Signs Vital signs: Initial Vital Signs Temperature 98.6 F 07/16/24 14:56 Temperature Source Temporal Artery Scan 07/16/24 14:56 Pulse Rate 86 07/16/24 14:56 Respiratory Rate 18 07/16/24 14:56 Blood Pressure 141/95 H 07/16/24 14:56 Blood Pressure Mean 110 H 07/16/24 14:56 Blood Pressure Position Sitting 07/16/24 14:56 Pulse Oximetry 100 07/16/24 14:56 Oxygen Delivery Method Room Air 07/16/24 14:56 Vital Signs Temperature 98.6 F 07/16/24 14:56 Pulse Rate 86 07/16/24 14:56 Respiratory Rate 18 07/16/24 14:56 Blood Pressure 141/95 H 07/16/24 14:56 Pulse Oximetry 100 07/16/24 14:56 Oxygen Delivery Method Room Air 07/16/24 14:56 Temperature 98.6 F 07/16/24 14:56 Pulse Rate 76 07/16/24 16:55 Respiratory Rate 16 07/16/24 16:55 Blood Pressure 143/95 H 07/16/24 16:55 Pulse Oximetry 100 07/16/24 16:55 Oxygen Delivery Method Room Air 07/16/24 16:55 Medical Decision Making MDM Narrative Medical decision making narrative: Patient is a 28-year-old female presenting for concerned she has a staph infection. I did evaluate the back of her legs that she states are burning but they appear normal on my exam. No rashes seen. No erythema. I do not notice any obvious cyst that she is describing an overall I do not see any asymmetry to her face. I will do a CT scan to look for any abnormalities. BMP, CBC and CRP were also ordered. Her lab work is all normal. CT scan shows a possibly mildly swollen right submental lymph node but no obvious signs of infection. I explained to her I do not see any signs of infection on my exam and antibiotics and not indicated this time. She continues to have the symptoms on her face she needs to follow-up with ENT. She she asked about a referral to ID and I told her she needs to see her primary care provider for that. She states she understands and agrees to discharge Lab Data Labs: Lab Results 07/16/24 Range/Units 17:00 WBC 8.51 (4.50-11.00) K/uL RBC 4.28 (4.00-5.20) m/uL Hgb 13.8 (12.0-16.0) gm/dL Hct 40.4 (33.0-51.0) % MCV 94 (80-100) fL MCH 32 (26-34) pg MCHC 34 (32-36) gm/dL RDW Coeff of Kasey 12.3 (11.5-15.5) % Plt Count 234 (140-440) K/uL Neut % (Auto) 61.6 (42.0-72.0) % Lymph % (Auto) 31.3 (20-44) % Warren % (Auto) 5.8 (0.0-11.0) % Eos % (Auto) 0.7 (0.0-7.0) % Baso % (Auto) 0.5 (0.0-3.0) % Neut # (Auto) 5.25 (1.7-7.0) K/uL Lymph # (Auto) 2.66 (0.90-2.90) K/uL Warren # (Auto) 0.50 (0.00-0.90) K/UL Eos # (Auto) 0.06 (0.00-0.50) K/uL Baso # (Auto) 0.04 (0.00-0.30) K/uL Abs Immat Gran (auto) 0.01 (0.00-0.30) K/uL Imm/Tot Granulo (auto) 0.1 % Sodium 140 (135-149) mmol/L Potassium 3.7 (3.6-5.1) mmol/L Chloride 106 (96-114) mmol/L Carbon Dioxide 24 (20-32) mmol/L Anion Gap 10 (7-15) mEq/L BUN 10 (5-24) mg/dL Creatinine 0.7 (0.5-1.5) mg/dL Estimated Creat Clear 92.94 Estimated GFR 119 ml/min Glucose 75 (60-115) mg/dL Calcium 9.3 (8.4-10.6) mg/dL C-Reactive Protein < 0.5 L (0.5-1.0) mg/dL Imaging Data CT scan soft tissue neck: Attestation: I have reviewed the pertinent imaging results. Radiologist's impression: 1. No mass or fluid collection in the neck. No concerning inflammatory stranding. 2. Borderline enlarged right submental lymph node is nonspecific, though may be reactive. Please note that all CT scans at this facility use dose modulation, iterative reconstruction, and/or weight-based dosing when appropriate to reduce radiation dose to as low as reasonably achievable. Dictated by Ben Siegel MD @ 07/16/2024 5:59:18 PM Discharge Plan Discharge Clinical Impression: Discomfort of face Patient Disposition: Home, Self-Care Condition: Stable Additional Instructions: On my exam I do not see any acute concerning emergent issues. At this time there is no clear signs that would warrant antibiotics. If you want to be further evaluated he can try following up with ENT. I provided their card. If you want to see infectious disease you will need a referral by your primary care provider Prescriptions: No Action sumatriptan succinate 100 mg tablet 100 mg PO DAILY PRN (Reason: migraine) Follow Up/Referrals: Mahsa Abbott PA-C [Primary Care Provider] - Stand Alone Forms: [employer] Info Instructions
== END 2024-07-16 18:46 | disposition home or self-care (01) ==
PROVIDERS: Emergency Provider Student in an Organized Health Care Education/Training Program; PCP Physician Assistant Medical
DX: R59.0 Localized enlarged lymph nodes (principal)
CPT/HCPCS: 36415; 70491; 80048; 85025; 86140; 99283; 99284; Q9967